=== PATIENT | male | born 1950 | race Caucasian/White ===

== ENCOUNTER 2019-10-23 05:34 | Outpatient (RCR) | payer MEDICARE, OTHER, SELFPAY | END 2019-10-23 23:59 | disposition home or self-care (01) | LOC: ONCRAD 05:34 | PROVIDERS: Family Provider Family Medicine; Referring Provider Internal Medicine Pulmonary Disease; Visit Provider Nurse Practitioner Family | DX: Z51.0 Encounter for antineoplastic radiation therapy (principal); C34.2 Malignant neoplasm of middle lobe, bronchus or lung; C77.8 Secondary and unspecified malignant neoplasm of lymph nodes of multiple regions; C79.31 Secondary malignant neoplasm of brain; C44.41 Basal cell carcinoma of skin of scalp and neck; Z79.82 Long term (current) use of aspirin; Z79.52 Long term (current) use of systemic steroids; Z79.899 Other long term (current) drug therapy | CPT/HCPCS: 77336; 77386 ×5 ==

== ENCOUNTER 2019-10-28 06:11 | Outpatient (RCR) | payer MEDICARE, OTHER, SELFPAY | END 2019-11-17 00:01 | LOC: ONCRAD 06:11 | PROVIDERS: Family Provider Family Medicine; Referring Provider Internal Medicine Pulmonary Disease; Visit Provider Internal Medicine Medical Oncology | DX: C34.2 Malignant neoplasm of middle lobe, bronchus or lung (principal); C79.31 Secondary malignant neoplasm of brain; C77.8 Secondary and unspecified malignant neoplasm of lymph nodes of multiple regions; I10 Essential (primary) hypertension; I25.10 Atherosclerotic heart disease of native coronary artery without angina pectoris; K44.9 Diaphragmatic hernia without obstruction or gangrene; K21.9 Gastro-esophageal reflux disease without esophagitis; N40.0 Benign prostatic hyperplasia without lower urinary tract symptoms; F10.21 Alcohol dependence, in remission; N20.0 Calculus of kidney; E07.89 Other specified disorders of thyroid; Z85.828 Personal history of other malignant neoplasm of skin; Z92.3 Personal history of irradiation; Z87.891 Personal history of nicotine dependence; Z79.899 Other long term (current) drug therapy; Z79.82 Long term (current) use of aspirin; Z79.52 Long term (current) use of systemic steroids | CPT/HCPCS: 99214 ==

== ENCOUNTER 2019-12-07 14:15 | Outpatient (CLI) | payer MEDICARE, OTHER, SELFPAY ==
--- NOTE | 2019-12-07 14:22 | CT_ITS ---
WS: [id number] CT CHEST WITH INTRAVENOUS CONTRAST HISTORY: LUNG CANCER TECHNIQUE: Contiguous 5 mm axial imaging performed on the thorax. Coronal and sagittal reformats are submitted. All CT scans at [facility] use at least one of these dose optimization techniq ues: automated exposure control; mA and/or kV adjustment per patient size (includes targeted exams wh ere dose is matched to clinical indication); or iterative reconstruction. CONTRAST: Omnipaque 300; 95 mL IV. DLP: 618.3 mGy.cm COMPARISON: 01/29/2019 and 12/09/2018, PET/CT 05/16/2019 Lungs and central airway: Mild pulmonary hyperinflation. Residual soft tissue in the RIGHT lower lobe abutting the RIGHT heart and pericardium measures 1.9 x 0.7 cm. There is within an area of the previ ously described soft tissue mass. There is a small amount of adjacent interstitial thickening in the RIGHT lower lobe and also in the azygos esophageal recess. No new mass. Pleura: Normal. No pleural effusion. Heart and pericardium: Normal size heart. No pericardial effusion. Mediastinum and jose juan: Stable RIGHT hilar lymph node measures 9 mm in diameter. No adenopathy or incre ase in size of the lymph nodes. Vessels: Mild atherosclerosis aorta with no aneurysm. Normal pulmonary artery size. Chest wall and lower neck: No soft tissue masses. Upper abdomen: LEFT renal cyst measures 4.8 cm and incompletely visualized. There are a few scattered hypodensities within the liver which are too small to characterize. No adrenal mass. Osseous structures: Increase in thoracic kyphosis. Bones are osteopenic with Schmorl's nodes. Similar findings as compared to prior examinations. CT/CT chest w con* [id number] IMPRESSION: 1. Small residual soft tissue mass in the anterior RIGHT lower lobe from the t reated neoplasm. May be at the residual of posttreated neoplasm. Decrease in si ze since 01/29/2019 and but slightly more prominent as compared to the PET/CT of 05/16/2019. Recommend follow-up chest CT in 3-4 months. 2. No adenopathy. 3. No adrenal mass. 4. Chronic emphysema and mild atherosclerosis aorta.
[2019-12-07 16:35] LABS: Blood Urea Nitrogen 19 mg/dL (8-23)
[2019-12-07] MEDS: iohexol 300 mg/mL 100 mL Btl IV (16:51)
== END 2019-12-07 14:16 | disposition home or self-care (01) ==
LOC: RAD 14:19
PROVIDERS: Family Provider Family Medicine; PCP Family Medicine; Visit Provider Radiology Radiation Oncology
DX: C77.8 Secondary and unspecified malignant neoplasm of lymph nodes of multiple regions (principal); C34.2 Malignant neoplasm of middle lobe, bronchus or lung; J43.9 Emphysema, unspecified; I70.0 Atherosclerosis of aorta; Z92.3 Personal history of irradiation
CPT/HCPCS: 36415; 71260; 82565; 84520

== ENCOUNTER 2019-12-08 04:25 | Emergency (ER) | payer MEDICARE, OTHER, SELFPAY ==
[2019-12-08] VITALS (21 sets, daily range): BP systolic 141–189; BP diastolic 87–104; PULSE 18–93; RESP 10–18; TEMP 36.6; O2SAT 95–100; BMI 26.5
--- NOTE | 2019-12-08 04:32 | ED_ITS ---
Entered by Nakita Victoria, acting as scribe for Laurie Ness Documented by User: Laurie Ness 12/08/19 05:15 HPI - General Adult General: Chief complaint: General Medical Stated complaint: BP OUT OF CONTROL Time Seen by Provider: 12/08/19 04:27 Source: patient Mode of arrival: ambulatory History of Present Illness: HPI narrative: 69 y/o male presents to the ED with complaint of elevated BP. Pt states he has hx of this but it has been more erratic over the past 4 days. Pt states he has had some lightheadedness, which prompted him to check his BP. In the past, it has been related to urinary retention and could be resolved upon emptying his bladder. 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 Onset (ago): day(s) (4) Location: head Severity: mild Pain Consistency: intermittent Relieving factors: none Associated symptoms: Deny chest pain, confusion, diaphoresis, dyspnea, headache(s), malaise, nausea, rash, syncope or vomiting Treatments prior to arrival: other (self cath) Review of Systems Const: Denies: fever, chills, body aches, fatigue, malaise or diaphoresis Eyes: Denies: change in vision or blurry vision ENMT: Denies: throat pain, painful swallowing, hoarseness, ear pain, ear discharge, Change in hearing or nasal discharge Card: Denies: chest pain or syncope Resp: Denies: shortness of breath, productive cough, non-productive cough, wheezing, coughing up blood or chest congestion GI: Denies: abdominal pain, nausea, vomiting, vomiting blood, coffee grounds in vomit, diarrhea, constipation, cramping, blood in stool or black tarry stool Musc: Denies: neck pain, back pain, extremity pain, extremity swelling, joint pain, joint swelling, joint warmth or joint stiffness Skin/Breast: Denies: rash or yellow skin Neuro: Denies: headache, numbness in extremities, weakness in extremities, changes in sensation, lack of coordination, difficulty walking, dizziness, vertigo or confusion Endo: Denies: excessive thirst, tired all the time, cold intolerance, excessive sweating, flushing or hot flashes Az/Lymph: Denies: easy bruising, easy bleeding, petechiae or enlarged lymph nodes All/Imm: Denies: hives, throat swelling, tongue swelling, facial swelling or acute wheezing PFSH ED PFSH: Statuses (acute, chronic, etc) shown below reflect problem list status as previously entered and may not be historically accurate Social History Smoking and tobacco status: former smoker Physical Exam Const: COMMON NORMALS: no apparent distress, oriented x3, no limitations and well nourished EXAM LIMITATIONS: no altered mental status GENERAL APPEARANCE: cooperative, well kempt and well developed ORIENTATION/CON SCIOUSNESS: Yes awake HENMT: COMMON NORMALS: normocephalic, external ears normal, EAC's normal, external nose normal and moist oral mucous membranes HEAD & SCALP: normocephalic FACE & SINUS: normal facial exam and face symmetric NOSE: external nose normal and nares normal EXTERNAL EAR: Yes external ears normal EXTERNAL AUDITORY CANAL: EAC's normal MOUTH: oral and palatal mucosa normal and tongue normal Eye: COMMON NORMALS: PERRL, EOMs intact bilaterally, conjunctivae normal and no scleral icterus GENERAL EYE: normal appearance of both eyes and normal light reflex CONJUNCTIVA: Yes conjunctivae normal SCLERA: sclerae normal CORNEA: Yes corneas normal PUPIL: Yes PERRL DIRECT OPHTHALMOSCOPY: Yes normal light reflex Neck/C-Spine: COMMON NORMALS: full ROM, no lymphadenopathy, supple, no meningeal signs and no JVD GENERAL: Yes normal visual inspection and Yes trachea midline CERVICAL SPINE: Yes cervical ROM normal Chest: COMMONS NORMALS: inspection of chest normal and palpation of chest normal Resp: COMMON NORMALS: normal respiratory effort, no retractions, no use of accessory muscles and clear to auscultation bilaterally EFFORT & INSPECTION: Yes able to speak in complete sentences AUSCULTATION: clear to auscultation bilaterally Cardio: COMMON NORMALS: no JVD GI: COMMON NORMALS: soft to palpation, non-tender, no hepatosplenomegaly and no masses INSPECTION: Yes normal to inspection PALPATION: Yes soft and Yes no hepatosplenomegaly : COMMON NORMALS: Yes no CVA tenderness BLADDER/KIDNEY EXAM: Yes no CVA tenderness Back/Pelvis: COMMON NORMALS: no CVA tenderness, thoracic and lumbar spine normal to inspection, no thoracic nor lumbar tenderness and thoraco-lumbar ROM normal Extremity: COMMON NORMALS: normal to inspection, full ROM, normal capillary refill, no joint enlargement, no clubbing, cyanosis or edema and no calf tenderness Neuro: COMMON NORMALS: oriented x3, CN's II-XII intact bilaterally, moves all extremities, no focal motor deficits and no sensory deficits noted MENINGEAL SIGNS: Yes no meningeal signs Psych: COMMON NORMALS: mental status grossly normal, thought process normal, cooperative, affect normal, speech normal and activity/motor behavior normal APPEARANCE: Yes well kempt SPEECH: Yes normal speech THOUGHT PROCESS: normal thought process Skin: COMMON NORMALS: no rashes or lesions noted, skin turgor normal, no jaundice, no petechiae and no mottling GENERAL SKIN EXAM: no rashes or lesions noted and turgor normal Course Vital Signs: Vital signs: Vital Signs Temperature 97.8 F 12/08/19 04:29 Pulse Rate 80 12/08/19 06:25 Respiratory Rate 14 12/08/19 05:55 Blood Pressure 154/96 12/08/19 06:25 Pulse Oximetry 96 12/08/19 06:25 MDM - General Adult MDM Narrative: Medical decision making narrative: Arrival -patient comes in with concern of his blood pressure being up and down for the past 4 days. Differential for this is long including infection, catecholamine surge, hypertensive emergency/urgency among others. Patient is having no headache, chest pain, shortness of breath but does have lightheadedness. We will check orthostatics and perform a cardiac evaluation. We will monitor the patient to see if his blood pressure improves on its own as it is not in a dangerous range at this time. Lab Data: Labs: Lab Results 12/08/19 12/08/19 12/08/19 Range/Units 04:45 05:10 05:10 WBC 3.5 L (4.0-10.0) 10^3/ uL RBC 4.18 (4.1-5.3) 10^6/u L Hgb 12.4 (11.7-16.6) g/dL Hct 39.5 L (42.0-52.0) % MCV 94.5 H (80-94) fL MCH 29.7 (28.0-34.0) pg MCHC 31.4 (30.0-36.0) g/dL RDW 13.5 (12.1-15.1) % Plt Count 199 (130-400) 10^3/c mm MPV 10.6 H (7.4-10.4) fL Neut % (Auto) 55.0 % Lymph % (Auto) 23.2 % [place] % (Auto) 16.5 % Eos % (Auto) 4.1 % Baso % (Auto) 0.9 % Neut # (Auto) 1.9 (1.8-7.7) 10^3/u L Lymph # (Auto) 0.8 (0.8-4.8) 10^3/u L [place] # (Auto) 0.6 (0.2-0.9) 10^3/u L Eos # (Auto) 0.1 (0.0-0.8) 10^3/u L Baso # (Auto) 0.0 (0.0-0.1) 10^3/u L Nucleated RBC % (a uto) 0 % Nucleated RBCs # 0.0 /100WBC Sodium 140 (136-145) mmol/L Potassium 4.0 (3.5-5.1) mmol/L Chloride 102 (98-107) mmol/L Carbon Dioxide 26 (22-29) mmol/L Anion Gap 16.0 (5-19) BUN 16 (8-23) mg/dL Creatinine 1.0 (0.7-1.2) mg/dL Glucose 105 (74-106) mg/dL Calcium 10.0 (8.8-10.2) mg/Dl Total Bilirubin 0.2 (0.15-1.2) mg/dL AST 16 (0-40) U/L ALT 9 (0-41) U/L Alkaline Phosphata se 87 (40-130) IU/L Troponin T Baselin e 12 (0-15) ng/mL Troponin T 120 Min [place] (0-15) ng/mL Delta Troponin T (0-10) ABS# Total Protein 7.2 (6.6-8.7) g/dL Albumin 4.0 (3.5-5.2) g/dL Globulin 3.2 (1.3-4.6) g/dL 12/08/19 Range/Units 07:27 WBC (4.0-10.0) 10^3/ uL RBC (4.1-5.3) 10^6/u L Hgb (11.7-16.6) g/dL Hct (42.0-52.0) % MCV (80-94) fL MCH (28.0-34.0) pg MCHC (30.0-36.0) g/dL RDW (12.1-15.1) % Plt Count (130-400) 10^3/c mm MPV (7.4-10.4) fL Neut % (Auto) % Lymph % (Auto) % [place] % (Auto) % Eos % (Auto) % Baso % (Auto) % Neut # (Auto) (1.8-7.7) 10^3/u L Lymph # (Auto) (0.8-4.8) 10^3/u L [place] # (Auto) (0.2-0.9) 10^3/u L Eos # (Auto) (0.0-0.8) 10^3/u L Baso # (Auto) (0.0-0.1) 10^3/u L Nucleated RBC % (a uto) % Nucleated RBCs # /100WBC Sodium (136-145) mmol/L Potassium (3.5-5.1) mmol/L Chloride (98-107) mmol/L Carbon Dioxide (22-29) mmol/L Anion Gap (5-19) BUN (8-23) mg/dL Creatinine (0.7-1.2) mg/dL Glucose (74-106) mg/dL Calcium (8.8-10.2) mg/Dl Total Bilirubin (0.15-1.2) mg/dL AST (0-40) U/L ALT (0-41) U/L Alkaline Phosphata se (40-130) IU/L Troponin T Baselin e (0-15) ng/mL Troponin T 120 Min [place] 14.77 (0-15) ng/mL Delta Troponin T 2.77 (0-10) ABS# Total Protein (6.6-8.7) g/dL Albumin (3.5-5.2) g/dL Globulin (1.3-4.6) g/dL EKG Data^: EKG 1: Attestation: I personally reviewed and interpreted this EKG as follows: EKG interpretation date: 12/08/19 EKG interpretation time: 05:10 Prior EKG tracings: not available for review Interpretation: Normal sinus rhythm at 89 beats a minute, normal MD segments, normal QRS duration, normal QTC. Normal axis, no acute ST or T wave changes. 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 Problem Focused Documented by User: Jamie Vail DO 12/08/19 08:30 HPI - General Adult General: Chief complaint: General Medical Stated complaint: BP OUT OF CONTROL Time Seen by Provider: 12/08/19 04:27 PFSH ED PFSH: Statuses (acute, chronic, etc) shown below reflect problem list status as previously entered and may not be historically accurate Social History Smoking and tobacco status: former smoker Course Vital Signs: Vital signs: Vital Signs Temperature 97.8 F 12/08/19 04:29 Pulse Rate 80 12/08/19 06:25 Respiratory Rate 14 12/08/19 05:55 Blood Pressure 154/96 12/08/19 06:25 Pulse Oximetry 96 12/08/19 06:25 MDM - General Adult Lab Data: Labs: Lab Results 12/08/19 12/08/19 12/08/19 Range/Units 04:45 05:10 05:10 WBC 3.5 L (4.0-10.0) 10^3/ uL RBC 4.18 (4.1-5.3) 10^6/u L Hgb 12.4 (11.7-16.6) g/dL Hct 39.5 L (42.0-52.0) % MCV 94.5 H (80-94) fL MCH 29.7 (28.0-34.0) pg MCHC 31.4 (30.0-36.0) g/dL RDW 13.5 (12.1-15.1) % Plt Count 199 (130-400) 10^3/c mm MPV 10.6 H (7.4-10.4) fL Neut % (Auto) 55.0 % Lymph % (Auto) 23.2 % [place] % (Auto) 16.5 % Eos % (Auto) 4.1 % Baso % (Auto) 0.9 % Neut # (Auto) 1.9 (1.8-7.7) 10^3/u L Lymph # (Auto) 0.8 (0.8-4.8) 10^3/u L [place] # (Auto) 0.6 (0.2-0.9) 10^3/u L Eos # (Auto) 0.1 (0.0-0.8) 10^3/u L Baso # (Auto) 0.0 (0.0-0.1) 10^3/u L Nucleated RBC % (a uto) 0 % Nucleated RBCs # 0.0 /100WBC Sodium 140 (136-145) mmol/L Potassium 4.0 (3.5-5.1) mmol/L Chloride 102 (98-107) mmol/L Carbon Dioxide 26 (22-29) mmol/L Anion Gap 16.0 (5-19) BUN 16 (8-23) mg/dL Creatinine 1.0 (0.7-1.2) mg/dL Glucose 105 (74-106) mg/dL Calcium 10.0 (8.8-10.2) mg/Dl Total Bilirubin 0.2 (0.15-1.2) mg/dL AST 16 (0-40) U/L ALT 9 (0-41) U/L Alkaline Phosphata se 87 (40-130) IU/L Troponin T Baselin e 12 (0-15) ng/mL Troponin T 120 Min [place] (0-15) ng/mL Delta Troponin T (0-10) ABS# Total Protein 7.2 (6.6-8.7) g/dL Albumin 4.0 (3.5-5.2) g/dL Globulin 3.2 (1.3-4.6) g/dL 12/08/19 Range/Units 07:27 WBC (4.0-10.0) 10^3/ uL RBC (4.1-5.3) 10^6/u L Hgb (11.7-16.6) g/dL Hct (42.0-52.0) % MCV (80-94) fL MCH (28.0-34.0) pg MCHC (30.0-36.0) g/dL RDW (12.1-15.1) % Plt Count (130-400) 10^3/c mm MPV (7.4-10.4) fL Neut % (Auto) % Lymph % (Auto) % [place] % (Auto) % Eos % (Auto) % Baso % (Auto) % Neut # (Auto) (1.8-7.7) 10^3/u L Lymph # (Auto) (0.8-4.8) 10^3/u L [place] # (Auto) (0.2-0.9) 10^3/u L Eos # (Auto) (0.0-0.8) 10^3/u L Baso # (Auto) (0.0-0.1) 10^3/u L Nucleated RBC % (a uto) % Nucleated RBCs # /100WBC Sodium (136-145) mmol/L Potassium (3.5-5.1) mmol/L Chloride (98-107) mmol/L Carbon Dioxide (22-29) mmol/L Anion Gap (5-19) BUN (8-23) mg/dL Creatinine (0.7-1.2) mg/dL Glucose (74-106) mg/dL Calcium (8.8-10.2) mg/Dl Total Bilirubin (0.15-1.2) mg/dL AST (0-40) U/L ALT (0-41) U/L Alkaline Phosphata se (40-130) IU/L Troponin T Baselin e (0-15) ng/mL Troponin T 120 Min [place] 14.77 (0-15) ng/mL Delta Troponin T 2.77 (0-10) ABS# Total Protein (6.6-8.7) g/dL Albumin (3.5-5.2) g/dL Globulin (1.3-4.6) g/dL 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
--- NOTE | 2019-12-08 04:40 | XR_ITS ---
WS: [id number] PORTABLE CHEST HISTORY: cough COMPARISON: 07/01/2019 Hyperexpanded lungs with emphysema. Linear area of atelectasis or scar in the RIGHT lower lung field. Interstitial thickening in the medial RIGHT lower lung field corresponds to an area of prior radiati on treatment. No pneumonia. No pleural effusion or pneumothorax. Cardiac size: Normal. Mediastinum/Aorta: Mild atherosclerosis aorta. No osseous abnormality seen. XR/XR chest 1V portable [id number] IMPRESSION: 1. Chronic emphysema and subsegmental atelectasis or scar in the RIGHT lower l sari field. 2. Postradiation changes in the medial RIGHT lower lung field. No definite pne umonia.
--- NOTE | 2019-12-08 04:44 | ECG_ITS ---
Measurements Intervals [place] Rate: 66 P: 56 AK: 179 QRS: 61 QRSD: 85 T: 58 QT: 391 QTc: 410 SINUS RHYTHM WITH SINUS ARRHYTHMIA Compared to ECG 07/01/2019 12:16:10 Sinus bradycardia no longer present Electronically Signed On 12-08-2019 22:02:28 IGNITER CAPPER by Jonathan Healy M.D. [email or web address] f
[2019-12-08 04:58] LABS: Basophils % 0.9 %; Eosinophils # 0.1 10^3/uL (0.0-0.8); Eosinophils % 4.1 %; Hematocrit 39.5 % (42.0-52.0); Hemoglobin 12.4 g/dL (11.7-16.6); Lymphocytes # 0.8 10^3/uL (0.8-4.8); Lymphocytes % 23.2 %; Mean Corpuscular HGB Conc 31.4 g/dL (30.0-36.0); Mean Corpuscular Hemoglobin 29.7 pg (28.0-34.0); Mean Corpuscular Volume 94.5 fL (80-94); Mean Platelet Volume 10.6 fL (7.4-10.4); Monocytes # 0.6 10^3/uL (0.2-0.9); Monocytes % 16.5 %; Neutrophils # 1.9 10^3/uL (1.8-7.7); Nucleated Red Blood Cells % 0 %; Platelet Count 199 10^3/cmm (130-400); Red Blood Count 4.18 10^6/uL (4.1-5.3); Red Cell Distribution Width 13.5 % (12.1-15.1); White Blood Count 3.5 10^3/uL (4.0-10.0)
[2019-12-08 05:28] LABS: Troponin(5th) Baseline 12 ng/mL (0-15)
[2019-12-08 05:31] LABS: Alanine Aminotransferase 9 U/L (0-41); Alkaline Phosphatase 87 IU/L (40-130); Aspartate Amino Transferase 16 U/L (0-40); Blood Urea Nitrogen 16 mg/dL (8-23); Carbon Dioxide 26 mmol/L (22-29); Chloride 102 mmol/L (98-107); Globulin 3.2 g/dL (1.3-4.6); Glucose 105 mg/dL (74-106); Sodium 140 mmol/L (136-145); Total Bilirubin 0.2 mg/dL (0.15-1.2); Total Protein 7.2 g/dL (6.6-8.7)
--- NOTE | 2019-12-08 06:44 | ECG_ITS ---
Measurements Intervals [place] Rate: 66 P: 56 NM: 179 QRS: 61 QRSD: 85 T: 58 QT: 391 QTc: 410 SINUS RHYTHM WITH SINUS ARRHYTHMIA Compared to ECG 07/01/2019 12:16:10 Sinus bradycardia no longer present Electronically Signed On 12-08-2019 22:07:37 PROJECT ASSISTANT by Jonathan Healy M.D. [email or web address]
[2019-12-08 07:52] LABS: Troponin 5 2HR 14.77 ng/mL (0-15); Troponin 5 2HR Delta 2.77 ABS# (0-10)
[2019-12-08] MEDS: hyDRALAzine 20 mg/mL INJ 1 mL 5 MG IVP (08:37)
== END 2019-12-08 09:02 | disposition home or self-care (01) ==
PROVIDERS: Emergency Provider Emergency Medicine; Family Provider Family Medicine; PCP Family Medicine
DX: I10 Essential (primary) hypertension (principal); Z87.891 Personal history of nicotine dependence
CPT/HCPCS: 36415; 71045; 80053; 84484; 85025; 93005; 96374; 99283; J0360

== ENCOUNTER 2019-12-09 06:13 | Outpatient (RCR) | payer MEDICARE, OTHER, SELFPAY | END 2019-12-18 23:59 | disposition home or self-care (01) | LOC: ONCMED 06:13 | PROVIDERS: Family Provider Family Medicine; PCP Family Medicine; Visit Provider Radiology Radiation Oncology | DX: C34.2 Malignant neoplasm of middle lobe, bronchus or lung (principal); C77.8 Secondary and unspecified malignant neoplasm of lymph nodes of multiple regions; C79.31 Secondary malignant neoplasm of brain; E03.8 Other specified hypothyroidism; Z79.891 Long term (current) use of opiate analgesic; Z79.52 Long term (current) use of systemic steroids; Z92.3 Personal history of irradiation; Z85.828 Personal history of other malignant neoplasm of skin; Z92.21 Personal history of antineoplastic chemotherapy; Z92.25 Personal history of immunosuppression therapy | CPT/HCPCS: 99213 ==

== ENCOUNTER 2020-01-26 15:22 | Outpatient (CLI) | payer MEDICARE, OTHER, SELFPAY ==
--- NOTE | 2020-01-30 17:30 | ONC FU_ITS ---
Dr. Brower Patient Follow-Up Note Patient: Logan Maynard Unit #: [id number]: 1950 Dicatated By: Gerald Brower M.D.Date of Visit:Jan 26, 2020 Onc Med Follow-up/Prog Note Chief Complaint: Lung cancer/basal cell skin cancer. History of Present Illness: This is a 69 year-old man with stage IV non-small cell lung cancer and a locally advanced basal cell carcinoma involving the right frontal scalp. He had initially presented to Dr. Sanchez in July with an enlarging right frontal scalp skin lesion. He was referred to Dr. Pugh and determined on biopsy to have basal cell carcinoma. His subsequent evaluation included a head CT on 09/24/2018 which showed a lobulated right frontal scalp mass measuring 4.5 x 4.2 x 0.7 cm with invasion of the right frontal bone cortex. There was abnormal attenuation noted in the right frontal lobe measuring 4.0 x 3.2 cm. Metastatic or primary brain tumor was suspected, and MRI was recommended. Further evaluation with PET/CT on 10/04/2018 reportedly showed uptake in a right middle lobe lung mass and in right paratracheal and right hilar lymph nodes. There was also uptake in cervical lymph nodes bilaterally. Neck CT on 10/20/2018 showed multiple enlarged pathologic appearing lower cervical level III and level IV lymph nodes as well as enlarged supraclavicular and anterior mediastinal lymph nodes. These corresponded to FDG avid lymph nodes on the PET/CT. 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 The tumor cells showed strong cytoplasmic staining for CK-HMW, moderately strong cytoplasmic staining for CK-CAM 5.2, and strong nuclear positivity for TTF-1. He was then seen by Dr. Harding in [place] for resection of the basal cell carcinoma and he subsequently had pulmonary consultation there with Dr. Brandon Doyle. Repeat PET/CT on 11/13/2018 showed similar findings with FDG avid right middle lobe lung mass measuring 3.6 x 3 cm and hypermetabolic ruba disease which included bilateral lower cervical chain, supraclavicular, mediastinal, and right hilar lymph nodes. There was a questionable tiny focus of hypermetabolic activity in the liver. The irregular skin lesion on the forehead was hypermetabolic and showed evidence of calvarial invasion. Chest CT on 11/17/2018 showed right middle lobe mass measuring 4.1 cm with enlarged mediastinal, right hilar, and supraclavicular lymph nodes. Bilateral subcentimeter pulmonary nodules were too small to characterize. On 11/28/2018 he underwent bronchoscopy with EBUS/FNA of the right middle lobe mass and station 11 R lymph node. The lymph node biopsy was nondiagnostic. Biopsy from the right middle lobe lung mass was positive for adenocarcinoma. It was noted that a very limited amount of tumor was present. PD-L1 testing was going to be attempted, but there was insufficient material present for additional studies. Following the procedure he developed urinary retention, which ultimately did improve with tamsulosin. However, in the meantime, he also developed hypertension. He was admitted to the hospital on 12/09/2017, and his cardiac evaluation at that time was negative for any acute ischemia. He returned to the emergency room one week later with new onset of dizziness and vomiting. CT abdomen/pelvis showed persistent right middle lobe lung mass, measuring about 3 cm. There was partial atelectasis of the right middle lobe and there was additional bilateral lower lobe subsegmental atelectasis and/or interstitial pneumonia. Head CT showed persistent and increased degree of vasogenic edema of the right frontal lobe suggestive of underlying neoplastic process. Irregular marginated frontal scalp lesion showed increased degree of subtle outer table cortical erosion of the underlying right frontal calvarium. He was admitted to the hospital and placed on IV dexamethasone and empiric IV antibiotic coverage with Levaquin. Further evaluation with brain MRI on 12/18/2018 showed a right frontal lobe enhancing neoplastic lesion measuring 1.5 x 1.2 x 1.4 cm. The appearance was suggestive of a solitary metastatic lesion. There was associated vasogenic white matter edema. His symptoms had improved with steroid therapy, and he was discharged home on dexamethasone 4 mg twice a day. He also continued antibiotic coverage with Levaquin. He was then seen by Dr. Munguia and he began electron-beam radiation to the scalp lesion on 12/22/2018. On 12/25/2018 he underwent SRS to the metastatic lesion in the brain, total dose 2000 cGy. He then continued with electron-beam radiation, and he completed treatment to the skin lesion on 01/16/2019, total dose 5500 cGy. In the meantime, I had requested a next generation sequencing study which showed low PD-L1 expression, reported at 10% to 22C3 by IHC. The ALK and ROS 1 gene rearrangements were not detected, and a BRAF mutation was not detected. 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 His other medical illnesses include hypertension, coronary artery disease, hiatal hernia/GERD, and benign prostatic hypertrophy. He has a history of smoking for 27 years, in the range of 2-3 packs of cigarettes daily. He quit smoking in 1992. He currently does not drink alcohol, though he did have significant alcohol use in the past. INTERIM HISTORY: On 02/16/2019 he began cycle 1 of systemic therapy with carboplatin/pemetrexed chemotherapy in combination with pembrolizumab. He tolerated it without significant toxicity. He continued with cycle 2 on 03/11/2019. His CBC at day 8 showed a decrease in his granulocyte count to 900. It resolved uneventfully with Neupogen. He continued with cycle 3 on 03/31/2019 and with cycle 4 on 04/21/2019, both administered with Neulasta prophylactically. Restaging PET/CT on 05/16/2019 showed resolution of the basal cell carcinoma of the right forehead. There was also resolution of bilateral jugulodigastric and supraclavicular lymph nodes compared to the prior study from September 2018. Superior mediastinal, right paratracheal, right parabronchial, and right hilar territory lymph nodes which previously had been prominent were noted to be subcentimeter in size with FDG uptake similar to mediastinal background. A 1.5 cm right paratracheal index lymph node was no longer identified. The 2.3 x 2.1 cm right lung mass was noted to be FDG negative, consistent with a complete response to therapy. He then continued on to maintenance therapy with pembrolizumab 200 mg by IV infusion every 3 weeks. He completed cycle 1 on 05/27/2019 and cycle 2 on 06/16/2019. Restaging MRI of the head on a 2018 showed marginal decrease in the size of the right posterior frontal metastatic lesion compared to the March 2019 study. There was decreased associated white matter edema. There were no new metastatic lesions identified. However, following his cycle 2 pembrolizumab, he developed significant musculoskeletal pain, particularly in the upper extremities. The pain initially improved on prednisone 10 mg twice a day, but they worsened again when the prednisone dosage was tapered down. He opted not to take any further treatment. However, with PET/CT evidence of complete response to treatment, Dr. Munguia had recommended consolidation radiation to the right lung. He ultimately did agree to the treatment, which he completed on 10/26/2019 to a total dose of 6000 cGy. He was then followed on observation/expectant management. He is seen for a follow-up visit. He has been feeling somewhat better generally. Much of that he attributes to having stopped aspirin back at [facility]. He says that within 2 days his pain improved significantly, to the point that since then he has had just occasional burning in his hands and arms. His energy is variable. He is able to do light work. His ECOG score is 1. He has good appetite. He does not have fever or night sweats. He does have some cough, which he attributes to scratchy throat. He has no shortness of breath or chest pain. He occasionally has nausea and/or gas. Bowel function has been okay. He says his urination is much better now. He reports having some muscle tightening, but overall that is also much better. He does not complain of headache. He occasionally has lightheadedness. He has some residual neuropathy in his hands and occasionally in his toes. Medications: Levothyroxine Sodium 1 Tablet (of 75 mcg) Oral daily Allergies: Sulfonylureas Review of Systems: Constitutional - His energy is variable. He has not been as active. He is still doing some light work. His appetite is good and his weight is up a couple of pounds. He has no fever or night sweats. No fever. ECOG score is 1, ENMT - No sinus congestion/drainage. No mouth sores. No sore throat or difficulty swallowing, Hematologic/Lymphatic - No abnormal bruising or bleeding, Respiratory - No shortness of breath. He has little bit of cough. No pleuritic pain or hemoptysis, Cardiovascular - He had chest pain while on Flomax. No palpitations, Gastrointestinal - He has some nausea and gas. No diarrhea or constipation. No blood in the stool or black stools, Genitourinary (M) - He is voiding much better. No dysuria or hematuria. No urinary frequency. No urgency or incontinence, Musculoskeletal - He still has some joint pain, but it has improved. He has some muscle twitching, Integumentary - No skin complications, Neurologic - No headache. He occasionally has lightheadedness. He has only minimal residual neuropathy, Psychiatric - He has some anxiety and depression. No insomnia. Vital Signs: Performed on Jan 26, 2020 15:33 Height - 70.00 in Weight - 192.8 lbs (HIGH) BSA - 2.06 sq.m BMI - 27.66 Temperature - 98.4 F Pulse - 76 /min Respiration - 18 /min BP - 141/74 mm(hg) (HIGH) O2 Sat - 97 % Pain - 3 Physical Examination: Constitutional - He looks pretty good generally, Eyes - Sclerae nonicteric. Conjunctivae clear, ENMT - No lesions noted in the oral cavity, Hematologic/Lymphatic - No cervical, clavicular, or axillary adenopathy, Respiratory - Lungs are clear with some decrease in air movement bilaterally, Cardiovascular - Heart rhythm is regular. There is no murmur, gallop, or rub noted, Abdomen - Soft. Liver and spleen are not enlarged. There is no abdominal mass or ascites noted and there is no inguinal adenopathy, Extremities - No edema, Integumentary - He has blotchy erythema in the facial area. He still has a small residual open wound in the right frontal scalp area, Neurologic - No focal neurologic deficits noted. Impression: 1. Patient with biopsy-proven non-small cell carcinoma involving the middle lobe of the right lung, stage IV ( T2a, N3, M1b). There was CT evidence of multiple sites of lymph node involvement with biopsy proven involvement in a tracheoesophageal lymph node. There was some discrepancy in the reported histology of the 2 biopsies, but this was likely related to the small sample size of the lung biopsy. 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 The PD-L1 expression was reported low at 10%. 2. There was MRI evidence of solitary brain metastasis involving the right frontal lobe. 3. He also has a locally advanced basal cell skin carcinoma involving the right frontal scalp. His other medical illnesses include: 4. Hypertension. 5. Coronary artery disease with previous myocardial infarction and angioplasty/stent placement. 6. Hiatal hernia/GERD. 7. Benign prostatic hypertrophy with recent urinary retention. His symptoms improved on steroid therapy. He was then seen Dr. Munguia, and he underwent SRS to the brain metastasis, completed on 12/25/2018 3 total dose of 2000 cGy, and he completed electron beam radiation to the basal cell carcinoma, completed on 01/16/2019 to a total dose of 5500 cGy. On 02/16/2019 he began cycle 1 of systemic therapy with carboplatin/pemetrexed chemotherapy in combination with pembrolizumab. He tolerated it very well. He continued with cycle 2 on 03/11/2019. With that cycle he did have more fatigue, and he developed moderately severe neutropenia. He recovered uneventfully with Neupogen. He was given Neulasta prophylactically with cycle 3 on 03/31/2019 and was cycle 4 on 04/22/2019. His blood counts remained adequate, but he did have multiple other side effects, particularly after his 4th cycle. His restaging PET/CT on 05/16/2019 showed a very good clinical response to the treatment. His treatment was then transitioned to maintenance pembrolizumab, cycle 1 on 05/27/2019. He continued with cycle 2 on 06/16/2019. That treatment was complicated by significant musculoskeletal pain, which had initially improved with steroid therapy. During subsequent followup he had recurrence of the joint pain as his prednisone was tapered. His activity tolerance has been variable. Dr. Munguia had recommended consolidation radiation, as the known areas of involvement in the chest/neck were able to be encompassed within a radiation field. Ultimately he did agree to the treatment, which he completed on 10/26/2019 to a total dose of 6000 cGy. During follow-up he has required treatment for nephrolithiasis. He also was found to have hypothyroidism. He reported significant improvement in his musculoskeletal/neuropathy pain after stopping aspirin, and overall he appears to be doing better clinically. As yet he has not had any restaging for the lung cancer. Plan: He remains on observation/expectant management for the lung cancer. He will be scheduled for restaging chest CT and brain MRI. He will have further evaluation as indicated. In the absence of any evidence of disease progression, I will just plan to see him again in 3 months. Signed By: Gerald Brower M.D. <<Signature on File>>
== END 2020-01-26 15:23 | disposition home or self-care (01) ==
LOC: ONCMED 15:22
PROVIDERS: Family Provider Family Medicine; PCP Family Medicine; Visit Provider Internal Medicine Medical Oncology
DX: C34.2 Malignant neoplasm of middle lobe, bronchus or lung (principal); C79.31 Secondary malignant neoplasm of brain; C77.8 Secondary and unspecified malignant neoplasm of lymph nodes of multiple regions; G62.0 Drug-induced polyneuropathy; T45.1X5A Adverse effect of antineoplastic and immunosuppressive drugs, initial encounter; N40.1 Benign prostatic hyperplasia with lower urinary tract symptoms; R33.8 Other retention of urine; Z85.828 Personal history of other malignant neoplasm of skin; E03.9 Hypothyroidism, unspecified; I10 Essential (primary) hypertension; I25.10 Atherosclerotic heart disease of native coronary artery without angina pectoris; K44.9 Diaphragmatic hernia without obstruction or gangrene; K21.9 Gastro-esophageal reflux disease without esophagitis; F10.21 Alcohol dependence, in remission; Z79.899 Other long term (current) drug therapy; Z92.21 Personal history of antineoplastic chemotherapy; Z87.891 Personal history of nicotine dependence; Z92.3 Personal history of irradiation
CPT/HCPCS: 99214

== ENCOUNTER 2020-02-02 14:41 | Outpatient (CLI) | payer MEDICARE, OTHER, SELFPAY ==
--- NOTE | 2020-02-02 14:49 | MR_ITS ---
WS: [id number] MRI of the head and brain with and without IV contrast, 02/02/2020 Clinical Data: LUNG CANCER;BRAIN METS Comparison: MRI of the head and brain, 07/08/2019. Findings: The posterior right frontal metastatic lesion remains essentially unchanged.It measures 0.9 x 1.18 cm . No new lesions are seen. Ventricular system is normal without shift. No recent infarct or hemorrhage is seen. No new abnormal intracerebral mass is present. The cerebellum and brainstem are unremarkable. The carotid arteries show no aneurysms. The regions of nerves VII and VIII and the mastoid air cells are unremarkable. The pituitary and intraorbital contents are normal. There is mucoperiosteal thickening of the right f rontal sinus. There is skin loss over the right frontal bone from basal cell carcinoma resection. MR/MR head wo/w con [id number] Impression: 1. No change in posterior right frontal metastatic lesion. 2. Negative for new metastatic lesions. 3. Skin resection over the right frontal bone from basal cell carcinoma resecti on unchanged.
[2020-02-02 15:09] LABS: Basophils % 0.6 %; Eosinophils # 0.1 10^3/uL (0.0-0.8); Eosinophils % 1.1 %; Hematocrit 39.3 % (42.0-52.0); Hemoglobin 12.4 g/dL (11.7-16.6); Lymphocytes # 0.8 10^3/uL (0.8-4.8); Lymphocytes % 16.9 %; Mean Corpuscular HGB Conc 31.6 g/dL (30.0-36.0); Mean Corpuscular Hemoglobin 29.7 pg (28.0-34.0); Mean Platelet Volume 10.5 fL (7.4-10.4); Monocytes # 0.7 10^3/uL (0.2-0.9); Monocytes % 14.8 %; Neutrophils # 3.1 10^3/uL (1.8-7.7); Neutrophils % 66.4 %; Nucleated Red Blood Cells % 0 %; Platelet Count 224 10^3/cmm (130-400); Red Blood Count 4.18 10^6/uL (4.1-5.3); Red Cell Distribution Width 12.5 % (12.1-15.1); White Blood Count 4.7 10^3/uL (4.0-10.0)
[2020-02-02 15:38] LABS: Alanine Aminotransferase 11 U/L (0-41); Albumin Level 4.2 g/dL (3.5-5.2); Alkaline Phosphatase 84 IU/L (40-130); Anion Gap 14.1 (5-19); Aspartate Amino Transferase 22 U/L (0-40); Blood Urea Nitrogen 18 mg/dL (8-23); Calcium 9.7 mg/dL (8.5-10.5); Carbon Dioxide 28 mmol/L (22-29); Chloride 101 mmol/L (98-107); Free T4 Free Thyroxine 1.04 ng/dL (0.82-1.77); Globulin 3.1 g/dL (1.3-4.6); Glucose 93 mg/dL (65-115); Osmolality Calculated 284 mOsm/kg (285-295); Potassium 4.1 mmol/L (3.5-5.1); Sodium 139 mmol/L (136-145); Thyroid Stimulating Hormone 11.15 uIU/mL (0.27-4.20); Total Bilirubin 0.4 mg/dL (0.15-1.2); Total Protein 7.3 g/dL (6.6-8.7)
== END 2020-02-02 14:42 | disposition home or self-care (01) ==
PROVIDERS: Family Provider Family Medicine; PCP Family Medicine; Visit Provider Internal Medicine Medical Oncology
DX: C34.2 Malignant neoplasm of middle lobe, bronchus or lung (principal); C79.31 Secondary malignant neoplasm of brain; C77.8 Secondary and unspecified malignant neoplasm of lymph nodes of multiple regions; E03.9 Hypothyroidism, unspecified; Q61.02 Congenital multiple renal cysts; N20.0 Calculus of kidney; Z85.828 Personal history of other malignant neoplasm of skin
CPT/HCPCS: 70553; 80053; 84439; 84443; 85025; A9579

== ENCOUNTER 2020-02-04 09:35 | Outpatient (CLI) | payer MEDICARE, OTHER, SELFPAY ==
--- NOTE | 2020-02-04 09:44 | CT_ITS ---
WS: [id number] CT scan of the chest With IV contrast, CT scan of the abdomen and pelvis with IV contrast and oral contrast. Additional two-dimensional coronal and sagittal reconstruction was performed. 02/04/2020 Clinical Data: RESTAGING LUNG CANCER Comparison: CT chest, 12/07/2019, CT abdomen and pelvis, 10/23/2019. DLP: 2460.[address] scans at [facility] use at least one of these dose optimization techniques: automat ed exposure control; mA and/or kV adjustment per patient size (includes targeted exams where dose is matched to clinical indication); or iterative reconstruction. Findings: Chest: There is a mass adjacent to the right border measuring 1.76 cm unchanged. There is scarring in the ri ght hilum and posteriorly and anteriorly from the right hilum probably from radiation therapy the lef t lung shows no abnormalities. No large masses or effusions are seen. The trachea bifurcates normally into the bronchi. The heart size is normal with no pericardial effusion. The pulmonary arterial system and thoracic aorta demonstrate no abnormalities or dilatations. There is no axillary or significant mediastinal adenopathy. The bones of the thorax show no metastati c lesions but there is osteoarthritis of the thoracic vertebral bodies. Abdomen/pelvis: The liver, gallbladder, spleen, adrenal glands and pancreas are normal. The kidneys show equal bilateral contrast excretion with bilateral renal cysts unchanged. The largest cyst in the left kidney is 5.49 cm. There is a large left renal calculus with dimension of 1.97 cm. Left pyelocaliectasis is seen but there are no ureteral calculi. The right kidney shows no definite c alculi.. The abdominal aorta is normal in size. There is distal calcification in the normal aorta with dilatat ion of the right common iliac artery unchanged. No appendicitis or diverticulitis is seen. Oral contr ast is in the stomach and small bowel and there is no bowel dilatation. Abscess, adenopathy, ascites, mass, obstruction or free air is seen. The bladder is unremarkable. Bilateral fat-containing inguinal hernias are noted The bones of the low er thorax, lumbar spine, pelvis, and hips show no metastatic lesions.. CT/CT chest abd pel w con* Impression: 1. Small mass adjacent to the right cardiac border unchanged. 2. Posttreatment changes of fibrosis anterior and posterior to the right hilum unchanged. 3. Multiple bilateral renal cysts with large left intrarenal calculus but no ur eteral calculi.
[2020-02-04] MEDS: iohexol 300 mg/mL 50 mL Btl PO (10:01)
[2020-02-04] MEDS: iohexol 300 mg/mL 100 mL Btl IV (10:59)
== END 2020-02-04 09:36 | disposition home or self-care (01) ==
LOC: ONCMED 09:43
PROVIDERS: Family Provider Family Medicine; PCP Family Medicine; Visit Provider Internal Medicine Medical Oncology
DX: C34.2 Malignant neoplasm of middle lobe, bronchus or lung (principal); C79.31 Secondary malignant neoplasm of brain; Q61.02 Congenital multiple renal cysts; N20.0 Calculus of kidney
CPT/HCPCS: 71260; 74177; Q9967

== ENCOUNTER 2020-03-27 21:27 | Emergency (ER) | payer MEDICARE, OTHER, SELFPAY ==
--- NOTE | 2020-03-27 21:28 | XR_ITS ---
WS: [id number] PORTABLE CHEST HISTORY: Acute onset chest pain. COMPARISON: 12/08/2019 Pulmonary hyperinflation from emphysema. No pneumonia. Normal vasculature. No pleural effusion or pne umothorax. Cardiac size: Normal. Mediastinum/Aorta: Mild atherosclerosis aorta. No osseous abnormality seen. XR/XR chest 1V portable [id number] IMPRESSION: Chronic emphysema and mild atherosclerosis aorta.
[2020-03-27 21:36] VITALS: BP 190/102; PULSE 101; RESP 18; TEMP 36.8; O2SAT 100; BMI 26.5
[2020-03-27 21:54] LABS: Basophils % 0.7 %; Eosinophils # 0.1 10^3/uL (0.0-0.8); Eosinophils % 1.9 %; Hematocrit 41.4 % (42.0-52.0); Hemoglobin 13.2 g/dL (11.7-16.6); Lymphocytes % 23.9 %; Mean Corpuscular HGB Conc 31.9 g/dL (30.0-36.0); Mean Corpuscular Hemoglobin 29.3 pg (28.0-34.0); Mean Corpuscular Volume 91.8 fL (80-94); Mean Platelet Volume 10.5 fL (7.4-10.4); Monocytes # 0.6 10^3/uL (0.2-0.9); Monocytes % 13.9 %; Neutrophils # 2.5 10^3/uL (1.8-7.7); Neutrophils % 59.4 %; Nucleated Red Blood Cells % 0 %; Platelet Count 215 10^3/cmm (130-400); Red Blood Count 4.51 10^6/uL (4.1-5.3); Red Cell Distribution Width 13.4 % (12.1-15.1); White Blood Count 4.2 10^3/uL (4.0-10.0)
[2020-03-27 21:58] VITALS: BP 193/112; PULSE 90; RESP 18; O2SAT 100
--- NOTE | 2020-03-27 22:01 | PC.NURSE ---
MD at bedside for evaluation
[2020-03-27 22:14] LABS: Alanine Aminotransferase 13 U/L (0-41); Albumin Level 4.3 g/dL (3.5-5.2); Alkaline Phosphatase 79 IU/L (40-130); Anion Gap 17.9 (5-19); Aspartate Amino Transferase 21 U/L (0-40); Blood Urea Nitrogen 14 mg/dL (8-23); Calcium 10.1 mg/dL (8.5-10.5); Carbon Dioxide 24 mmol/L (22-29); Chloride 104 mmol/L (98-107); Globulin 3.6 g/dL (1.3-4.6); Glucose 100 mg/dL (65-115); Osmolality Calculated 290 mOsm/kg (285-295); Potassium 3.9 mmol/L (3.5-5.1); Sodium 142 mmol/L (136-145); Total Bilirubin 0.2 mg/dL (0.15-1.2); Total Protein 7.9 g/dL (6.6-8.7)
--- NOTE | 2020-03-27 22:14 | ED_ITS ---
HPI - General Adult General: Chief complaint: General Medical Stated complaint: high bp Time Seen by Provider: 03/27/20 21:54 History of Present Illness: HPI narrative: 69-year-old male with no cardiac history. He presents with high blood pressure. He had some mild chest tightness with it. He says his blood pressures been steadily increasing across the day. No shortness of breath. No headache. No other symptoms. Onset (ago): hour(s) Location: chest Radiation: non-radiation Severity: mild Quality: other (Tightness) Pain Consistency: intermittent Relieving factors: none Exacerbating factors: none Associated symptoms: Reports no associated symptoms and chest pain; Deny confusion, dyspnea, headache(s), nausea, rash, palpitations or vomiting Review of Systems Const: Denies: fever or chills Eyes: Denies: change in vision ENMT: Denies: painful swallowing or facial/sinus pain Card: Reports: chest pain and edema; Denies: palpitations or irregular heart rhythm Resp: Denies: shortness of breath, productive cough, non-productive cough or wheezing GI: Denies: abdominal pain, nausea or vomiting : Denies: difficulty urinating, urinary urgency or blood in urine Musc: Denies: neck pain or back pain Skin/Breast: Denies: rash, itching or redness Neuro: Denies: headache, dizziness, vertigo or confusion Psych: Reports: anxiety PFSH ED PFSH: Social History Smoking and tobacco status: former smoker Physical Exam Const: GENERAL APPEARANCE: well developed ORIENTATION/CONSCIOUSNESS: Yes oriented to person, Yes oriented to place and Yes oriented to time HENMT: COMMON NORMALS: normocephalic HEAD & SCALP: normocephalic FACE & SINUS: normal facial exam NOSE: no nasal discharge MOUTH: tongue normal TEETH & GINGIVA: no abnormal tooth and associated gingiva Eye: COMMON NORMALS: PERRL, EOMs intact bilaterally and conjunctivae normal EYELID: eyelids normal CONJUNCTIVA: Yes conjunctivae normal PUPIL: Yes PERRL Neck/C-Spine: GENERAL: No tracheal deviation Chest: COMMONS NORMALS: inspection of chest normal CHEST: No tenderness Resp: COMMON NORMALS: clear to auscultation bilaterally EFFORT & INSPECTION: No tachypneic, No respiratory distress, No retractions, No uses accessory muscles and No tracheal deviation AUSCULTATION: clear to auscultation bilaterally, no rhonchi, no wheezes and lung sounds not diminished Cardio: COMMON NORMALS: regular rate and regular rhythm RATE: regular rate RHYTHM: regular rhythm HEART SOUNDS: no murmurs PERIPHERAL PULSES: radial pulses present GI: INSPECTION: No abdominal distension AUSCULTATION: No hyperactive bowel sounds and No hypoactive bowel sounds PALPATION: No guarding and No rigid PERCUSSION: no dullness to percussion and no tympanic to percussion Neuro: SENSORIUM/ORIENTATION: Yes oriented to person, Yes oriented to place and Yes oriented to time Psych: COMMON NORMALS: mental status grossly normal Skin: COMMON NORMALS: no rashes or lesions noted GENERAL SKIN EXAM: no rashes or lesions noted Course Vital Signs: Vital signs: Vital Signs Temperature 98.2 F 03/27/20 21:36 Pulse Rate 100 03/28/20 00:53 Respiratory Rate 16 03/28/20 00:53 Blood Pressure 113/72 03/28/20 00:53 Pulse Oximetry 99 03/28/20 00:53 MDM - General Adult MDM Narrative: Medical decision making narrative: Blood pressure of 190/100. EKG did not reveal any ST changes. First troponin was negative. His laboratory is normal. Hydralazine plus amlodipine has lowered his blood pressure to 113/72 currently. His saturations are 99%. His heart rates in the 90s Lab Data: Labs: Lab Results 03/27/20 03/27/20 03/27/20 Range/Units 21:50 21:50 21:50 WBC 4.2 (4.0-10.0) 10^3/ uL RBC 4.51 (4.1-5.3) 10^6/u L Hgb 13.2 (11.7-16.6) g/dL Hct 41.4 L (42.0-52.0) % MCV 91.8 (80-94) fL MCH 29.3 (28.0-34.0) pg MCHC 31.9 (30.0-36.0) g/dL RDW 13.4 (12.1-15.1) % Plt Count 215 (130-400) 10^3/c mm MPV 10.5 H (7.4-10.4) fL Neut % (Auto) 59.4 % Lymph % (Auto) 23.9 % Lander % (Auto) 13.9 % Eos % (Auto) 1.9 % Baso % (Auto) 0.7 % Neut # (Auto) 2.5 (1.8-7.7) 10^3/u L Lymph # (Auto) 1.0 (0.8-4.8) 10^3/u L Lander # (Auto) 0.6 (0.2-0.9) 10^3/u L Eos # (Auto) 0.1 (0.0-0.8) 10^3/u L Baso # (Auto) 0.0 (0.0-0.1) 10^3/u L Nucleated RBC % (a uto) 0 % Nucleated RBCs # 0.0 /100WBC Sodium 142 (136-145) mmol/L Potassium 3.9 (3.5-5.1) mmol/L Chloride 104 (98-107) mmol/L Carbon Dioxide 24 (22-29) mmol/L Anion Gap 17.9 (5-19) BUN 14 (8-23) mg/dL Creatinine 1.0 (0.7-1.2) mg/dL Glucose 100 (65-115) mg/dL Calculated Osmolal ity 290 (285-295) mOsm/k g Calcium 10.1 (8.5-10.5) mg/dL Total Bilirubin 0.2 (0.15-1.2) mg/dL AST 21 (0-40) U/L ALT 13 (0-41) U/L Alkaline Phosphata se 79 (40-130) IU/L Troponin T Baselin e 13 (0-15) ng/mL Total Protein 7.9 (6.6-8.7) g/dL Albumin 4.3 (3.5-5.2) g/dL Globulin 3.6 (1.3-4.6) g/dL Discharge Plan Discharge Patient Disposition: Home, Self-Care Clinical Impression: Hypertension Qualifiers: Hypertension type: essential hypertension Qualified Code(s): I10 - Essential (primary) hypertension Condition: Stable Prescriptions: New amlodipine 10 mg tablet 10 mg PO DAILY Qty: 30 RF: 0 Discharge Orders: Discharge Order (Routine); Ordered 03/28/20 Ordered By: Mathieu Chisholm Referrals: Abdifatah Sanchez MD [Primary Care Provider] - 4-7 days Discharge Diet: Usual diet Discharge Activity: Increase activity as tolerated Patient Instructions: Hypertension (ED) Activity Restrictions/Additional Instructions: Check your blood pressure twice daily for the next several days. Report numbers to your physician. If your blood pressure is staying above 150/90, take the medication you were prescribed. If it is not staying above those numbers, do not take it. Return to the emergency department for chest discomfort, shortness of breath, headache, mental status changes or weakness. Return for other concerning symptoms. 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
[2020-03-27 22:15] LABS: Troponin(5th) Baseline 13 ng/mL (0-15)
[2020-03-27] MEDS: hyDRALAzine 20 mg/mL INJ 1 mL IVP (22:26)
[2020-03-27] MEDS: amlodipine 5 mg Tablet 10 MG PO (22:26)
[2020-03-28 00:53] VITALS: BP 113/72; PULSE 100; RESP 16; O2SAT 99
== END 2020-03-28 00:56 | disposition home or self-care (01) ==
PROVIDERS: Emergency Medicine; Emergency Provider Emergency Medicine; PCP Family Medicine
DX: I10 Essential (primary) hypertension (principal); Z87.891 Personal history of nicotine dependence
CPT/HCPCS: 12345; 71045; 80053; 84484; 85025; 96374; 99281; 99284; J0360

== ENCOUNTER 2020-04-27 15:12 | Outpatient (CLI) | payer MEDICARE, OTHER, SELFPAY ==
--- NOTE | 2020-04-27 15:37 | USCV_ITS ---
Aleyda, Max Age: 69 Gender: M : 1950 Exam Date: 04/27/2020 15:52 Ordering Phys: Abdifatah Sanchez MD Technologist: Macy Nuñez Exam Location: [facility] [place] Indication: Hypertension Risk Factors: None Previous Vascular Surgery: None Right Brachial BP: / Left Brachial BP: / Right Left Velocity (cm/s) Spectral Plaque Velocity (cm/s) Spectral Plaque Syst/Diast Broadening Syst/Diast Broadening 88.20/ 12.10 Prox CCA 84.70 / 13.75 83.80/ 12.10 Mid CCA 80.80 / 15.30 76.00/ 15.40 Distal CCA 68.80 / 16.40 63.30/ 12.10 Prox ICA 49.70 / 12.80 51.70/ 12.20 Mid ICA 47.10 / 15.50 57.70/ 17.30 Distal ICA 70.10 / 22.60 63.70 ECA 69.90 0.76 ICA/CCA 0.87 Antegrade Vertebral Antegrade 36.60/ 5.20 cm/s 41.30/ 9.50 cm/s Bi Subclavian Bi 86.40 89.40 FINDINGS Minimal plaques at the bifurcations bilaterally Intimal thickening and minimal plaques at the common carotid arteries bilaterally Normal Doppler flow velocities. Antegrade flow in the vertebral arteries bilaterally. Normal Doppler flow velocities in the subclavian arteries bilaterally CONCLUSIONS Minimal plaques at the bifurcations bilaterally. No significant stenosis, based on the above findings. Dr Jonathan Healy MD [facility] (Electronically Signed) Final Date: 27 April 2020 19:14 S
--- NOTE | 2020-04-27 15:42 | USCV_ITS ---
Aleyda, Max Age: 69 Gender: M : 1950 Exam Date: 04/27/2020 15:58 Ordering Phys: Abdifatah Sanchez MD Technologist: Exam Location: [facility] – [place]_ Indication: Hypertension Findings Right Brachial 183 Left Brachial 187 Right RA 178 Left RA 210 Right UA 192 Left UA 205 Right WBI 1.03 Left WBI 1.12 Conclusions Normal resting wrist brachial indicis bilaterally, suggesting no significant arterial obstruction in the upper extremities Dr Jonathan Healy MD [facility] (Electronically Signed) Final Date: 27 April 2020 19:10 S
== END 2020-04-27 15:13 | disposition home or self-care (01) ==
LOC: RAD 15:16
PROVIDERS: PCP Family Medicine; Visit Provider Family Medicine
DX: G45.9 Transient cerebral ischemic attack, unspecified (principal); I70.8 Atherosclerosis of other arteries; I10 Essential (primary) hypertension
CPT/HCPCS: 93880; 93922

== ENCOUNTER 2020-11-08 09:46 | Outpatient (CLI) | payer MEDICARE, OTHER, SELFPAY ==
--- NOTE | 2020-11-08 09:53 | MR_ITS ---
WS: [id number] MRI HEAD WITH CONTRAST TECHNIQUE: Sagittal T1, T2 axial, T2 axial FLAIR, axial susceptibility weighted imaging, axial diffus ion weighted images, and coronal T2 images were obtained. Pre and post-T1 axial and post T1 coronal i mages. ADC and FSPGR images. CLINICAL INFORMATION: LUNG CANCER, BRAIN METS COMPARISON: MRI 02/02/2020 and 07/08/2019. FINDINGS: Prior postoperative changes prior right frontal scalp and basal cell carcinoma resection. Stable unde rlying calvarial defect. No evidence of restricted diffusion to suggest acute ischemia. Ventricular s ystem and basal cisterns are patent. Again seen is the peripheral enhancing metastatic lesion in the right posterior frontal lobe not sign ificantly changed since February 02, 2020 today measuring 8 x 8 mm. T2 surrounding signal abnormality gordon s slightly progressed. No significant mass effect. Additional new enhancing metastatic lesion in the right frontoparietal white matter measuring 4 mm with a small amount of surrounding edema. Additional new enhancing leptomeningeal lesion right parietal lobe posteriorly measuring 7 mm. Small amount of edema in this location. Additional new tiny enhancing metastatic lesion along the right mesial tempor al lobe measuring 4 mm. Additional new 4.2 mm peripheral enhancing left cerebellar metastatic lesion. Additional tiny suspected metastatic lesion along the left mid temporal horn. Normal dural venous sinuses. Small amount of hemosiderin associated with the right posterior frontal previously described lesion. Mild small vessel changes. Moderate parenchymal volume loss. Normal vasc ular flow voids at the skull base. No extra-axial fluid collections. Mild mucosal thickening paranasa l sinuses. Mastoid air cells are well aerated. MR/MR head wo/w con [id number] IMPRESSION: 1. Previously described right posterior frontal lesion is not significantly ch anged today measuring 8 x 8 mm with slight increased nonenhancing surrounding T 2 signal abnormality likely due to treatment effect. 2. Multiple new subcentimeter enhancing supratentorial (4) metastatic lesions described above 3. Single enhancing posterior fossa lesion in the left cerebellum new from pre vious also consistent with metastatic disease measuring 4.2 mm. 4. No significant mass effect or midline shift. No hydrocephalus.
== END 2020-11-08 09:47 | disposition home or self-care (01) ==
LOC: RADWPI 09:49
PROVIDERS: PCP Family Medicine; Visit Provider Internal Medicine Medical Oncology
DX: C34.2 Malignant neoplasm of middle lobe, bronchus or lung (principal); C79.31 Secondary malignant neoplasm of brain
CPT/HCPCS: 70553; A9579

== ENCOUNTER 2020-11-15 07:42 | Outpatient (CLI) | payer MEDICARE, OTHER, SELFPAY ==
[2020-11-15 08:19] LABS: Basophils % 0.8 %; Eosinophils # 0.1 10^3/uL (0.0-0.8); Eosinophils % 2.5 %; Hemoglobin 13.5 g/dL (11.7-16.6); Lymphocytes # 0.8 10^3/uL (0.8-4.8); Lymphocytes % 19.8 %; Mean Corpuscular HGB Conc 32.1 g/dL (30.0-36.0); Mean Corpuscular Hemoglobin 29.1 pg (28.0-34.0); Mean Corpuscular Volume 90.5 fL (80-94); Mean Platelet Volume 11.2 fL (7.4-10.4); Monocytes # 0.6 10^3/uL (0.2-0.9); Monocytes % 15.3 %; Neutrophils # 2.41 10^3/uL (1.8-7.7); Neutrophils % 61.3 %; Nucleated Red Blood Cells % 0 %; Platelet Count 203 10^3/cmm (130-400); Red Blood Count 4.64 10^6/uL (4.1-5.3); Red Cell Distribution Width 12.4 % (12.1-15.1); White Blood Count 3.9 10^3/uL (4.0-10.0)
[2020-11-15 08:40] LABS: Alanine Aminotransferase 10 U/L (0-41); Albumin Level 3.9 g/dL (3.5-5.2); Alkaline Phosphatase 85 IU/L (40-130); Anion Gap 13.2 (5-19); Aspartate Amino Transferase 16 U/L (0-40); Blood Urea Nitrogen 17 mg/dL (8-23); Carbon Dioxide 25 mmol/L (22-29); Chloride 105 mmol/L (98-107); Globulin 3.2 g/dL (1.3-4.6); Glucose 97 mg/dL (65-115); Osmolality Calculated 289 mOsm/kg (285-295); Potassium 4.2 mmol/L (3.5-5.1); Sodium 139 mmol/L (136-145); Thyroid Stimulating Hormone 0.07 uIU/mL (0.27-4.20); Total Bilirubin 0.4 mg/dL (0.15-1.2); Total Protein 7.1 g/dL (6.6-8.7)
[2020-11-15 11:35] LABS: Free T4 Free Thyroxine 1.54 ng/dL (0.82-1.77)
== END 2020-11-15 07:43 | disposition home or self-care (01) ==
LOC: LAB 07:46
PROVIDERS: PCP Family Medicine; Visit Provider Internal Medicine Medical Oncology
DX: C34.2 Malignant neoplasm of middle lobe, bronchus or lung (principal)
CPT/HCPCS: 80053; 84439; 84443; 85025

== ENCOUNTER 2020-11-16 05:48 | Outpatient (RCR) | payer MEDICARE, OTHER, SELFPAY ==
--- NOTE | 2020-11-15 08:43 | CT_ITS ---
WS: [id number] Exam: CT chest abd pel w con* Date/Time of Exam: 11/15/2020 8:43 AM Reason For Exam: LUNG CANCER, BRAIN METS, MALIGNANT NEOPLASM LUNG LYMPH NOD DLP: 2397.[address] scans at [facility] use at least one of these dose optimization techniques: automat ed exposure control; mA and/or kV adjustment per patient size (includes targeted exams where dose is matched to clinical indication); or iterative reconstruction. Comparison to previous exam 02/04/2020. CT scan of the chest with contrast. The lungs are fully inflated. Again noted are areas of post treatment fibrosis along the anterior an d posterior aspect of the right pulmonary hilum. Stable appearing small soft tissue density identifie d along the right heart border may also represent scar tissue or atelectatic lung. The left lung is f ully expanded and clear. No pleural effusions. The airway is patent. The thoracic aorta is normal in caliber. No mediastinal or hilar lymphadenopathy. The central pulmonary arteries are clear. Mild mercedes nary artery calcifications. There is a new lytic lesion in the right lateral aspect of the T8 vertebr al body with mild pathologic compression. This is suspicious for bone metastasis. This is a new findi ng since the previous study. No other obvious bone lesions are seen. CT/CT chest abd pel w con* IMPRESSION: 1. Changes of fibrosis noted along the anterior and posterior aspects of the ri ght pulmonary hilum are stable. There is also a small soft tissue mass adjacent to the right heart border which is unchanged in appearance that may represent pulmonary scarring or atelectatic lung. 2. No lymphadenopathy in the chest and no new pulmonary lesions. 3. Lytic bone lesion involving the right lateral aspect of the T8 vertebral bod y with mild pathologic compression. This is suspicious for bone metastasis. Thi s is a new finding. CT scan of the abdomen and pelvis with IV contrast. There are scattered tiny low attenuation densities in the liver most likely rep resenting cysts. These are stable in appearance. Cavernous hemangioma noted in the left lobe of the liver unchanged. Normal-appearing gallbladder. The spleen is unremarkable. Small hiatal hernia. The pancreas appears normal. The abdomina l aorta is normal in caliber. There is a new 2 cm nodule in the right adrenal g land that may represent a metastatic lesion. Normal left adrenal gland. There a re multiple cysts in both kidneys. A prominent nonobstructing calculus is seen in the left kidney. The calculus measures about 2.3 cm at greatest dimension an d causes no obstruction. The portal vein and IVC are patent. No lymphadenopathy or free air. Small bowel loops are not dilated. Normal appendix. No significan t large bowel abnormality seen. Bilateral inguinal hernias are noted which cont ains unobstructed small bowel as well as fat. Stable appearing aneurysmal dilat ation of the right common iliac artery measuring 2.4 cm at greatest diameter. I ntact urinary bladder. No pelvic lymphadenopathy or mass. Bony structures of th e lumbar spine and pelvis appear to be intact. IMPRESSION: 1. New 2 cm right adrenal nodule that may represent a metastatic lesion. 2. No lymphadenopathy identified. 3. Bilateral inguinal hernias containing unobstructed small bowel. 4. Cavernous hemangioma in the left lobe of the liver unchanged. 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 Nonobstructing prominent left renal calculus. Multiple bilateral renal cysts.
[2020-11-15] MEDS: iohexol 300 mg/mL 50 mL Btl PO (09:04)
[2020-11-15] MEDS: iohexol 300 mg/mL 100 mL Btl IV (10:15)
--- NOTE | 2020-11-15 12:30 | N.ONRAD NP_ITS ---
Radiation Oncology Consult Patient: Logan Maynard MR#: [id number] : 1950 Attending Physician: Rafy Ta M.D. Date of Service: 11/15/2020 Logan Maynard was seen in consultation this morning for evaluation regarding cranial radiotherapy for the management of his metastatic lung cancer. Briefly, the patient was initially diagnosed with an adenocarcinoma of the lung following a bronchoscopy performed in November 2018 of a mass in the right middle lobe of the lung. The right middle lobe lung mass was identified from a PET CT ordered in September 2018 during the work-up of a locally advanced basal cell carcinoma of the right frontal scalp. An MRI of the brain obtained in November 2018 revealed a 1.5 cm x 1.2 cm x 1.4 cm right frontal lobe lesion. Stereotactic radiosurgery was delivered to the metastatic deposit in December 2018. The neglected scalp basal cell carcinoma was concomitantly treated pleating in January 2019. He received chemoimmunotherapy (carboplatin and pemetrexed) with a significant response to treatment. Consolidative radiotherapy was delivered completing in October 2019. He has continued routinely scheduled follow-up appointments with Gerald Brower M.D. A recent MR of the brain performed on November 15, 2020 identified multiple new sub-centimeter enhancing supratentorial lesions (4 mm right frontoparietal white matter deposit, 7 mm leptomeningeal lesion in the right parietal lobe, 4 mm right mesial temporal lobe deposit, 4.2 mm left cerebellar lesion, and a small left mid temporal horn metastatic deposit), a single enhancing posterior fossa lesion in the left cerebellum and no significant change in the previously treated right posterior frontal metastatic site. The patient presents for consultation to discuss cranial radiotherapy. she presented on October 25, 2020 to the medical oncology office with worsening scalp nodules and headache. 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 I have been asked to evaluate the patient for cranial radiotherapy. The patient's past medical history is significant for BPH, CAD, GERD, hypertension, lung cancer and non-melanomatous skin to cancer. His past surgical interventions include cardiac surgery (age 2), foot surgery, Port-A-Cath placement, and colectomy. I have reviewed the patient's medication profile which is available in the electronic medical record. He reported a drug allergy to sulfa. The patient was unaccompanied to this consultation. He described a prior tobacco habit and denied drinking alcoholic beverages. On review of systems, he did not report any constitutional complaints including fevers of unknown origin or unintentional weight loss. He did not detail any head neck complaints including diplopia, tinnitus, epistaxis, or dysphagia. He disavowed any enlarged lymph nodes of the neck, armpit, or groin. He did not disclose any cardiopulmonary symptoms such as angina or palpitations. On gastrointestinal review, he reported nausea. There were no genitourinary complaints such as dysuria or hematuria. He did not relate any musculoskeletal complaints including bone pain or muscle weakness nor any skin complaints achy rash. He did not describe headaches, paresthesias or seizures, On physical examination, the patient has an ECOG performance status of 2. His height was 5 ft 10 in tall and he weighed 197 lbs. The temperature was 97.3???F. The blood pressure was 168/88 mmHg. The pulse was 87 bpm and the respiratory rate of was 16. The forehead demonstrated a flap measuring 6 cm in width and 13 cm in length. Ophthalmoscopy identified bilateral red reflexes without papilledema. The oral cavity had moist mucous membranes and no oropharyngeal exudate was present. Dentures were present. There was no cervical adenopathy or thyromegaly. Normal fremitus was noted with resonance to percussion elicited. Bronchial breath sounds were auscultated in the posterior lung garcia. Cardiac sounds were regular in rate and rhythm. No JVD noted. The abdomen had active bowel sounds. No tenderness to palpation. No evidence of organomegaly. No muscle weakness upon testing. No tenderness to deep palpation along the axial skeleton. Cranial nerves II through XII were intact. There were no sensory deficits no sensory deficits. Muscle strength was 5/5. Gait was normal. Reflex testing was unremarkable. In summary, the patient was initially diagnosed with an adenocarcinoma of the lung following a bronchoscopy performed in November 2018 of a mass in the right middle lobe of the lung. The right middle lobe lung mass was identified from a PET CT ordered in September 2018 during the work-up of a locally advanced basal cell carcinoma of the right frontal scalp. An MRI of the brain obtained in November 2018 revealed a 1.5 cm x 1.2 cm x 1.4 cm right frontal lobe lesion. Stereotactic radiosurgery was delivered to the metastatic deposit in December 2018. The neglected scalp basal cell carcinoma was concomitantly treated pleating in January 2019. He received chemoimmunotherapy (carboplatin and pemetrexed) with a significant response to treatment. Consolidative radiotherapy was delivered completing in October 2019. He has continued routinely scheduled follow-up appointments with Gerald Brower M.D. A recent MR of the brain performed on November 15, 2020 identified multiple new sub-centimeter enhancing supratentorial lesions (4 mm right fronto-parietal white matter deposit, 7 mm leptomeningeal lesion in the right parietal lobe, 4 mm right mesial temporal lobe deposit, 4.2 mm left cerebellar lesion, and a small left mid temporal horn metastatic deposit), a single enhancing posterior fossa lesion in the left cerebellum and no significant change in the previously treated right posterior frontal metastatic site. The patient presents for consultation to discuss cranial radiotherapy. I reviewed with the patient the role of radiotherapy in the management of cranial metastases (SRS versus WBRT). I would recommend whole brain radiotherapy to sterilize subclinical metastatic disease and re-evaluate for stereotactic radiosurgery based upon repeat imaging. The potential toxicities of WBRT were reviewed. I anticipate a 2-week course of radiotherapy that will be administered following CT radiotherapy planning. The patient verbalized understanding and would like to proceed with whole brain radiotherapy. Signed by: Dr. Rafy Ta 11/15/2020 12:28:51 PM
--- NOTE | 2020-11-15 15:17 | ONC FU_ITS ---
Dr. Brower Patient Follow-Up Note Patient: Logan Maynard < Unit #: [id number]: 1950 Dicatated By: Gerald Brower M.D.Date of Visit:Nov 15, 2020 Onc Med Follow-up/Prog Note Chief Complaint: Lung cancer/basal cell skin cancer. History of Present Illness: This is a 70 year-old man with stage IV non-small cell lung cancer and a locally advanced basal cell carcinoma involving the right frontal scalp. He had initially presented to Dr. Sanchez in July with an enlarging right frontal scalp skin lesion. He was referred to Dr. Pugh and determined on biopsy to have basal cell carcinoma. His subsequent evaluation included a head CT on 09/24/2018 which showed a lobulated right frontal scalp mass measuring 4.5 x 4.2 x 0.7 cm with invasion of the right frontal bone cortex. There was abnormal attenuation noted in the right frontal lobe measuring 4.0 x 3.2 cm. Metastatic or primary brain tumor was suspected, and MRI was recommended. Further evaluation with PET/CT on 10/04/2018 reportedly showed uptake in a right middle lobe lung mass and in right paratracheal and right hilar lymph nodes. There was also uptake in cervical lymph nodes bilaterally. Neck CT on 10/20/2018 showed multiple enlarged pathologic appearing lower cervical level III and level IV lymph nodes as well as enlarged supraclavicular and anterior mediastinal lymph nodes. These corresponded to FDG avid lymph nodes on the PET/CT. 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 The tumor cells showed strong cytoplasmic staining for CK-HMW, moderately strong cytoplasmic staining for CK-CAM 5.2, and strong nuclear positivity for TTF-1. He was then seen by Dr. Harding in [place] for resection of the basal cell carcinoma and he subsequently had pulmonary consultation there with Dr. Brandon Doyle. Repeat PET/CT on 11/13/2018 showed similar findings with FDG avid right middle lobe lung mass measuring 3.6 x 3 cm and hypermetabolic ruba disease which included bilateral lower cervical chain, supraclavicular, mediastinal, and right hilar lymph nodes. There was a questionable tiny focus of hypermetabolic activity in the liver. The irregular skin lesion on the forehead was hypermetabolic and showed evidence of calvarial invasion. Chest CT on 11/17/2018 showed right middle lobe mass measuring 4.1 cm with enlarged mediastinal, right hilar, and supraclavicular lymph nodes. Bilateral subcentimeter pulmonary nodules were too small to characterize. On 11/28/2018 he underwent bronchoscopy with EBUS/FNA of the right middle lobe mass and station 11 R lymph node. The lymph node biopsy was nondiagnostic. Biopsy from the right middle lobe lung mass was positive for adenocarcinoma. It was noted that a very limited amount of tumor was present. PD-L1 testing was going to be attempted, but there was insufficient material present for additional studies. Following the procedure he developed urinary retention, which ultimately did improve with tamsulosin. However, in the meantime, he also developed hypertension. He was admitted to the hospital on 12/09/2017, and his cardiac evaluation at that time was negative for any acute ischemia. He returned to the emergency room one week later with new onset of dizziness and vomiting. CT abdomen/pelvis showed persistent right middle lobe lung mass, measuring about 3 cm. There was partial atelectasis of the right middle lobe and there was additional bilateral lower lobe subsegmental atelectasis and/or interstitial pneumonia. Head CT showed persistent and increased degree of vasogenic edema of the right frontal lobe suggestive of underlying neoplastic process. Irregular marginated frontal scalp lesion showed increased degree of subtle outer table cortical erosion of the underlying right frontal calvarium. He was admitted to the hospital and placed on IV dexamethasone and empiric IV antibiotic coverage with Levaquin. Further evaluation with brain MRI on 12/18/2018 showed a right frontal lobe enhancing neoplastic lesion measuring 1.5 x 1.2 x 1.4 cm. The appearance was suggestive of a solitary metastatic lesion. There was associated vasogenic white matter edema. His symptoms had improved with steroid therapy, and he was discharged home on dexamethasone 4 mg twice a day. He also continued antibiotic coverage with Levaquin. He was then seen by Dr. Munguia and he began electron-beam radiation to the scalp lesion on 12/22/2018. On 12/25/2018 he underwent SRS to the metastatic lesion in the brain, total dose 2000 cGy. He then continued with electron-beam radiation, and he completed treatment to the skin lesion on 01/16/2019, total dose 5500 cGy. In the meantime, I had requested a next generation sequencing study which showed low PD-L1 expression, reported at 10% to 22C3 by IHC. The ALK and ROS 1 gene rearrangements were not detected, and a BRAF mutation was not detected. 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 His other medical illnesses include hypertension, coronary artery disease, hiatal hernia/GERD, and benign prostatic hypertrophy. He has a history of smoking for 27 years, in the range of 2-3 packs of cigarettes daily. He quit smoking in 1992. He currently does not drink alcohol, though he did have significant alcohol use in the past. INTERIM HISTORY: On 02/16/2019 he began cycle 1 of systemic therapy with carboplatin/pemetrexed chemotherapy in combination with pembrolizumab. He tolerated it without significant toxicity. He continued with cycle 2 on 03/11/2019. His CBC at day 8 showed a decrease in his granulocyte count to 900. It resolved uneventfully with Neupogen. He continued with cycle 3 on 03/31/2019 and with cycle 4 on 04/21/2019, both administered with Neulasta prophylactically. Restaging PET/CT on 05/16/2019 showed resolution of the basal cell carcinoma of the right forehead. There was also resolution of bilateral jugulodigastric and supraclavicular lymph nodes compared to the prior study from September 2018. Superior mediastinal, right paratracheal, right parabronchial, and right hilar territory lymph nodes which previously had been prominent were noted to be subcentimeter in size with FDG uptake similar to mediastinal background. A 1.5 cm right paratracheal index lymph node was no longer identified. The 2.3 x 2.1 cm right lung mass was noted to be FDG negative, consistent with a complete response to therapy. He then continued on to maintenance therapy with pembrolizumab 200 mg by IV infusion every 3 weeks. He completed cycle 1 on 05/27/2019 and cycle 2 on 06/16/2019. Restaging MRI of the head on 2018 showed marginal decrease in the size of the right posterior frontal metastatic lesion compared to the March 2019 study. There was decreased associated white matter edema. There were no new metastatic lesions identified. However, following his cycle 2 pembrolizumab, he developed significant musculoskeletal pain, particularly in the upper extremities. The pain initially improved on prednisone 10 mg twice a day, but they worsened again when the prednisone dosage was tapered down. He opted not to take any further treatment. However, with PET/CT evidence of complete response to treatment, Dr. Munguia had recommended consolidation radiation to the right lung. He ultimately did agree to the treatment, which he completed on 10/26/2019 to a total dose of 6000 cGy. He was then followed on observation/expectant management. As of his follow-up visit in January 2020 he appeared stable clinically but he then failed to return for further follow-up due to the coronavirus pandemic. During that time, he had been seen in [place] for additional surgery, and in May he underwent excision of the remaining lesion in the right frontal calvarium with skin grafting. I did not receive any of those records. He also had seen an concession stand attendant for eye pain. He was found to have cataracts and he apparently also had evidence of macular degeneration. He has now undergone cataract excisions. His restaging brain MRI on 11/08/2020 showed multiple new subcentimeter enhancing supratentorial metastatic lesions, estimated at 4 in number. These ranged in size from 4 to 7 mm. Also noted was a new 4.2 mm peripheral enhancing left cerebellar metastatic lesion and there was additional tiny suspected metastatic lesion along the left mid temporal horn. The previously described right posterior frontal lesion was not significantly changed. Restaging CT scans of the chest, abdomen, and pelvis on 11/15/2020 showed a new 2 cm right adrenal nodule which appeared suspicious for a metastatic lesion. A lytic bone lesion involve the right lateral aspect of T8 vertebral body showed mild pathologic compression and also was suspicious for metastatic disease. Also noted were bilateral inguinal hernias containing unobstructed small bowel. He is seen for a follow-up visit. He has been feeling pretty good generally. He has been doing some walking and he does light work. His ECOG score is 1. Appetite has been okay. His weight is up a few pounds. He does not have fever or night sweats. He does not complain of shortness of breath or cough, and he has not been having chest pain. For the past month he has been having stomach problems, mainly abdominal pain and nausea. He also had been having intestinal gas and diarrhea, but that has improved. Bladder function has been okay. He reports having tightness around the lower abdomen/groin area on both sides and in both legs after activity. He is not having any other joint or bone pain. He is not having headache. He has just a little bit of dizziness. He has no focal neurologic symptoms. He says his neuropathy has improved. Medications: Levothyroxine Sodium 1 Tablet (of 150 mcg) Oral daily Allergies: Sulfonylureas Review of Systems: Constitutional - Has energy has been pretty good. He is doing some walking. His appetite has been okay. His weight is up a few pounds. He has not had fever or night sweats. ECOG score is 1, ENMT - He has a little sinus drainage. His gums have been a little sore. No sore throat or difficulty swallowing, Hematologic/Lymphatic - No abnormal bruising or bleeding, Respiratory - No shortness of breath. No cough. No pleuritic pain or hemoptysis, Cardiovascular - No angina pain. No palpitations, Gastrointestinal - He has had stomach problems, mainly nausea and abdominal pain. He has had a little heartburn. No diarrhea or constipation. He had been having a lot of intestinal gas and diarrhea, but that has improved. No blood in the stool or black stools, Genitourinary (M) - No dysuria or hematuria. No urinary frequency. No urgency or incontinence, Musculoskeletal - He reports having tightness in the lower abdomen/groin area and in both legs after activity. He has no other joint or bone pain, Integumentary - No skin rash, Neurologic - No headache. He has a little bit of dizziness. His neuropathy symptoms have improved, Psychiatric - Recently he has had some anxiety. Lately has had difficulty sleeping, mainly due to blood pressure problems. Vital Signs: Performed on Nov 15, 2020 11:41 Height - 70.00 in Weight - 196.6 lbs Temperature - 97.3 F Pulse - 87 Respiration - 16 BP - 168/88 mm(hg) (HIGH) O2 Sat - 100 % Pain - 0 Performed on Nov 15, 2020 11:41 BMI - 28.209 kg/m2 (HIGH) Performed on Nov 15, 2020 10:58 Height - 70.00 in Weight - 196.6 lbs (HIGH) BSA - 2.07 sq.m BMI - 28.21 Temperature - 97.3 F (LOW) Pulse - 87 /min Respiration - 16 /min BP - 168/88 mm(hg) (HIGH) O2 Sat - 100 % Pain - 0 Physical Examination: Constitutional - He looks pretty good generally. He has a new skin graft over the right scalp area, Eyes - Sclerae nonicteric. Conjunctivae clear, ENMT - No lesions noted in the oral cavity, Hematologic/Lymphatic - No cervical, clavicular, or axillary adenopathy, Respiratory - Lungs are clear with good air movement bilaterally, Cardiovascular - Heart rhythm is regular. There is no murmur, gallop, or rub noted, Abdomen - Soft. Liver and spleen are not enlarged. There is no abdominal mass or ascites noted and there is no inguinal adenopathy, Extremities - No edema, Neurologic - No focal neurologic deficits noted. Lab/Imaging: Test performed on Nov 15, 2020 07:51 TSH 0.07 uU/mL Glucose 97 mg/dL BUN 17 mg/dL Creatinine 1.1 mg/dL Cr Clearance (Est) 76.5700 mL/min Sodium 139 mmol/L Potassium 4.2 mmol/L Chloride 105 mmol/L CO2 25 mmol/L Calcium 9.0 mg/dL Protein, Total 7.1 g/dL Albumin 3.9 g/dL Globulin 3.2 g/dL Bilirubin, Total 0.4 mg/dL Alkaline Phosphatase 85 IU/L AST (SGOT) 16 IU/L ALT (SGPT) 10 IU/L WBC 3.9 10^9/L RBC 4.64 10^12/L HGB 13.5 g/dL HCT 42.0 % MCV 90.5 fl MCH 29.1 pg MCHC 32.1 g/dL RDW 12.4 % Platelet Count 203 10^9/L MPV 11.2 fL Neutrophils (Gran) 2.41 10^9/L Lymphocytes 0.8 10^9/L Monocytes 0.6 10^9/L Eosinophils 0.1 10^9/L Basophils 0.0 10^9/L Manual Lymphocytes 19.8 % Manual Monocytes 15.3 % Manual Eosinophils 2.5 % Manual Basophils 0.8 % Impression: 1. Patient with biopsy-proven non-small cell carcinoma involving the middle lobe of the right lung, stage IV ( T2a, N3, M1b). There was CT evidence of multiple sites of lymph node involvement with biopsy proven involvement in a tracheoesophageal lymph node. There was some discrepancy in the reported histology of the 2 biopsies, but this was likely related to the small sample size of the lung biopsy. 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 The PD-L1 expression was reported low at 10%. 2. There was MRI evidence of solitary brain metastasis involving the right frontal lobe. 3. He also has a locally advanced basal cell skin carcinoma involving the right frontal scalp. His other medical illnesses include: 4. Hypertension. 5. Coronary artery disease with previous myocardial infarction and angioplasty/stent placement. 6. Hiatal hernia/GERD. 7. Benign prostatic hypertrophy with recent urinary retention. His symptoms improved on steroid therapy. He was then seen Dr. Munguia, and he underwent SRS to the brain metastasis, completed on 12/25/2018 3 total dose of 2000 cGy, and he completed electron beam radiation to the basal cell carcinoma, completed on 01/16/2019 to a total dose of 5500 cGy. On 02/16/2019 he began cycle 1 of systemic therapy with carboplatin/pemetrexed chemotherapy in combination with pembrolizumab. He tolerated it very well. He continued with cycle 2 on 03/11/2019. With that cycle he did have more fatigue, and he developed moderately severe neutropenia. He recovered uneventfully with Neupogen. He was given Neulasta prophylactically with cycle 3 on 03/31/2019 and was cycle 4 on 04/22/2019. His blood counts remained adequate, but he did have multiple other side effects, particularly after his 4th cycle. His restaging PET/CT on 05/16/2019 showed a very good clinical response to the treatment. His treatment was then transitioned to maintenance pembrolizumab, cycle 1 on 05/27/2019. He continued with cycle 2 on 06/16/2019. That treatment was complicated by significant musculoskeletal pain, which had initially improved with steroid therapy. During subsequent followup he had recurrence of the joint pain as his prednisone was tapered. His activity tolerance has been variable. Dr. Munguia had recommended consolidation radiation, as the known areas of involvement in the chest/neck were able to be encompassed within a radiation field. Ultimately he did agree to the treatment, which he completed on 10/26/2019 to a total dose of 6000 cGy. During follow-up he required treatment for nephrolithiasis. He also was found to have hypothyroidism, though his TSH level now is low. His restaging head MRI shows multiple new, small metastatic lesions in the brain. His restaging CT scans show suspected new metastatic involvement in the right adrenal gland. Plan: He is seeing Dr. Ta today in regard to the brain metastasis, and anticipate that he will be undergoing palliative whole brain radiation. I will see him again when the radiation is completed to discuss further management of the lung cancer. Signed By: Gerald Brower M.D. <<Signature on File>>
--- NOTE | 2020-11-16 | CT_ITS ---
Radiation Therapy Planning CT images; total exam DLP: 293.55 mGy-cm MTDD
== END 2020-11-17 23:59 | disposition home or self-care (01) ==
LOC: ONCMED 05:48
PROVIDERS: PCP Family Medicine; Visit Provider Internal Medicine Medical Oncology
DX: Z51.0 Encounter for antineoplastic radiation therapy (principal); C34.2 Malignant neoplasm of middle lobe, bronchus or lung; C79.31 Secondary malignant neoplasm of brain; C77.8 Secondary and unspecified malignant neoplasm of lymph nodes of multiple regions; Z85.828 Personal history of other malignant neoplasm of skin; R93.5 Abnormal findings on diagnostic imaging of other abdominal regions, including retroperitoneum; K40.20 Bilateral inguinal hernia, without obstruction or gangrene, not specified as recurrent; E03.9 Hypothyroidism, unspecified; I10 Essential (primary) hypertension; I25.10 Atherosclerotic heart disease of native coronary artery without angina pectoris; K21.9 Gastro-esophageal reflux disease without esophagitis; I25.2 Old myocardial infarction; K44.9 Diaphragmatic hernia without obstruction or gangrene; N40.1 Benign prostatic hyperplasia with lower urinary tract symptoms; R33.8 Other retention of urine; Z92.3 Personal history of irradiation; Z87.442 Personal history of urinary calculi; Z92.21 Personal history of antineoplastic chemotherapy
CPT/HCPCS: 71260; 74177; 77290; 77295; 77300; 77334; 80053; 84439; 84443; 85025; 99214; Q9967

== ENCOUNTER 2020-12-02 05:41 | Outpatient (RCR) | payer MEDICARE, OTHER, SELFPAY ==
--- NOTE | 2020-11-21 11:25 | ONCRAD TMN_ITS ---
Radiation Oncology Treatment Management Note Patient Name: Logan Maynard Date of : 1950 Date of Service: 11/21/2020 Attending Physician: Rafy Ta M.D. Logan Maynard is a 70 year-old white male diagnosed with recurrent brain metastases. The patient has received 3 Gy of a prescribed 30 Cronin with a 3-dimensional conformal radiotherapy plan utilizing a half beam block treatment technique with opposed lateral portal garcia. Upon review of systems, he denied any neurological complaints. On physical examination, the patient weighed 199 lbs. His temperature was 98.9 ???F with a blood pressure of 167/83 mmHg. His pulse was 68 bpm and his respiratory rate was 20. Cranial nerves were intact. There was no thrush in the oropharynx. Continue cranial fossa radiotherapy as prescribed. Signed by: Dr. Rafy Ta 11/21/2020 11:24:01 AM
--- NOTE | 2020-11-28 11:13 | ONCRAD TMN_ITS ---
Radiation Oncology Treatment Management Note Patient Name: Logan Maynard Date of : 1950 Date of Service: 11/28/2020 Attending Physician: Rafy Ta M.D. Logan Maynard is a 70 year-old white male diagnosed with recurrent brain metastases. The patient has received 18 Gy of a prescribed 30 Cronin with a 3-dimensional conformal radiotherapy plan utilizing a half beam block treatment technique with opposed lateral portal garcia. Upon review of systems, he denied any neurological complaints. On physical examination, the patient weighed 196 lbs. His temperature was 99.2 ???F with a blood pressure of 131/80 mmHg. His pulse was 78 bpm and his respiratory rate was 18. Cranial nerves were intact. No muscle weakness present. Continue cranial fossa radiotherapy as planned. Signed by: Dr. Rafy Ta 11/28/2020 11:11:44 AM
== END 2020-12-18 23:59 | disposition home or self-care (01) ==
LOC: ONCMED 05:41
PROVIDERS: PCP Family Medicine; Visit Provider Radiology Radiation Oncology
DX: Z51.0 Encounter for antineoplastic radiation therapy (principal); C34.2 Malignant neoplasm of middle lobe, bronchus or lung; C77.8 Secondary and unspecified malignant neoplasm of lymph nodes of multiple regions; C79.31 Secondary malignant neoplasm of brain
CPT/HCPCS: 77280; 77336; 77412; 77417

== ENCOUNTER 2021-02-09 23:25 | Observation (INO) | payer MEDICARE, OTHER, SELFPAY ==
[2021-02-09 23:30] VITALS: BP 178/112; PULSE 73; RESP 14; TEMP 36.3; O2SAT 97; BMI 25.4
--- NOTE | 2021-02-09 23:40 | CTR_ITS ---
PROCEDURE INFORMATION: Exam: CT Head Without Contrast Exam date and time: 02/09/2021 11:41 PM Age: 70 years old Clinical indication: Injury or trauma; Blunt trauma (contusions or hematomas); Prior surgery; Surgery type: Scalp; Patient HX: Fall. Small hematoma to forehead with lac to right temporal region. History of brain mets. ; Additional info: Fall, known brain mets, dizziness TECHNIQUE: Imaging protocol: Computed tomography of the head without contrast. Radiation optimization: All CT scans at this facility use at least one of these dose optimization techniques: automated exposure control; mA and/or kV adjustment per patient size (includes targeted exams where dose is matched to clinical indication); or iterative reconstruction. COMPARISON: 1. CT head wo con* [id number] 2019-07-01 10:[address] [place] contrast [id number] 2019-05-08 06:53 RADIATION DOSE METRICS: Total DLP (mGy-cm): 887.45 FINDINGS: Brain: Couple vague areas of low attenuation within the brain, question chronic small vessel disease and or known metastases. No midline shift, fluid collection, or evidence of acute hemorrhage. Cerebral ventricles: No ventriculomegaly. Bones/joints: Larger, lytic lesion involving the right of midline frontal bone, evidence of an enlarging osseous metastases, measures 2 cm. Almost extends through and through the right frontal bone. Paranasal sinuses: Mild scattered paranasal sinus mucosal thickening and secretions. Mastoid air cells: Visualized mastoid air cells are well aerated. Soft tissues: Right lateral periorbital contusion and small hematoma. CT/CT head wo con* [id number] IMPRESSION: 1. Right lateral periorbital contusion and small hematoma. 2. Larger, lytic lesion involving the right of midline frontal bone, evidence of an enlarging osseous metastases, measures 2 cm. Almost extends through and through the right frontal bone. 3. Couple vague areas of low attenuation within the brain, question chronic small vessel disease and or known metastases. Radiation Dose CTDIVOL = (mGy): DLP = 887.45 (mGy-cm)
--- NOTE | 2021-02-09 23:55 | ED_ITS ---
HPI - Fall General: Chief Complaint: Fall Stated Complaint: fall head and face lac Time Seen by Provider: 02/09/21 23:26 Source: patient and EMS Mode of arrival: EMS History of Present Illness: HPI Narrative: 70-year-old male patient presents to the emergency room by EMS due to fall he sustained at home. He reports currently in radiation treatment for metastatic brain cancer, has experienced increased dizziness at home x2 weeks. He reports dizziness became worse tonight causing him to fall. He states hit his head on a easel during his fall -he became dizzy and sustained a fall. He reports dizziness has become worse since radiation treatment, spot treatment to the brain x2 to 3 weeks. He denies neck pain, back pain. He reports nausea that has worsened past several weeks. He also complains of right upper quadrant pain that has been chronic for several months. He reports has adrenal tumor, history of lung cancer. He lives alone, EMS reports he had difficulty with ambulation upon their ar rival. EMS reports he is not steady on his feet. MD complaint: fall Onset (ago): minute(s) (30) Fall from: standing Fall witnessed: no Place fall occurred: home Loss of consciousness: Unsure Prolonged down time: no Symptoms prior to fall: dizziness Location of injury: head and face Associated symptoms-after fall: Reports abdominal pain, difficulty walking and other (dizziness); Denies chest pain, headache(s) or neck pain Review of Systems General: Reports: 10 or more systems reviewed and unremarkable except in HPI and below Const: Reports: change in appetite, fatigue and malaise; Denies: fever(s), chills or diaphoresis Eyes: Denies: blurry vision or eye redness ENMT: Reports: disequilibrium; Denies: throat pain, dental pain, nasal discharge or nasal congestion Card: Denies: chest pain, palpitations or irregular heart rhythm Resp: Denies: dyspnea, productive cough, non-productive cough or wheezing GI: Reports: abdominal pain and nausea; Denies: vomiting, diarrhea or constipation : Denies: difficulty urinating, dysuria or urinary urgency Musc: Denies: neck pain, back pain or joint pain Skin/Breast: Denies: rash or pruritus Neuro: Reports: difficulty walking, dizziness and difficulty communicating thoughts (upon exam); Denies: headache(s) Psych: Denies: anxiety, depression or change in appetite Az/Lymph: Denies: easy bruising PFSH ED PFSH: Family History Mother Stroke CAD (coronary artery disease) Father , AT AGE 85 CAD (coronary artery disease) RENAL FAILURE Social History Smoking and tobacco status: former smoker Alcohol intake: never Adopted: No Caregiver/support person: No Marital status: Single Current occupational status: retired Physical Exam Const: COMMON NORMALS: no acute distress, patient oriented x3 and alert GE NERAL APPEARANCE: cooperative, comfortable and well kempt NUTRITIONAL JALYN EARANCE: thin ORIENTATION/CONSCIOUSNESS: Yes awake, Yes oriented to person, Yes oriented to place and Yes oriented to time HENMT: COMMON NORMALS: normocephalic (large scar to the parietal, superior scalp), hearing grossly normal bilaterally, external ears normal, EAC's normal, Normal external nose present, Normal nasal mucous membranes and turbinates present, moist oral mucous membranes and oropharynx normal HEAD & SCALP: contusion right temporal ; no Acrocyanosis present, no palpable skull fracture and no scalp tenderness FACE & SINUS: face symmetric; no erythema, no edema and no Acrocyanosis present FACE & SINUS IMAGES: 1. 2 horizontal superficial abrasions, bleeding, 1 cm parallel to each other NOSE: Normal external nose present, Normal nares present and Normal nasal mucous membranes and turbinates present EXTERNAL EAR: Yes external ears normal EXTERNAL AUDITORY CANAL: EAC's normal MOUTH: moist mucous membranes abnormal Details: cracked THROAT: posterior oropharynx normal, tonsils normal and uvula midline Eye: COMMON NORMALS: Equal, round and reactive pupils present, EOMs intact bilaterally and conjunctivae normal GENERAL EYE: appearance normal, both eyes and all related structures PERIORBITAL: periorbital findings normal EYELID: eyelids normal CONJUNCTIVA: Yes conjunctivae normal PUPIL: Yes Equal, round and reactive pupils present, Yes pupil size - right Right pupil size (mm): 2 and Yes pupil size - left Left pupil size (mm): 2 Neck/C-Spine: COMMON NORMALS: full ROM and no lymphadenopathy GENERAL: Yes normal visual inspection and Yes trachea midline CERVICAL SPINE: Yes cervical ROM normal Lymph: LYMPHATIC: no lymphadenopathy noted Chest: COMMONS NORMALS: normal inspection of the chest and normal palpation of entire chest wall Resp: COMMON NORMALS: normal respiratory effort, No retractions, No use of accessory muscles and clear to auscultation bilaterally EFFORT & INSPECTION: Yes able to speak in complete sentences AUSCULTATION: clear to auscultation bilaterally Cardio: COMMON NORMALS: regular rate, regular rhythm, S1 normal heart sound present, S2 normal heart sound present and Peripheral pulses 2+ throughout RATE: regular rate RHYTHM: regular rhythm HEART SOUNDS: S1 normal heart sound present and S2 normal heart sound present PERIPHERAL PULSES: Peripheral pulses 2+ throughout GI: COMMON NORMALS: Normal to inspection, nondistended, normoactive bowel sounds present and Soft to palpation INSPECTION: Yes normal to inspection, No abdominal wall ecchymosis, No abdominal distension, No central obesity and No visible herniation PALPATION: Yes Soft to palpation and Yes Tenderness to palpation present (GI) Details: RUQ : COMMON NORMALS: Yes no CVA tenderness BLADDER/KIDNEY EXAM: Yes no CVA tenderness Back/Pelvis: COMMON NORMALS: no CVA tenderness and thoracic and lumbar spine normal to inspection Extremity: COMMON NORMALS: normal to inspection, full ROM, capillary refill normal and no pedal edema GENERAL: Yes normal exam except as noted Neuro: TIARRA COMA SCALE: document GCS findings [place] coma scale eye opening: Spontaneous [place] coma scale verbal response: Orientated [place] coma scale motor response: Obey commands [place] coma scale total score: 15 COMMON NORMALS: patient oriented x3 and no focal motor deficits SENSO RIUM/ORIENTATION: Yes alert, Yes oriented to person, Yes oriented to place and Yes oriented to time SPEECH: speech normal MOTOR EXAM: no tremor noted Psych: COMMON NORMALS: mental status grossly normal, Normal thought process present and cooperative APPEARANCE: Yes well kempt ACTIVITY/MOTOR BEHAVIOR: Yes appropriate eye contact THOUGHT PROCESS: Normal thought process present Skin: COMMON NORMALS: no rashes or lesions noted, turgor normal, no petechiae and no mottling GENERAL SKIN EXAM: no rashes or lesions noted and turgor normal TRAUMA: laceration (2 cm) linear (rt cheek) Procedures Laceration Laceration 1: Site: face (rt cheek) Side (If applicable): right Size (cm): 2 Description: linear Depth: simple, single layer Local Anesthetic: lidocaine 1% and with epi Amount of anesthesia used (mL): 4 Pre-repair: wound explored, irrigated extensively, deep structures intact and extensive debridement Skin layer closed with: nylon Size (cm): 5-0 Number of sutures: 3 Technique: simple, interrupted Course ED course: 70-year-old male patient presents to the emergency department with increased dizziness with sustained fall that occurred at home. He sustained laceration to the right upper cheek with abrasions to the anterior nose. He also has a scalp skin tear. Laceration of the right cheek was repaired. He has known metastatic brain disease, [facility] larger lytic lesion involving the right of the midline frontal bone evidence of enlarging osseous metastases, measuring 2 cm, almost extends through and through the right frontal bone. Couple vague areas of low attenuation within the brain, question of note chronic small vessel disease or known metastases -MRI brain completed 11/08/2020 revealed new subcentimeters enhancing some anterior oral metastatic lesions, single enhancing posterior fossa lesion in the left cerebellum, patient has history of lung cancer with chemotherapy treatment. Upon arrival, EMS stated patient did not reveal steady gait and was at risk for falling. Patient reports does not utilize a walker in his home. He lives alone, no family lives near him. His gait here in the ED was unsteady, fall risk high. EKG series without acute findings, 2-hour delta troponin -0.13. Patient did complain of nausea here in the ED with 8 mg of Zofran administered. He did report nausea had improved. Lipase was negative, lactic acid 0.8, CT of the abdomen pelvis with IV contrast revealed larger right adrenal lesion measuring now 2.4 cm. Known right common iliac artery with dilatation as previous described January 2020. Chest x-ray did revealed increased density noted in the right middle lobe/mediastinal, question lesion versus infiltrate/pneumonia. IV Levaquin administered here in the ED. Lactic acid again 0.8. CTA chest abdomen and pelvis completed November 15, 2020 did not reveal adenopathy of the chest. Spoke with the hospitalist with my concern of patient's progressive dizziness and weakness. Do not feel patient is safe in his home without care from other individuals. He has risk for falling. Agrees to see patient in the ED for admission. Patient's blood pressure was also noted to be elevated during his stay. Hydralazine was initiated. Consultations: Consultation #1: Dr Hampton, hospitalist -discussed with Dr. Hampton, patient's weakness and complaints of dizziness along with nausea, he remains unsteady on his feet. History of present illness, CT of head and abdominal/pelvis findings discussed. Will see patient in the ED for admission. Time: 02:45 Vital Signs: Vital signs: Vital Signs Temperature 97.4 F L 02/09/21 23:30 Pulse Rate 78 02/10/21 02:30 Respiratory Rate 16 02/10/21 02:30 Blood Pressure 160/104 02/10/21 02:30 Pulse Oximetry 95 02/10/21 02:30 MDM - Fall Lab Data: Labs: Lab Results 02/10/21 02/10/21 02/10/21 Range/Units 00:39 00:39 00:39 WBC 3.6 L (4.0-10.0) 10^3/ uL RBC 4.48 (4.1-5.3) 10^6/u L Hgb 13.4 (11.7-16.6) g/dL Hct 42.3 (42.0-52.0) % MCV 94.4 H (80-94) fL MCH 29.9 (28.0-34.0) pg MCHC 31.7 (30.0-36.0) g/dL RDW 15.1 (12.1-15.1) % Plt Count 143 (130-400) 10^3/c mm MPV 11.6 H (7.4-10.4) fL Neut % (Auto) 63.6 % Lymph % (Auto) 22.8 % Leake % (Auto) 9.7 % Eos % (Auto) 2.8 % Baso % (Auto) 0.8 % Neut # (Auto) 2.28 (1.8-7.7) 10^3/u L Lymph # (Auto) 0.8 (0.8-4.8) 10^3/u L Leake # (Auto) 0.4 (0.2-0.9) 10^3/u L Eos # (Auto) 0.1 (0.0-0.8) 10^3/u L Baso # (Auto) 0.0 (0.0-0.1) 10^3/u L Nucleated RBC % (a uto) 0 % Nucleated RBCs # 0.0 /100WBC Sodium 138 (136-145) mmol/L Potassium 3.9 (3.5-5.1) mmol/L Chloride 101 (98-107) mmol/L Carbon Dioxide 24 (22-29) mmol/L Anion Gap 16.9 (5-19) BUN 15 (8-23) mg/dL Creatinine 1.3 H (0.7-1.2) mg/dL GFR Calculation Not Reportable Glucose 88 (65-115) mg/dL Calculated Osmolal ity 286 (285-295) mOsm/k g Lactate (0.5-2.2) mmol/L Calcium 8.8 (8.5-10.5) mg/dL Total Bilirubin 0.5 (0.15-1.2) mg/dL AST 33 (0-40) U/L ALT 16 (0-41) U/L Alkaline Phosphata se 66 (40-130) IU/L Troponin T Baselin e 31 H (0-15) ng/L Troponin T 120 Min [place] (0-15) ng/L Delta Troponin T (0-10) ABS# Total Protein 7.4 (6.6-8.7) g/dL Albumin 4.1 (3.5-5.2) g/dL Globulin 3.3 (1.3-4.6) g/dL Lipase 27 (13-60) U/L Urine Color (Yellow) Urine Appearance (CLEAR) Urine pH (5-7) Ur Specific Gravit y (1.005-1.030) Urine Protein (Negative) Urine Glucose (UA) (Normal) Urine Ketones (Negative) Urine Blood (Negative) Urine Nitrate (Negative) Urine Bilirubin (Negative) Urine Urobilinogen (Negative) mg/dL Ur Leukocyte Herlinda ase (Negative) Urine RBC (0-2) /hpf Urine WBC (0-5) /hpf Ur Squamous Epith Cells (0-5) /hpf Amorphous Sediment Urine Bacteria (NONE) /hpf 02/10/21 02/10/21 02/10/21 Range/Units 02:24 02:24 02:47 WBC (4.0-10.0) 10^3/ uL RBC (4.1-5.3) 10^6/u L Hgb (11.7-16.6) g/dL Hct (42.0-52.0) % MCV (80-94) fL MCH (28.0-34.0) pg MCHC (30.0-36.0) g/dL RDW (12.1-15.1) % Plt Count (130-400) 10^3/c mm MPV (7.4-10.4) fL Neut % (Auto) % Lymph % (Auto) % [place]ake % (Auto) % Eos % (Auto) % Baso % (Auto) % Neut # (Auto) (1.8-7.7) 10^3/u L Lymph # (Auto) (0.8-4.8) 10^3/u L Leake # (Auto) (0.2-0.9) 10^3/u L Eos # (Auto) (0.0-0.8) 10^3/u L Baso # (Auto) (0.0-0.1) 10^3/u L Nucleated RBC % (a uto) % Nucleated RBCs # /100WBC Sodium (136-145) mmol/L Potassium (3.5-5.1) mmol/L Chloride (98-107) mmol/L Carbon Dioxide (22-29) mmol/L Anion Gap (5-19) BUN (8-23) mg/dL Creatinine (0.7-1.2) mg/dL GFR Calculation Glucose (65-115) mg/dL Calculated Osmolal ity (285-295) mOsm/k g Lactate 0.8 (0.5-2.2) mmol/L Calcium (8.5-10.5) mg/dL Total Bilirubin (0.15-1.2) mg/dL AST (0-40) U/L ALT (0-41) U/L Alkaline Phosphata se (40-130) IU/L Troponin T Baselin e (0-15) ng/L Troponin T 120 Min [place] 30.87 H (0-15) ng/L Delta Troponin T -0.13 L (0-10) ABS# Total Protein (6.6-8.7) g/dL Albumin (3.5-5.2) g/dL Globulin (1.3-4.6) g/dL Lipase (13-60) U/L Urine Color Yellow (Yellow) Urine Appearance Clear (CLEAR) Urine pH 7 (5-7) Ur Specific Gravit y 1.005 (1.005-1.030) Urine Protein Neg (Negative) Urine Glucose (UA) Norm (Normal) Urine Ketones 1+ H (Negative) Urine Blood 2+ H (Negative) Urine Nitrate Negative (Negative) Urine Bilirubin Neg (Negative) Urine Urobilinogen Norm (Negative) mg/dL Ur Leukocyte Herlinda ase Trace H (Negative) Urine RBC 5-10 H (0-2) /hpf Urine WBC 0-4 H (0-5) /hpf Ur Squamous Epith Cells 0-4 H (0-5) /hpf Amorphous Sediment Not Reportable Urine Bacteria None (NONE) /hpf Imaging Data^: CT Head: Radiologist's impression: [address] [address] [address] Scan Report Signed Patient: Logan Maynard Unit #: [id number] : 1950 Age/Sex: 70 / M ADM Date: 02/09/21 Loc: ER Room/Bed: Attending Dr: Ordering Provider/Ordering MD: Katie Dyer Date of Service: 02/09/21 Procedure(s): CT head wo con* [id number] Accession Number(s): [id number] Report Number: [id number] PROCEDURE INFORMATION: Exam: CT Head Without Contrast Exam date and time: 02/09/2021 11:41 PM Age: 70 years old Clinical indication: Injury or trauma; Blunt trauma (contusions or hematomas); Prior surgery; Surgery type: Scalp; Patient HX: Fall. Small hematoma to forehead with lac to right temporal region. History of brain mets. ; Additional info: Fall, known brain mets, dizziness TECHNIQUE: Imaging protocol: Computed tomography of the head without contrast. Radiation optimization: All CT scans at this facility use at least one of these dose optimization techniques: automated exposure control; mA and/or kV adjustment per patient size (includes targeted exams where dose is matched to clinical indication); or iterative reconstruction. COMPARISON: 1. CT head wo con* [id number] 2019-07-01 10:[address] [place] [id number] 2019-05-08 06:53 RADIATION DOSE METRICS: Total DLP (mGy-cm): 887.45 FINDINGS: Brain: Couple vague areas of low attenuation within the brain, question chronic small vessel disease and or known metastases. No midline shift, fluid collection, or evidence of acute hemorrhage. Cerebral ventricles: No ventriculomegaly. Bones/joints: Larger, lytic lesion involving the right of midline frontal bone, evidence of an enlarging osseous metastases, measures 2 cm. Almost extends through and through the right frontal bone. Paranasal sinuses: Mild scattered paranasal sinus mucosal thickening and secretions. Mastoid air cells: Visualized mastoid air cells are well aerated. Soft tissues: Right lateral periorbital contusion and small hematoma. CT/CT head wo con* [id number] IMPRESSION: 1. Right lateral periorbital contusion and small hematoma. 2. Larger, lytic lesion involving the right of midline frontal bone, evidence of an enlarging osseous metastases, measures 2 cm. Almost extends through and through the right frontal bone. 3. Couple vague areas of low attenuation within the brain, question chronic small vessel disease and or known metastases. Radiation Dose CTDIVOL = (mGy): DLP = 887.45 (mGy-cm) Dictated By: Rafy Poon MD Signed By: Rafy Poon MD Signed Date/Time: 02/10/21 0002 DD/ 0001 Other Xray: Radiologist's impression: Other Imaging: Radiologist's impression: [address] [address] [address] Scan Report Signed Patient: Logan Maynard Unit #: [id number] : [id number] Age/Sex: 70 / M ADM Date: 1 Loc: ER Room/Bed: Attending Dr: Ordering Provider/Ordering MD: Katie Dyer Date of Service: 02/10/21 Procedure(s): CT abdomen pelvis w con* [id number] Accession Number(s): [id number] Report Number: [id number] PROCEDURE INFORMATION: Exam: CT Abdomen And Pelvis With Contrast Exam date and time: 02/10/2021 1:49 AM Age: 70 years old Clinical indication: Abdominal pain; Localized; Right upper quadrant (ruq); Prior surgery; Surgery type: Hernia repair. Cardiac stents; Patient HX: Ruq pain. History of mets. ; Additional info: Abd pain, metastatic disease TECHNIQUE: Imaging protocol: Computed tomography of the abdomen and pelvis with contrast. Radiation optimization: All CT scans at this facility use at least one of these dose optimization techniques: automated exposure control; mA and/or kV adjustment per patient size (includes targeted exams where dose is matched to clinical indication); or iterative reconstruction. Contrast material: VISI 320; Contrast volume: 95 ml; Contrast route: INTRAVENOUS (IV); COMPARISON: 1. CT chest abd pel w con* 2020-11-15 10:[address] chest abd pel w con* 2020-02-04 10:57 RADIATION DOSE METRICS: Total DLP (mGy-cm): 1632.69 FINDINGS: Heart: Small to medium sized pericardial effusion. Mediastinal space: Small gastroesophageal sliding type hiatal hernia. Liver: Unchanged hepatic hemangioma. Small, less than 5 mm, liver hypodensity. Highly likely to be benign and does not require follow-up imaging or biopsy per ACR. Gallbladder and bile ducts: Normal. No calcified stones. No ductal dilation. Pancreas: Normal. No ductal dilation. Spleen: Normal. No splenomegaly. Adrenal glands: Larger right adrenal lesion, now measures 2.4 cm, previously 1.8 cm. Kidneys and ureters: Unchanged renal cystic lesions. Numerous exophytic simple benign renal cysts measuring up to 5.1 cm. Nonobstructing left renal calculi measuring up to 11 mm. Stomach and bowel: Significant excess stool in the transverse colon. Appendix: No evidence of appendicitis. Intraperitoneal space: Unremarkable. No free air. No significant fluid collection. Vasculature: Mild to moderate aortic and iliac artery atherosclerotic calcification. 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 Lymph nodes: Unremarkable. No enlarged lymph nodes. Urinary bladder: Unremarkable as visualized. Reproductive: Mild prostate gland enlargement and calcifications. Bones/joints: There is a bilateral spondylolysis defect of the L5-S1 level, with no evidence of spondylolisthesis. Impression. Soft tissues: Nonobstructed fat protruding and small bowel containing bilateral inguinal hernias, left greater than right. Impression. CT/CT abdomen pelvis w con* [id number] IMPRESSION: 1. Larger right adrenal lesion, now measures 2.4 cm, previously 1.8 cm. 2. 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 COMMENTS: Consistent with the [employer]'s Incidental Findings Committee white paper (J Am Cat Radiol 2018): Any incidental renal lesion less than 1 cm or classified as too small to characterize, or any incidental cystic renal lesion characterized as simple-appearing, is likely benign. No follow-up imaging is recommended for these lesions per consensus recommendations based on imaging criteria. Radiation Dose CTDIVOL = (mGy): DLP = 1632.69 (mGy-cm) Dictated By: Rafy Poon MD Signed By: Rafy Poon MD Signed Date/Time: 02/10/21230 DD/ 9 Discharge Plan Discharge Patient Disposition: Admitted As Inpatient Clinical Impression: Dizziness, Weakness Pneumonia Qualifiers: Pneumonia type: due to unspecified organism Laterality: right Lung location: middle lobe of lung Qualified Code(s): J18.9 - Pneumonia, unspecified organism Condition: Stable Coding Level of Care Code ED Mattress [place] for Chg Fwd Exam Comprehensive
[2021-02-10] VITALS (9 sets, daily range): BP systolic 130–166; BP diastolic 82–111; PULSE 71–96; RESP 16–20; TEMP 36.3–36.8; O2SAT 94–99
[2021-02-10 00:44] LABS: Basophils % 0.8 %; Eosinophils # 0.1 10^3/uL (0.0-0.8); Eosinophils % 2.8 %; Hematocrit 42.3 % (42.0-52.0); Hemoglobin 13.4 g/dL (11.7-16.6); Lymphocytes # 0.8 10^3/uL (0.8-4.8); Lymphocytes % 22.8 %; Mean Corpuscular HGB Conc 31.7 g/dL (30.0-36.0); Mean Corpuscular Hemoglobin 29.9 pg (28.0-34.0); Mean Corpuscular Volume 94.4 fL (80-94); Mean Platelet Volume 11.6 fL (7.4-10.4); Monocytes # 0.4 10^3/uL (0.2-0.9); Monocytes % 9.7 %; Neutrophils # 2.28 10^3/uL (1.8-7.7); Neutrophils % 63.6 %; Nucleated Red Blood Cells % 0 %; Platelet Count 143 10^3/cmm (130-400); Red Blood Count 4.48 10^6/uL (4.1-5.3); Red Cell Distribution Width 15.1 % (12.1-15.1); White Blood Count 3.6 10^3/uL (4.0-10.0)
[2021-02-10 00:59] LABS: Troponin(5th) Baseline 31 ng/L (0-15)
[2021-02-10] MEDS: ondansetron 4 MG Tablet PO (01:13)
[2021-02-10] MEDS: sodium chloride 0.9% 500 ML 999 ML IV (01:14)
[2021-02-10 01:20] LABS: Alanine Aminotransferase 16 U/L (0-41); Albumin Level 4.1 g/dL (3.5-5.2); Alkaline Phosphatase 66 IU/L (40-130); Anion Gap 16.9 (5-19); Aspartate Amino Transferase 33 U/L (0-40); Blood Urea Nitrogen 15 mg/dL (8-23); Calcium 8.8 mg/dL (8.5-10.5); Carbon Dioxide 24 mmol/L (22-29); Chloride 101 mmol/L (98-107); Globulin 3.3 g/dL (1.3-4.6); Glucose 88 mg/dL (65-115); Lipase 27 U/L (13-60); Osmolality Calculated 286 mOsm/kg (285-295); Potassium 3.9 mmol/L (3.5-5.1); Sodium 138 mmol/L (136-145); Total Bilirubin 0.5 mg/dL (0.15-1.2); Total Protein 7.4 g/dL (6.6-8.7)
--- NOTE | 2021-02-10 01:27 | CTR_ITS ---
PROCEDURE INFORMATION: Exam: CT Abdomen And Pelvis With Contrast Exam date and time: 02/10/2021 1:49 AM Age: 70 years old Clinical indication: Abdominal pain; Localized; Right upper quadrant (ruq); Prior surgery; Surgery type: Hernia repair. Cardiac stents; Patient HX: Ruq pain. History of mets. ; Additional info: Abd pain, metastatic disease TECHNIQUE: Imaging protocol: Computed tomography of the abdomen and pelvis with contrast. Radiation optimization: All CT scans at this facility use at least one of these dose optimization techniques: automated exposure control; mA and/or kV adjustment per patient size (includes targeted exams where dose is matched to clinical indication); or iterative reconstruction. Contrast material: VISI 320; Contrast volume: 95 ml; Contrast route: INTRAVENOUS (IV); COMPARISON: 1. CT chest abd pel w con* 2020-11-15 10:[address] chest abd pel w con* 2020-02-04 10:57 RADIATION DOSE METRICS: Total DLP (mGy-cm): 1632.69 FINDINGS: Heart: Small to medium sized pericardial effusion. Mediastinal space: Small gastroesophageal sliding type hiatal hernia. Liver: Unchanged hepatic hemangioma. Small, less than 5 mm, liver hypodensity. Highly likely to be benign and does not require follow-up imaging or biopsy per ACR. Gallbladder and bile ducts: Normal. No calcified stones. No ductal dilation. Pancreas: Normal. No ductal dilation. Spleen: Normal. No splenomegaly. Adrenal glands: Larger right adrenal lesion, now measures 2.4 cm, previously 1.8 cm. Kidneys and ureters: Unchanged renal cystic lesions. Numerous exophytic simple benign renal cysts measuring up to 5.1 cm. Nonobstructing left renal calculi measuring up to 11 mm. Stomach and bowel: Significant excess stool in the transverse colon. Appendix: No evidence of appendicitis. Intraperitoneal space: Unremarkable. No free air. No significant fluid collection. Vasculature: Mild to moderate aortic and iliac artery atherosclerotic calcification. 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 Lymph nodes: Unremarkable. No enlarged lymph nodes. Urinary bladder: Unremarkable as visualized. Reproductive: Mild prostate gland enlargement and calcifications. Bones/joints: There is a bilateral spondylolysis defect of the L5-S1 level, with no evidence of spondylolisthesis. Impression. Soft tissues: Nonobstructed fat protruding and small bowel containing bilateral inguinal hernias, left greater than right. Impression. CT/CT abdomen pelvis w con* [id number] IMPRESSION: 1. Larger right adrenal lesion, now measures 2.4 cm, previously 1.8 cm. 2. 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 COMMENTS: Consistent with the [employer]'s Incidental Findings Committee white paper (J Am Cat Radiol 2018): Any incidental renal lesion less than 1 cm or classified as too small to characterize, or any incidental cystic renal lesion characterized as simple-appearing, is likely benign. No follow-up imaging is recommended for these lesions per consensus recommendations based on imaging criteria. Radiation Dose CTDIVOL = (mGy): DLP = 1632.69 (mGy-cm)
[2021-02-10] MEDS: iodixanol 320 mg/mL 100mL Btl IV (02:06)
--- NOTE | 2021-02-10 02:49 | XR_ITS ---
WS: [id number] Exam: XR chest 1V portable [id number] Date/Time of Exam: 02/10/2021 3:02 AM Reason For Exam: dizziness Comparison 03/27/2020. Findings: The lungs are clear and fully expanded. Costophrenic angles are sharp. No infiltrates. Bronchovascula r relief appears normal. Cardiac silhouette is unremarkable. Bony elements are intact. XR/XR chest 1V portable [id number] IMPRESSION: Unremarkable chest radiograph.
[2021-02-10 02:50] LABS: Lactate (Lactic Acid level) 0.8 mmol/L (0.5-2.2)
[2021-02-10 02:51] LABS: Troponin 5 2HR 30.87 ng/L (0-15)
[2021-02-10 02:59] LABS: Troponin 5 2HR Delta -0.13 ABS# (0-10)
[2021-02-10 03:04] LABS: Urine Appearance Clear (CLEAR); Urine Color Yellow (Yellow); pH Urine 7 (5-7)
[2021-02-10 03:05] LABS: Add Urine Microscopic? YES; Bilirubin Urine Neg (Negative); Blood Urine 2+ (Negative); Glucose Urine UA Norm (Normal); Ketones Urine 1+ (Negative); Leukocyte Esterase Urine Trace (Negative); Nitrate Urine Negative (Negative); Protein Urine Neg (Negative); Specific Gravity, Urine 1.005 (1.005-1.030); Squamous Epithelial Cell Urine 0-4 /hpf (0-5); Urobilinogen Urine Norm (Negative); WBC Urine 0-4 /hpf (0-5)
[2021-02-10 03:06] LABS: Add Urine Culture? No
--- NOTE | 2021-02-10 03:12 | ECG_ITS ---
[facility] Test Date: 2021-02-10 Pat Name: Logan Maynard Department: Room: Gender: Male Temp Recruiter: : [id number] Requested By: Katie Medina Order Number: [id number] Jerry MD: Ana Nichole M.D. Measurements Intervals [place] Rate: 72 P: 68 MN: 183 QRS: 57 QRSD: 94 T: 29 QT: 390 QTc: 427 Interpretive Statements SINUS RHYTHM INTERPRETATION BASED ON A DEFAULT AGE OF 40 YEARS Compared to ECG 12/08/2019 06:45:57 Sinus arrhythmia no longer present Electronically Signed On 02-10-2021 18:21:09 CDT by Ana Nichole M.D. [id number]
[2021-02-10] MEDS: levofloxacin-dextrose 5 % 750 MG/150 ML PREMIX 100 MG IV (03:43)
[2021-02-10] MEDS: ondansetron 2 mg/ML SDV 2 mL 4 MG IVP ×2 (03:43→05:28)
[2021-02-10] MEDS: hyDRALAzine 10 mg Tablet PO (03:43)
[2021-02-10 07:33] LABS: Troponin 5 6HR 29.62 ng/L (0-15)
[2021-02-10 07:39] LABS: Troponin 5 6HR Delta -1.38 ng/L (0-12)
--- NOTE | 2021-02-10 08:00 | PM.HP ---
Providers/Chief Complaint Admitting Physician: Sotero Hampton Primary Care Provider: Abdifatah Sanchez MD Chief Complaint: fall head and face lac History of Present Illness Logan Maynard is a 70 year old male who presented to the emergency department via ambulance services from a fall at home. He reported he tripped and fell. He states he has intermittent episodes of dizziness as well as nausea. Sometimes he feels short of breath when he is nauseous. He did not throw up this time. He denies any loss of consciousness. He did sustain laceration to his head. He thinks his dizziness has been worse in the last several months after he received radiation treatment for metastatic lesions in his brain. At this point from his oncology notes it appears he is receiving palliative radiation. He denies any repetitive history of falls. At his previous MRI he was noted to have a cerebellar lesion as well. No fever, no cough, no history of Covid or exposure to it. 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 as well as locally invasive basal cell carcinoma from his right frontal scalp Review of Systems General: Reports: 10 or more systems reviewed and unremarkable except in HPI and below Const: Denies: fever(s) Eyes: Denies: change in vision ENMT: Denies: throat pain Card: Denies: chest pain Resp: Reports: dyspnea; Denies: productive cough or non-productive cough GI: Reports: nausea; Denies: abdominal pain or vomiting : Denies: flank pain Musc: Denies: neck pain Skin/Breast: Denies: rash Neuro: Denies: headache(s) Psych: Denies: anxiety Endo: Denies: polyuria Az/Lymph: Denies: easy bruising All/Imm: Denies: urticaria Medications/Allergies Home Medications Medication Instructions Recorded Confirmed Last Taken Type ibuprofen 200 mg PO Q8H PRN 02/10/21 02/10/21 Unknown History lactobacillus combination no.4 3,000 mmu cells PO DAILY 02/10/21 02/10/21 Unknown History [Probiotic] levothyroxine 150 mcg PO DAILY 02/10/21 02/10/21 Unknown History lorazepam 0.5 - 1 mg PO TID PRN 02/10/21 02/10/21 Unknown History multivitamin 1 tab PO DAILY 02/10/21 02/10/21 Unknown History Allergies Allergy/AdvReac Type Severity Reaction Status Date / Time tamsulosin [From Flomax] Allergy Unknown Unknown Verified 02/10/21 09:08 aspirin Allergy ADR-Muscle Verified 02/10/21 09:08 Pain Sulfa (Sulfonamide Allergy ALGY-Hives Verified 02/10/21 09:08 Antibiotics) PFSH Acute PFSH: Medical History (Updated 02/10/21 @ 09:08 by Sukhdev Stoddard MD) Basal cell carcinoma of skin of scalp and neck BPH (benign prostatic hyperplasia) CAD (coronary artery disease) GERD (gastroesophageal reflux disease) HTN (hypertension) Left ureteral stone HX OF URETEROSCOPY WITH STONE MANIPULATION Malignant neoplasm of middle lobe bronchus Surgical History (Updated 02/10/21 @ 09:01 by Sukhdev Stoddard MD) Hx of heart artery stent Hx of left inguinal hernia repair Family History Mother Stroke CAD (coronary artery disease) Father , AT AGE 85 CAD (coronary artery disease) RENAL FAILURE Social History (Updated 02/10/21 @ 09:02 by Sukhdev Stoddard MD) Smoking and tobacco status: former smoker Alcohol intake: current Alcohol intake frequency: 0-2 Drinks per Day Adopted: No Caregiver/support person: No Marital status: Single Current occupational status: retired Vitals/I&O/Wt Last Vital Signs Temp 97.8 F 02/10/21 05:54 Pulse 85 02/10/21 06:03 Resp 16 02/10/21 06:03 BP 158/94 02/10/21 06:03 Pulse Ox 94 02/10/21 06:03 02/09/21 02/10/21 02/10/21 22:59 06:59 14:59 Intake Total 650 / 650 Balance 650 / 650 Weight last 48 hrs Weight 81.647 kg Physical Exam Narrative: EXAM NARRATIVE: General exam is a white male, no distress HEENT: Pupils equally round. Oropharynx clear. Abrasion noted right forehead Neck is supple no lymphadenopathy or thyromegaly Cardiovascular regular rate and rhythm without murmur, no S3 or S4 Lungs clear no wheezing or crackles Abdomen is soft with positive bowel sounds. No obvious organomegaly was deferred Extremities no cyanosis clubbing or edema, cap refill brisk Neuro no obvious focal deficits. Data : 02/10/21 00:39 02/10/21 00:39 Other data: Troponin 31 with repeat 30 LFTs are normal Magnesium level normal Urinalysis 5-10 reds 0-4 whites Chest x-ray no infiltrate Abdominal pelvis CT demonstrates right adrenal lesion, focal dilation right common iliac artery CT head demonstrates periorbital contusion and small hematoma right side, lytic lesion right frontal bone, vague areas in the brain chronic vessel disease versus known metastasis EKG demonstrates normal sinus rhythm, normal axis, no acute changes A&P Assessment and plan (1) Fall: Mechanical fall. Patient relates he tripped. No history to suggest arrhythmia. EKG normal. Status: Acute (2) Closed head injury: Abrasion/laceration noted. No intracranial hemorrhage. Status: Acute (3) Dizziness: Longstanding, and occasionally associated with nausea. Still present. Known history of metastatic brain disease including cerebellum. MRI of the brain to exclude any edema associated with his metastatic disease. If there is he may need dexamethasone. Physical therapy consultation in regards to dizziness and fall to see if he is safe to go home Thyroid abnormality was not taking his thyroid hormone may contribute Check orthostatic blood pressures Magnesium level checked and normal Status: Acute Additional A&P Information History of abnormal thyroid hormone. Check TSH. He was previously on 150 mcg of thyroid hormone but stopped 2 months ago. Metastatic non-small cell lung cancer, with history of cerebellar lesion in the past. November 28 was his most recent palliative radiation therapy to his brain. Locally invasive basal cell cancer Past history of coronary disease Hypertension Multiple other medical problems as listed in his past medical history Full code. Discussed in detail with the patient. If in the event he may be significantly impaired he would want to change this Lovenox for DVT prophylaxis Observation patient He has no clinical symptoms of pneumonia, nor objective evidence. Attestations Medical Necessity Statement*: Will need less than 2 midnight stay for evaluation of fall: Associated with dizziness. 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
[2021-02-10 08:35] LABS: Magnesium 2.1 mg/dL (1.7-2.3); Thyroid Stimulating Hormone 84.23 uIU/mL (0.27-4.20)
[2021-02-10] MEDS: acetaminophen 325 mg Tablet 650 MG PO (08:53)
[2021-02-10] MEDS: amlodipine 10 mg Tablet PO (08:53)
[2021-02-10] MEDS: enoxaparin 40 mg/0.4 mL Syringe SUBCUT (08:54)
[2021-02-10] MEDS: sodium chloride 0.9% 1,000 ML 75 ML IV (08:54)
[2021-02-10] MEDS: levothyroxine 50 mcg Tablet PO (09:26)
[2021-02-10 10:05] LABS: Free T4 Free Thyroxine < 0.10 ng/dL (0.82-1.77); T3 Free < 0.4 PG/ML (2.0-4.4)
--- NOTE | 2021-02-10 12:30 | MR_ITS ---
WS: [id number] MRI BRAIN WITH AND WITHOUT CONTRAST HISTORY: dizziness, history of metastatic brain lesions COMPARISON: 11/08/2020 TECHNIQUE: Multiplanar imaging performed through the brain with MultiHance 17 ml's IV. Patient has known metastatic disease to the brain. The largest peripherally enhancing lesion in the p osterior RIGHT frontal lobe measures 10 mm. Central necrosis with peripheral enhancement. Stable amou nt of surrounding edema. Very minimal increase in size if any. LEFT cerebellar lesion measures 5.5 mm with minimal increase in size. Previously described RIGHT frontoparietal lesion appears slightly sma ller measuring about 2 mm. Posterior RIGHT parietal lobe cortical lesion measures 7 mm on unchanged. Again noted is the RIGHT medial temporal lobe lesion measuring 4 mm. Possible 2 mm lesion along the m edial LEFT temporal horn. Stable 2 mm occipital lobe enhancing lesion. There is no significant mass effect or significant progression of edema surrounding the metastatic le sions. Mild atrophy and chronic ischemic disease. Paranasal sinuses: Well aerated with no significant disease. Mastoid air cells: Normal. Calvarium and scalp: Stable postoperative changes in the RIGHT frontal scalp and cranium. By history prior basal cell carcinoma resection. MR/MR head wo/w con [id number] IMPRESSION: 1. Patient has multiple stable metastatic lesions within the brain as describe d above. There is no significant progression since 11/08/2020. No new lesions i dentified. Largest lesion measures 10 mm in the posterior RIGHT frontal lobe. 2. No hemorrhage or midline shift. No hydrocephalus. 3.
--- NOTE | 2021-02-10 12:32 | PC.CHAP ---
Pastoral Care Encounter/Spiritual Assessment Type of Contact [] Declined department secretary visit [] Patient/Family/Request visit [] Outpatient visit [] Follow-up visit [] Physician referral [] Code/Alert [xx] Routine visit [] Staff referral [] Actively dying [] Patient sleeping [] Family support [] [] Out of room [] Palliative care [] [] Receiving care in room [] Pre-surgical visit [] Trauma [] Long length of stay [] ICU visit [] Other: Relational/Emotional Strength [xx] Patient feels connected with others/family/visitors/staff [] Distress [] Loneliness/isolation [] Abandonment Spirituality of Patient [xx] Person of [place] [xx] Attends Buddhism of their [place] [xx] Believes in Prayer [xx] Reads Bible or Islam materials [] There are Spiritual issues to be addressed Clinical Team Lead Interventions [xx] Prayer [xx] Active listening [xx] Non-anxious presence [] Spiritual/emotional support [] Crisis/trauma care [] Spiritual counseling [] Bereavement support [] Provided bereavement packet [xx] Provided Bible/devotional materials [] Provided toy/stuffed animal, coloring book to patient or family member [] Provided Communion [] Anointing/[place] [] Salvation [xx] Completed spiritual assessment [] Other: Impact on Illness or Injury [] Angry [] Fearful [] Anxious [] Often cries [] Exhaustion [] Unable to work [] Unable to attend jew [] Unable to walk/stand [] Unable to read [] Unable to drive [] Unable to eat/drink [] Unable to sleep [] Unable to be with family [] Patient intubated [] Other: Summary Patient stated he is feeling better. He is excpecting granddaughter from [place] to come and take him home. She will stay over weekend to visit and care for him. Time spent with patient 17 minutes
--- NOTE | 2021-02-10 14:01 | P.DS_ITS ---
Discharge Providers Date of Admission: 02/10/21 03:39 Date of Discharge: February 10, 2021 Attending Provider at Admission: Sotero Hampton Attending Provider at Discharge: Sukhdev Stoddard MD Primary Care Provider: Abdifatah Sanchez MD Diagnoses at Discharge Discharge Diagnosis (1) Fall: Status: Acute (2) Closed head injury: Status: Acute (3) Dizziness: Status: Acute Reason for Visit Reason for Visit: fall head and face lac Hospital Course Hospital Course Logan is a 70-year-old white male who presented to the hospital after a fall. He reported he had chronic dizziness, and some nausea on occasion. He has a history of metastatic non-small cell cancer to the brain. He was placed in observation. Physical therapy worked with him and believed he was safe to go home. MRI was performed of his brain which demonstrated no significant edema or change in his metastatic lesions. Therefore it was thought he could be discharged home. Likely he had a mechanical fall, and his chronic imbalance contributed to this. Of note, his thyroid hormone was stopped around 8 weeks ago. Patient believes he was told to do this. His TSH is markedly elevated. I initiated levothyroxine at 50 mcg a day and consideration to increase this further to 100 and about a week and a repeat TSH in 4 to 6 weeks. Note that he was previously on around 125 mcg before abruptly stopping the medication. He denies any chest discomfort, history of palpitations. Physical Exam Narrative: EXAM NARRATIVE: See exam done earlier today Discharge Data Data Completed and Pending: Completed Studies During Hospitalization Category Date Time Status CT abdomen pelvis w con* [id number] Urge nt Cat Scan 02/10/21 01:[address] head wo con* [id number] Stat Cat Scan 02/09/21 23:40 Completed XR chest 1V brad ble [id number] Urgent Exams 02/10/21 02:49 Completed MR head wo/w con [id number] Routine MRI 02/10/21 12:30 Completed Pending at discharge Category Date Time Status Complete Blood Co unt w/Auto AM LABS Lab 02/11/21 04:00 Ordered Comprehensive Met abolic Panel AM LA BS Lab 02/11/21 04:00 Ordered Magnesium AM LABS Lab 02/11/21 04:00 Ordered Labs from last 24 hours 02/10/21 02/10/21 02/10/21 06:55 06:53 06:53 WBC RBC Hgb Hct MCV MCH MCHC RDW Plt Count MPV Neut % (Auto) Lymph % (Auto) Ferry % (Auto) Eos % (Auto) Baso % (Auto) Neut # (Auto) Lymph # (Auto) [place] # (Auto) Eos # (Auto) Baso # (Auto) Nucleated RBC % (a uto) Nucleated RBCs # Sodium Potassium Chloride Carbon Dioxide Anion Gap BUN Creatinine GFR Calculation Glucose Calculated Osmolal ity Lactate Calcium Magnesium 2.1 Total Bilirubin AST ALT Alkaline Phosphata se Troponin T Baselin e Troponin T 120 Min [place] Delta Troponin T Troponin T Hi Sens 6Hr 29.62 H Troponin T Hi Sens 6Hr Delta -1.38 L Total Protein Albumin Globulin Lipase TSH 84.23 H Free T4 < 0.10 L Free T3 < 0.4 L Urine Color Urine Appearance Urine pH Ur Specific Gravit y Urine Protein Urine Glucose (UA) Urine Ketones Urine Blood Urine Nitrate Urine Bilirubin Urine Urobilinogen Ur Leukocyte Herlinda ase Urine RBC Urine WBC Ur Squamous Epith Cells Amorphous Sediment Urine Bacteria 02/10/21 02/10/21 02/10/21 02:47 02:24 02:24 WBC RBC Hgb Hct MCV MCH MCHC RDW Plt Count MPV Neut % (Auto) Lymph % (Auto) Ferry % (Auto) Eos % (Auto) Baso % (Auto) Neut # (Auto) Lymph # (Auto) [place] # (Auto) Eos # (Auto) Baso # (Auto) Nucleated RBC % (a uto) Nucleated RBCs # Sodium Potassium Chloride Carbon Dioxide Anion Gap BUN Creatinine GFR Calculation Glucose Calculated Osmolal ity Lactate 0.8 Calcium Magnesium Total Bilirubin AST ALT Alkaline Phosphata se Troponin T Baselin e Troponin T 120 Min [place] 30.87 H Delta Troponin T -0.13 L Troponin T Hi Sens 6Hr Troponin T Hi Sens 6Hr Delta Total Protein Albumin Globulin Lipase TSH Free T4 Free T3 Urine Color Yellow Urine Appearance Clear Urine pH 7 Ur Specific Gravit y 1.005 Urine Protein Neg Urine Glucose (UA) Norm Urine Ketones 1+ H Urine Blood 2+ H Urine Nitrate Negative Urine Bilirubin Neg Urine Urobilinogen Norm Ur Leukocyte Herlinda ase Trace H Urine RBC 5-10 H Urine WBC 0-4 H Ur Squamous Epith Cells 0-4 H Amorphous Sediment Not Reportable Urine Bacteria None 02/10/21 02/10/21 02/10/21 00:39 00:39 00:39 WBC 3.6 L RBC 4.48 Hgb 13.4 Hct 42.3 MCV 94.4 H MCH 29.9 MCHC 31.7 RDW 15.1 Plt Count 143 MPV 11.6 H Neut % (Auto) 63.6 Lymph % (Auto) 22.8 Ferry % (Auto) 9.7 Eos % (Auto) 2.8 Baso % (Auto) 0.8 Neut # (Auto) 2.28 Lymph # (Auto) 0.8 Ferry # (Auto) 0.4 Eos # (Auto) 0.1 Baso # (Auto) 0.0 Nucleated RBC % (a uto) 0 Nucleated RBCs # 0.0 Sodium 138 Potassium 3.9 Chloride 101 Carbon Dioxide 24 Anion Gap 16.9 BUN 15 Creatinine 1.3 H GFR Calculation Not Reportable Glucose 88 Calculated Osmolal ity 286 Lactate Calcium 8.8 Magnesium Total Bilirubin 0.5 AST 33 ALT 16 Alkaline Phosphata se 66 Troponin T Baselin e 31 H Troponin T 120 Min [place] Troponin T Troponin T Hi Sens 6Hr Troponin T Hi Sens 6Hr Delta Total Protein 7.4 Albumin 4.1 Globulin 3.3 Lipase 27 TSH Free T4 Free T3 Urine Color Urine Appearance Urine pH Ur Specific Gravit y Urine Protein Urine Glucose (UA) Urine Ketones Urine Blood Urine Nitrate Urine Bilirubin Urine Urobilinogen Ur Leukocyte Herlinda ase Urine RBC Urine WBC Ur Squamous Epith Cells Amorphous Sediment Urine Bacteria Vitals: Last Vital Signs Temp 98.2 F 02/10/21 10:59 Pulse 71 02/10/21 10:59 Resp 18 02/10/21 10:59 BP 142/90 02/10/21 10:59 Pulse Ox 99 02/10/21 10:59 Discharge Plan Discharge Patient Disposition: Home Condition: Stable Prescriptions: New levothyroxine 50 mcg Tablet 50 mcg PO QAM Qty: 30 RF: 0 Continued multivitamin Tablet 1 tab PO DAILY RF: 0 levothyroxine 150 mcg Tablet 150 mcg PO DAILY RF: 0 lorazepam 1 mg Tablet 0.5 - 1 mg PO TID PRN (Reason: Nausea) RF: 0 Probiotic 3 billion cell Capsule 3,000 mmu cells PO DAILY RF: 0 Discontinued ibuprofen 200 mg Tablet 200 mg PO Q8H PRN (Reason: Pain) RF: 0 Discharge Orders: Discharge Order (Routine); Ordered 02/10/21 Ordered By: Sukhdev Stoddard Other Ambulatory Orders: Physical Therapy Eval and Treat Outpatient (Order) Timeframe: 1 Week Facility: [facility] - Location: Physical Therapy Ordered By: Sukhdev Stoddard Referrals: Abdifatah Sanchez MD [Primary Care Provider] - 02/17/21 3:00 pm (Consider increasing thyroid hormone at that time and repeating TSH 4 to 6 weeks. ) Discharge Diet: Regular Discharge Activity: Increase activity as tolerated Patient Instructions: Opioid Safety Activity Restrictions/Additional Instructions: Outpatient physical therapy evaluation Keep appointment with oncology There is no need for you to repeat your MRI Talk with Dr. Sanchez regarding increasing your thyroid hormone at follow-up, and repeating a TSH in approximately 4 to 6 weeks. Discharge Attestations Time Spent in Discharge Care*: greater than 30 min Quality Metrics Clinical Quality Measures During this hospital stay, did patient experience: None Coding Level of Care Code Acute g FW PA note Diagnoses Fall W19.XXXA Closed head injury S09.90XA Dizziness R42
--- NOTE | 2021-02-10 15:06 | PC.NURSE ---
discharge instructions reviewed with patient and family member, verbalized understanding, and denies further questions or concerns.
--- NOTE | 2021-02-10 15:31 | PC.NURSE ---
patient requested prescription to be filled at [facility] of [facility], rx called to [facility].
== END 2021-02-10 15:33 | disposition home or self-care (01) ==
LOC: ER 02-10 03:32 → MEDSURG 02-10 07:02
PROVIDERS: Admitting Provider Hospitalist; Emergency Provider Nurse Practitioner Family; PCP Family Medicine; Visit Provider Internal Medicine
DX: S09.90XA Unspecified injury of head, initial encounter (principal); W01.0XXA Fall on same level from slipping, tripping and stumbling without subsequent striking against object, initial encounter; Y92.009 Unspecified place in unspecified non-institutional (private) residence as the place of occurrence of the external cause; R42 Dizziness and giddiness; Z85.89 Personal history of malignant neoplasm of other organs and systems; N40.0 Benign prostatic hyperplasia without lower urinary tract symptoms; I25.10 Atherosclerotic heart disease of native coronary artery without angina pectoris; K21.9 Gastro-esophageal reflux disease without esophagitis; I10 Essential (primary) hypertension; Z95.5 Presence of coronary angioplasty implant and graft; Z82.49 Family history of ischemic heart disease and other diseases of the circulatory system; Z82.3 Family history of stroke; Z87.891 Personal history of nicotine dependence
CPT/HCPCS: 12011; 36415; 70450; 70553; 71045; 74177; 80053; 81001; 83605; 83690; 83735; 84439; 84443; 84481; 84484; 85025; 93005; 96365; 96367; 96372; 96375; 96376; 97161; 97530; 99285; A9577; G0378; J1650; J1956; J2405; J7030; J7040; Q0162; Q9967

== ENCOUNTER 2021-02-21 12:57 | Outpatient (RCR) | payer MEDICARE, OTHER, SELFPAY | END 2021-02-21 23:00 | disposition home or self-care (01) | LOC: SPT 12:57 | PROVIDERS: PCP Family Medicine; Referring Provider Internal Medicine; Visit Provider Internal Medicine | DX: R53.1 Weakness (principal); R26.89 Other abnormalities of gait and mobility | CPT/HCPCS: 97162 ==

== ENCOUNTER 2021-02-23 19:50 | Emergency (ER) | payer MEDICARE, OTHER, SELFPAY ==
[2021-02-23] VITALS (9 sets, daily range): BP systolic 78–192; BP diastolic 51–113; PULSE 65–97; RESP 12–23; TEMP 36.6; O2SAT 94–100; BMI 26.4
--- NOTE | 2021-02-23 20:53 | XRR_ITS ---
PROCEDURE INFORMATION: Exam: XR Chest Exam date and time: 02/23/2021 8:55 PM Age: 70 years old Clinical indication: Other: Low BP; Prior surgery; Surgery type: Cardiac stents; Additional info: Reduced breath sounds TECHNIQUE: Imaging protocol: XR of the chest. Views: 1 view. COMPARISON: CR XR chest 1V portable [id number] 02/10/2021 3:05 AM FINDINGS: Lungs: The lungs are mildly hyperinflated. Trace scarring in the medial right lung. Pleural spaces: Unremarkable. No pleural effusion. No pneumothorax. Heart/Mediastinum: The cardiac shadow is normal in size. Bones/joints: No acute abnormality. XR/XR chest 1V portable [id number] IMPRESSION: No acute findings.
[2021-02-23 21:00] LABS: Basophils % 1.1 %; Eosinophils # 0.1 10^3/uL (0.0-0.8); Eosinophils % 3.4 %; Hematocrit 42.6 % (42.0-52.0); Hemoglobin 13.7 g/dL (11.7-16.6); Lymphocytes # 0.8 10^3/uL (0.8-4.8); Lymphocytes % 19.8 %; Mean Corpuscular HGB Conc 32.2 g/dL (30.0-36.0); Mean Corpuscular Hemoglobin 29.9 pg (28.0-34.0); Monocytes # 0.4 10^3/uL (0.2-0.9); Monocytes % 9.5 %; Neutrophils % 65.9 %; Nucleated Red Blood Cells % 0 %; Platelet Count 193 10^3/cmm (130-400); Red Blood Count 4.58 10^6/uL (4.1-5.3); Red Cell Distribution Width 15.5 % (12.1-15.1); White Blood Count 3.8 10^3/uL (4.0-10.0)
--- NOTE | 2021-02-23 21:03 | PC.PHAR ---
PT STATES HE TAKES CARE OF HIS OWN MEDICATIONS-PT STATES THE DR TOLD HIM TO TAKE 50MCG DAILY OF LEVOTHYROXINE FOR 2 WEEKS AND THEN TO START THE 100MCG-PT STATES HE IS UNSURE WHEN HE IS SUPPOSE TO START THE 100MCG DOSE-PT STATES HE TAKES [place] PRN-PTS MEDICATION BOTTLE HE BROUGHT IN WAS DATED 12/08/19-
[2021-02-23 21:10] LABS: Lactate (Lactic Acid level) 1.1 mmol/L (0.5-2.2)
[2021-02-23] MEDS: cloNIDine 0.1 mg Tablet 0.2 MG PO (21:15)
[2021-02-23 21:21] LABS: Alanine Aminotransferase 19 U/L (0-41); Albumin Level 4.6 g/dL (3.5-5.2); Alkaline Phosphatase 78 IU/L (40-130); Aspartate Amino Transferase 42 U/L (0-40); Blood Urea Nitrogen 12 mg/dL (8-23); Calcium 9.7 mg/dL (8.5-10.5); Carbon Dioxide 25 mmol/L (22-29); Chloride 102 mmol/L (98-107); Globulin 3.5 g/dL (1.3-4.6); Glucose 91 mg/dL (65-115); Osmolality Calculated 285 mOsm/kg (285-295); Sodium 138 mmol/L (136-145); Thyroid Stimulating Hormone 74.49 uIU/mL (0.27-4.20); Total Bilirubin 0.7 mg/dL (0.15-1.2); Total Protein 8.1 g/dL (6.6-8.7)
[2021-02-23 21:35] LABS: Bilirubin Urine Neg (Negative); Blood Urine 2+ (Negative); Glucose Urine UA Norm (Normal); Ketones Urine Negative (Negative); Leukocyte Esterase Urine 2+ (Negative); Nitrate Urine Negative (Negative); Protein Urine Neg (Negative); Specific Gravity, Urine 1.005 (1.005-1.030); Urine Color Yellow (Yellow); Urobilinogen Urine Norm (Negative); pH Urine 7 (5-7)
[2021-02-23 21:36] LABS: Add Urine Microscopic? YES; Squamous Epithelial Cell Urine 0-4 /hpf (0-5); WBC Urine 40-55 /hpf (0-5)
[2021-02-23 21:37] LABS: Add Urine Culture? Yes; Bacteria Urine 1+ /hpf
[2021-02-23] MEDS: ondansetron 2 mg/ML SDV 2 mL 4 MG IVP (21:50)
[2021-02-23] MEDS: cyclobenzaprine 10 mg Tablet 5 MG PO (21:51)
[2021-02-23] MEDS: cefTRIAXone 1,000 MG in sodium chloride 0.9% (plus) 50 ML 100 MG IV (22:22)
--- NOTE | 2021-02-23 22:46 | CTR_ITS ---
PROCEDURE INFORMATION: Exam: CT Abdomen And Pelvis Without Contrast Exam date and time: 02/23/2021 10:51 PM Age: 70 years old Clinical indication: Abdominal pain; Prior surgery; Surgery type: Stents, hernia, cardiac; Additional info: Abdominal pain, UTI TECHNIQUE: Imaging protocol: Computed tomography of the abdomen and pelvis without contrast. Radiation optimization: All CT scans at this facility use at least one of these dose optimization techniques: automated exposure control; mA and/or kV adjustment per patient size (includes targeted exams where dose is matched to clinical indication); or iterative reconstruction. COMPARISON: CT abdomen pelvis w con* [id number] 02/10/2021 2:19 AM RADIATION DOSE METRICS: Total DLP (mGy-cm): 1253.84 FINDINGS: Lungs: Trace scarring in the right lung. Liver: Normal size and density. No focal mass. Gallbladder and bile ducts: No intrahepatic or extrahepatic biliary dilitation. No calcified stones. Pancreas: No evidence of mass. No ductal dilation. Spleen: No splenomegaly or mass. Adrenal glands: An approximately 2.1 cm right adrenal nodule is indeterminate at approximately 21 Hounsfield units in density. Kidneys and ureters: Several bilateral renal cysts which are simple as seen on the prior contrast enhanced exam. Adjacent 8 mm stones in the inferior left kidney. Stomach and bowel: A large amount of formed stool throughout the colon. No signs of obstruction. No significant diverticula. Appendix: No evidence of appendicitis. Intraperitoneal space: No free air. No free fluid or evidence of abscess. Vasculature: Extensive vascular calcification. Calcifications within the lumen of the right common iliac artery and mild dilatation, similar to the prior exam. Lymph nodes: No lymphadenopathy. Urinary bladder: Normal CT appearance. Reproductive: Nonspecific prostate calcifications. Bones/joints: Degenerative changes of the hips and spine. The bones appear demineralized. Soft tissues: Bilateral inguinal hernias contain short sections of bowel. CT/CT abdomen pelvis wo con [id number] IMPRESSION: 1. Large amount of formed stool throughout the colon. 2. Nonobstructing 8 mm left renal stones. 3. Bilateral inguinal hernias contain short sections of bowel. No signs of strangulation. COMMENTS: 1. Consistent with the [employer]'s Incidental Findings Committee white paper (J Am Cat Radiol 2017): For any incidental adrenal lesion greater than 1 cm but less than 4 cm classified in this report as benign, likely benign, or containing fat (including classification as an adenoma or myelolipoma), no follow-up imaging is recommended per consensus recommendations based on imaging criteria. Further lab evaluation could be pursued if warranted based on clinical findings. 2. Consistent with the [employer]'s Incidental Findings Committee white paper (J Am Cat Radiol 2018): Any incidental renal lesion less than 1 cm or classified as too small to characterize, or any incidental cystic renal lesion characterized as simple-appearing, is likely benign. No follow-up imaging is recommended for these lesions per consensus recommendations based on imaging criteria. Radiation Dose CTDIVOL = (mGy): DLP = 1253.84 (mGy-cm)
[2021-02-23] MEDS: sodium chloride 0.9% 1,000 ML 999 ML IV (22:56)
[2021-02-24] VITALS: BP 87/63; PULSE 79; RESP 12; O2SAT 92
[2021-02-24 00:20] VITALS: BP 110/75; PULSE 61; RESP 12; O2SAT 92
--- NOTE | 2021-02-24 00:31 | ED_ITS ---
HPI - General Adult General: Chief complaint: General Medical Stated complaint: HTN Time Seen by Provider: 02/23/21 20:18 History of Present Illness: HPI narrative: The patient is a 70-year-old male with metastatic cancer who comes to the ER complaining of elevated blood pressure, chills, difficulty urinating. He says he sometimes has to self catheterize at home related to his chronic medical condition but has not had to do it in some time. He also complains of chronic upper back pain which has hurt him for 40 years. He was recently admitted related to unsteadiness on his feet and a fall however this is not a problem for him today. Denies chest pain, shortness of breath, headache, abdominal pain. Severity: moderate Associated symptoms: Reports nausea; Deny chest pain, confusion, dyspnea, headache(s), rash, palpitations or vomiting Review of Systems General: Reports: 10 or more systems reviewed and unremarkable except in HPI and below Const: Denies: fatigue Eyes: Denies: change in vision, blurry vision or eye redness ENMT: Denies: throat pain, swelling of lips/tongue, ear or mastoid pain or nasal congestion Card: Denies: chest pain, palpitations, irregular heart rhythm, edema, dyspnea on exertion or orthopnea Resp: Denies: dyspnea, productive cough or non-productive cough GI: Reports: nausea; Denies: abdominal pain, vomiting, diarrhea or GI cramping : Reports: urinary hesitancy; Denies: flank pain, urinary frequency or urinary urgency Musc: Reports: back pain; Denies: neck pain, extremity pain, joint pain, joint redness, limited range of motion or muscle weakness Skin/Breast: Denies: rash, pruritus, erythema, skin pain or skin tenderness Neuro: Denies: headache(s), numbness in extremities, weakness in extremities, sensory changes, difficulty walking, dizziness, confusion or Slurred speech p resent Psych: Denies: anxiety or depression Endo: Denies: polyuria All/Imm: Denies: urticaria, throat swelling or tongue swelling PFSH ED PFSH: Medical History (Updated 02/24/21 @ 00:27 by Clemente Mulligan MD) Basal cell carcinoma of skin of scalp and neck BPH (benign prostatic hyperplasia) CAD (coronary artery disease) GERD (gastroesophageal reflux disease) HTN (hypertension) Left ureteral stone HX OF URETEROSCOPY WITH STONE MANIPULATION Malignant neoplasm of middle lobe bronchus Surgical History (Updated 02/10/21 @ 09:01 by Sukhdev Stoddard MD) Hx of heart artery stent Hx of left inguinal hernia repair Family History Mother Stroke CAD (coronary artery disease) Father , AT AGE 85 CAD (coronary artery disease) RENAL FAILURE Social History (Updated 02/10/21 @ 09:02 by Sukhdev Stoddard MD) Smoking and tobacco status: former smoker Alcohol intake: current Alcohol intake frequency: 0-2 Drinks per Day Adopted: No Caregiver/support person: No Marital status: Single Current occupational status: retired Physical Exam Const: COMMON NORMALS: no acute distress, average body habitus, patient oriented x3, no limitations, healthy appearing, alert and well nourished GENERAL APPEARANCE: cooperative, comfortable, well kempt and well developed ORIENTATION/CONSCIOUSNESS: Yes awake, Yes oriented to person, Yes oriented to place and Yes oriented to time HENMT: COMMON NORMALS: normocephalic, external ears normal and Normal external nose present HEAD & SCALP: normal to inspection and normocephalic NOSE: Normal external nose present EXTERNAL EAR: Yes external ears normal MOUTH: Normal oral and palatal mucosa present THROAT: posterior oropharynx normal Eye: COMMON NORMALS: Equal, round and reactive pupils present and EOMs intact bilaterally GENERAL EYE: appearance normal, both eyes and all related structures PUPIL: Yes Equal, round and reactive pupils present Neck/C-Spine: COMMON NORMALS: full ROM, no lymphadenopathy, no meningeal signs and no JVD GENERAL: Yes normal visual inspection Lymph: LYMPHATIC: no lymphadenopathy noted Chest: COMMONS NORMALS: normal inspection of the chest and normal palpation of entire chest wall Resp: COMMON NORMALS: normal respiratory effort, No retractions, No use of accessory muscles, clear to auscultation bilaterally and percussion normal EFFORT & INSPECTION: Yes able to speak in complete sentences AUSCULTATION: clear to auscultation bilaterally PERCUSSION: percussion normal Cardio: COMMON NORMALS: no JVD, regular rate, regular rhythm, S1 normal heart sound present, S2 normal heart sound present and Peripheral pulses 2+ throughout RATE: regular rate RHYTHM: regular rhythm HEART SOUNDS: S1 normal heart sound present and S2 normal heart sound present PERIPHERAL PULSES: Peripheral pulses 2+ throughout GI: COMMON NORMALS: Normal to inspection, nondistended, normoactive bowel sounds present, Soft to palpation, non-tender and no masses INSPECTION: Yes normal to inspection PALPATION: Yes Soft to palpation : COMMON NORMALS: Yes no CVA tenderness BLADDER/KIDNEY EXAM: Yes no CVA tenderness Back/Pelvis: COMMON NORMALS: no CVA tenderness, thoracic and lumbar spine normal to inspection, no thoracic nor lumbar tenderness and thoraco-lumbar ROM normal Extremity: COMMON NORMALS: normal to inspection, full ROM, capillary refill normal, no joint enlargement and no pedal edema GENERAL: Yes normal exam except as noted Neuro: COMMON NORMALS: patient oriented x3, CN's II-XII intact bilaterally, moves all extremities, no focal motor deficits, no sensory deficits noted and gait normal SENSORIUM/ORIENTATION: Yes alert, Yes oriented to person, Yes oriented to place and Yes oriented to time MENINGEAL SIGNS: Yes no meningeal signs Psych: COMMON NORMALS: mental status grossly normal, Normal thought process present, cooperative, normal affect and speech normal APPEARANCE: Yes well kempt ATTITUDE: Yes calm SPEECH: Yes normal speech THOUGHT PROCESS: Normal thought process present Skin: COMMON NORMALS: no rashes or lesions noted GENERAL SKIN EXAM: no rashes or lesions noted Course Vital Signs: Vital signs: Vital Signs Temperature 97.9 F 02/23/21 19:54 Pulse Rate 86 02/23/21 21:56 Respiratory Rate 21 H 02/23/21 21:56 Blood Pressure 140/93 02/23/21 21:56 Pulse Oximetry 96 02/23/21 21:56 MDM - General Adult MDM Narrative: Medical decision making narrative: This patient came in with multiple vague complaints. They were initially difficult to understand however his lab work did show a UTI which brings it altogether. He was complaining of chills and having urinary symptoms. He was given 1 g of IV ceftriaxone, IV fluids and he will be discharged with Keflex. He also chronically has a history of metastatic cancer and I recommended he follow-up with his primary care physician in few days to monitor improvement of his symptoms and continue to care for that chronically. Return to the ER with worsening symptoms. He also has chronic hypertension. I recommended he check his blood pressure multiple times a day and write them down in a diary and bring it to his primary care physician at the follow-up in a few days. He is asymptomatic of this elevated blood pressure Lab Data: Labs: Lab Results 02/23/21 02/23/21 02/23/21 Range/Units 20:06 20:06 20:06 WBC 3.8 L (4.0-10.0) 10^3/ uL RBC 4.58 (4.1-5.3) 10^6/u L Hgb 13.7 (11.7-16.6) g/dL Hct 42.6 (42.0-52.0) % MCV 93.0 (80-94) fL MCH 29.9 (28.0-34.0) pg MCHC 32.2 (30.0-36.0) g/dL RDW 15.5 H (12.1-15.1) % Plt Count 193 (130-400) 10^3/c mm MPV 12.0 H (7.4-10.4) fL Neut % (Auto) 65.9 % Lymph % (Auto) 19.8 % [place] % (Auto) 9.5 % Eos % (Auto) 3.4 % Baso % (Auto) 1.1 % Neut # (Auto) 2.50 (1.8-7.7) 10^3/u L Lymph # (Auto) 0.8 (0.8-4.8) 10^3/u L [place] # (Auto) 0.4 (0.2-0.9) 10^3/u L Eos # (Auto) 0.1 (0.0-0.8) 10^3/u L Baso # (Auto) 0.0 (0.0-0.1) 10^3/u L Nucleated RBC % (a uto) 0 % Nucleated RBCs # 0.0 /100WBC Sodium 138 (136-145) mmol/L Potassium 4.0 (3.5-5.1) mmol/L Chloride 102 (98-107) mmol/L Carbon Dioxide 25 (22-29) mmol/L Anion Gap 15.0 (5-19) BUN 12 (8-23) mg/dL Creatinine 1.2 (0.7-1.2) mg/dL GFR Calculation Not Reportable Glucose 91 (65-115) mg/dL Calculated Osmolal ity 285 (285-295) mOsm/k g Lactate 1.1 (0.5-2.2) mmol/L Calcium 9.7 (8.5-10.5) mg/dL Total Bilirubin 0.7 (0.15-1.2) mg/dL AST 42 H (0-40) U/L ALT 19 (0-41) U/L Alkaline Phosphata se 78 (40-130) IU/L Total Protein 8.1 (6.6-8.7) g/dL Albumin 4.6 (3.5-5.2) g/dL Globulin 3.5 (1.3-4.6) g/dL TSH 74.49 H (0.27-4.20) uIU/ mL Urine Color (Yellow) Urine Appearance (CLEAR) Urine pH (5-7) Ur Specific Gravit y (1.005-1.030) Urine Protein (Negative) Urine Glucose (UA) (Normal) Urine Ketones (Negative) Urine Blood (Negative) Urine Nitrate (Negative) Urine Bilirubin (Negative) Urine Urobilinogen (Negative) mg/dL Ur Leukocyte Herlinda ase (Negative) Urine RBC (0-2) /hpf Urine WBC (0-5) /hpf Ur Squamous Epith Cells (0-5) /hpf Amorphous Sediment Urine Bacteria (NONE) /hpf 02/23/21 Range/Units 21:20 WBC (4.0-10.0) 10^3/ uL RBC (4.1-5.3) 10^6/u L Hgb (11.7-16.6) g/dL Hct (42.0-52.0) % MCV (80-94) fL MCH (28.0-34.0) pg MCHC (30.0-36.0) g/dL RDW (12.1-15.1) % Plt Count (130-400) 10^3/c mm MPV (7.4-10.4) fL Neut % (Auto) % Lymph % (Auto) % [place] % (Auto) % Eos % (Auto) % Baso % (Auto) % Neut # (Auto) (1.8-7.7) 10^3/u L Lymph # (Auto) (0.8-4.8) 10^3/u L [place] # (Auto) (0.2-0.9) 10^3/u L Eos # (Auto) (0.0-0.8) 10^3/u L Baso # (Auto) (0.0-0.1) 10^3/u L Nucleated RBC % (a uto) % Nucleated RBCs # /100WBC Sodium (136-145) mmol/L Potassium (3.5-5.1) mmol/L Chloride (98-107) mmol/L Carbon Dioxide (22-29) mmol/L Anion Gap (5-19) BUN (8-23) mg/dL Creatinine (0.7-1.2) mg/dL GFR Calculation Glucose (65-115) mg/dL Calculated Osmolal ity (285-295) mOsm/k g Lactate (0.5-2.2) mmol/L Calcium (8.5-10.5) mg/dL Total Bilirubin (0.15-1.2) mg/dL AST (0-40) U/L ALT (0-41) U/L Alkaline Phosphata se (40-130) IU/L Total Protein (6.6-8.7) g/dL Albumin (3.5-5.2) g/dL Globulin (1.3-4.6) g/dL TSH (0.27-4.20) uIU/ mL Urine Color Yellow (Yellow) Urine Appearance Sl cloudy A (CLEAR) Urine pH 7 (5-7) Ur Specific Gravit y 1.005 (1.005-1.030) Urine Protein Neg (Negative) Urine Glucose (UA) Norm (Normal) Urine Ketones Negative (Negative) Urine Blood 2+ H (Negative) Urine Nitrate Negative (Negative) Urine Bilirubin Neg (Negative) Urine Urobilinogen Norm (Negative) mg/dL Ur Leukocyte Herlinda ase 2+ H (Negative) Urine RBC 5-10 H (0-2) /hpf Urine WBC 40-55 H (0-5) /hpf Ur Squamous Epith Cells 0-4 H (0-5) /hpf Amorphous Sediment Not Reportable Urine Bacteria 1+ H (NONE) /hpf Discharge Plan Discharge Patient Disposition: Home Clinical Impression: Acute UTI, Hypertension Condition: Stable Prescriptions: New cephalexin 500 mg capsule 500 mg PO BID 10 Days Qty: 20 RF: 0 No Action multivitamin Tablet 1 tab PO DAILY RF: 0 lorazepam 1 mg Tablet 0.5 - 1 mg PO TID PRN (Reason: Nausea) RF: 0 levothyroxine 50 mcg Tablet 50 mcg PO QAM Qty: 30 RF: 0 losartan 50 mg Tablet 50 mg PO PRN RF: 0 Tylenol Extra Strength 500 mg Tablet 500 mg PO PRN RF: 0 levothyroxine 100 mcg tablet 100 mcg PO DAILY RF: 0 ibuprofen 200 mg Tablet 200 mg PO PRN RF: 0 Probiotic 1 cap PO DAILY RF: 0 Discharge Orders: Discharge ED (Routine); Ordered 02/24/21 Ordered By: Clemente Mulligan Referrals: Abdifatah Sanchez MD [Primary Care Provider] - Discharge Diet: Advance as tolerated Discharge Activity: Resume usual activity Patient Instructions: Opioid Safety, Urinary Tract Infection - Men Activity Restrictions/Additional Instructions: The likely cause of your chills and weakness is from a urinary tract infection. We have given you an antibiotic in the emergency room and I am sending you home with 10 days of pills. Please take them as directed. Follow-up with your primary care physician in a couple days to monitor improvement of your symptoms and return to the ER with worsening symptoms. Also keep track of your blood pressure and take your blood pressure and write them down in a diary and bring that to your primary care physician Saturday as your blood pressure has been elevated here. Coding Level of Care Code ED Lubrication Worker for Sena Borden
[2021-02-24 01:15] VITALS: BP 114/72; PULSE 63; RESP 14; O2SAT 97
== END 2021-02-24 01:37 | disposition home or self-care (01) ==
PROVIDERS: Emergency Provider Family Medicine; PCP Family Medicine
DX: N39.0 Urinary tract infection, site not specified (principal); I10 Essential (primary) hypertension; Z79.1 Long term (current) use of non-steroidal anti-inflammatories (NSAID); Z85.118 Personal history of other malignant neoplasm of bronchus and lung; Z85.828 Personal history of other malignant neoplasm of skin; N40.0 Benign prostatic hyperplasia without lower urinary tract symptoms; Z87.891 Personal history of nicotine dependence; I25.10 Atherosclerotic heart disease of native coronary artery without angina pectoris; K21.9 Gastro-esophageal reflux disease without esophagitis
CPT/HCPCS: 71045; 74176; 80053; 81001; 83605; 84443; 85025; 87086; 96365; 96375; 99284; J0696; J2405; J7030

== ENCOUNTER 2021-02-26 04:34 | Emergency (ER) | payer MEDICARE, OTHER, SELFPAY ==
[2021-02-26 04:43] VITALS: BP 150/83; PULSE 81; RESP 15; TEMP 36.4; O2SAT 100; BMI 26.5
[2021-02-26 05:15] VITALS: BP 148/80; PULSE 74; RESP 18; O2SAT 98
[2021-02-26 05:32] VITALS: RESP 20
[2021-02-26] MEDS: morphine 4 mg/mL SDV 1 mL IVP (05:32)
[2021-02-26] MEDS: ondansetron 2 mg/ML SDV 2 mL 4 MG IVP (05:32)
[2021-02-26 05:35] LABS: Eosinophils # 0.1 10^3/uL (0.0-0.8); Eosinophils % 3.4 %; Hematocrit 38.6 % (42.0-52.0); Hemoglobin 12.5 g/dL (11.7-16.6); Lymphocytes # 0.9 10^3/uL (0.8-4.8); Lymphocytes % 24.3 %; Mean Corpuscular HGB Conc 32.4 g/dL (30.0-36.0); Mean Corpuscular Volume 92.6 fL (80-94); Mean Platelet Volume 11.5 fL (7.4-10.4); Monocytes # 0.5 10^3/uL (0.2-0.9); Monocytes % 12.3 %; Neutrophils # 2.24 10^3/uL (1.8-7.7); Neutrophils % 58.7 %; Nucleated Red Blood Cells % 0 %; Platelet Count 180 10^3/cmm (130-400); Red Blood Count 4.17 10^6/uL (4.1-5.3); Red Cell Distribution Width 15.5 % (12.1-15.1); White Blood Count 3.8 10^3/uL (4.0-10.0)
--- NOTE | 2021-02-26 05:36 | ED_ITS ---
Documented by User: Mathieu Chisholm DO 02/26/21 18:46 HPI - Male Genitourinary General: Chief complaint: Urogenital-Male Stated complaint: kidney pain Time Seen by Provider: 02/26/21 04:57 History of Present Illness: HPI Narrative: 70-year-old gentleman who is here on 02/24. He had had a head injury at that point was dizzy and falling. He complains this morning of right-sided flank pain that is difficult to reproduce. He notes with lying in a certain position it is quite painful. The pain radiates forward a bit, but not into his pelvis or inguinal region. He denies fever. He states he was told he may have a urinary tract infection when he was here prior. Mild nausea. No vomiting. MD Complaint: other Onset (ago): hour(s) Duration: intermittent Location: right flank Severity: moderate Quality: stabbing Relieving factors: none Exacerbating factors: movement Associated symptoms: Deny discharge, dysuria, fevers/chills, hematuria, nausea o r vomiting Review of Systems Const: Reports: chills; Denies: fever(s) Eyes: Denies: change in vision ENMT: Reports: other ( ); Denies: throat pain, uvular edema or swelling of lips/tongue Card: Denies: chest pain, palpitations or edema Resp: Denies: dyspnea, productive cough or non-productive cough GI: Denies: nausea or vomiting : Denies: dysuria or hematuria Musc: Denies: neck pain or back pain Neuro: Reports: dizziness; Denies: headache(s) Psych: Denies: anxiety PFSH ED PFSH: Medical History (Updated 02/26/21 @ 07:06 by Andrew Owens DO) Basal cell carcinoma of skin of scalp and neck BPH (benign prostatic hyperplasia) CAD (coronary artery disease) GERD (gastroesophageal reflux disease) HTN (hypertension) Left ureteral stone HX OF URETEROSCOPY WITH STONE MANIPULATION Malignant neoplasm of middle lobe bronchus Surgical History (Updated 02/10/21 @ 09:01 by Sukhdev Stoddard MD) Hx of heart artery stent Hx of left inguinal hernia repair Family History Mother Stroke CAD (coronary artery disease) Father , AT AGE 85 CAD (coronary artery disease) RENAL FAILURE Social History (Updated 02/10/21 @ 09:02 by Sukhdev Stoddard MD) Smoking and tobacco status: former smoker Alcohol intake: current Alcohol intake frequency: 0-2 Drinks per Day Adopted: No Caregiver/support person: No Marital status: Single Current occupational status: retired Physical Exam Const: COMMON NORMALS: no acute distress and alert GENERAL APPEARANCE: cooperative HENMT: THROAT: no uvular edema OTHER: Sutures present in the lateral right periorbital region. No cellulitis. No drainage. Eye: COMMON NORMALS: Equal, round and reactive pupils present and EOMs intact bilaterally PUPIL: Yes Equal, round and reactive pupils present Chest: CHEST: Yes abnormal inspection of the chest GI: COMMON NORMALS: Normal to inspection, nondistended, normoactive bowel sounds present, Soft to palpation and no masses PALPATION: Yes Soft to palpation : COMMON NORMALS: Yes no CVA tenderness (Pain not reproducible) BLADDER/KIDNEY EXAM: Yes no CVA tenderness (Pain not reproducible) Back/Pelvis: COMMON NORMALS: no CVA tenderness (Pain not reproducible) Neuro: SENSORIUM/ORIENTATION: Yes alert Skin: COMMON NORMALS: no rashes or lesions noted GENERAL SKIN EXAM: no rashes or lesions noted Course Vital Signs: Vital signs: Vital Signs Temperature 97.6 F 02/26/21 07:13 Pulse Rate 67 02/26/21 07:13 Respiratory Rate 18 02/26/21 07:13 Blood Pressure 171/95 02/26/21 07:13 Pulse Oximetry 96 02/26/21 07:13 MDM - Male MDM Narrative: Medical decision making narrative: Patient checked out at change of shift to Dr. Owens. Lab Data: Labs: Lab Results 02/26/21 02/26/21 02/26/21 Range/Units 05:15 05:15 05:15 WBC 3.8 L (4.0-10.0) 10^3/ uL RBC 4.17 (4.1-5.3) 10^6/u L Hgb 12.5 (11.7-16.6) g/dL Hct 38.6 L (42.0-52.0) % MCV 92.6 (80-94) fL MCH 30.0 (28.0-34.0) pg MCHC 32.4 (30.0-36.0) g/dL RDW 15.5 H (12.1-15.1) % Plt Count 180 (130-400) 10^3/c mm MPV 11.5 H (7.4-10.4) fL Neut % (Auto) 58.7 % Lymph % (Auto) 24.3 % Davidson % (Auto) 12.3 % Eos % (Auto) 3.4 % Baso % (Auto) 1.0 % Neut # (Auto) 2.24 (1.8-7.7) 10^3/u L Lymph # (Auto) 0.9 (0.8-4.8) 10^3/u L Davidson # (Auto) 0.5 (0.2-0.9) 10^3/u L Eos # (Auto) 0.1 (0.0-0.8) 10^3/u L Baso # (Auto) 0.0 (0.0-0.1) 10^3/u L Nucleated RBC % (a uto) 0 % Nucleated RBCs # 0.0 /100WBC Sodium 137 (136-145) mmol/L Potassium 3.8 (3.5-5.1) mmol/L Chloride 103 (98-107) mmol/L Carbon Dioxide 23 (22-29) mmol/L Anion Gap 14.8 (5-19) BUN 12 (8-23) mg/dL Creatinine 1.1 (0.7-1.2) mg/dL GFR Calculation Not Reportable Glucose 82 (65-115) mg/dL Calculated Osmolal ity 283 L (285-295) mOsm/k g Lactate 0.9 (0.5-2.2) mmol/L Calcium 8.7 (8.5-10.5) mg/dL Total Bilirubin 0.6 (0.15-1.2) mg/dL AST 38 (0-40) U/L ALT 17 (0-41) U/L Alkaline Phosphata se 74 (40-130) IU/L C-Reactive Protein 1.1 (0.0-4.9) mg/L Total Protein 7.8 (6.6-8.7) g/dL Albumin 4.5 (3.5-5.2) g/dL Globulin 3.3 (1.3-4.6) g/dL Lipase 30 (13-60) U/L Urine Color (Yellow) Urine Appearance (CLEAR) Urine pH (5-7) Ur Specific Gravit y (1.005-1.030) Urine Protein (Negative) Urine Glucose (UA) (Normal) Urine Ketones (Negative) Urine Blood (Negative) Urine Nitrate (Negative) Urine Bilirubin (Negative) Urine Urobilinogen (Negative) mg/dL Ur Leukocyte Herlinda ase (Negative) Urine RBC (0-2) /hpf Urine WBC (0-5) /hpf Ur Squamous Epith Cells (0-5) /hpf Amorphous Sediment Urine Bacteria (NONE) /hpf 02/26/21 Range/Units 05:40 WBC (4.0-10.0) 10^3/ uL RBC (4.1-5.3) 10^6/u L Hgb (11.7-16.6) g/dL Hct (42.0-52.0) % MCV (80-94) fL MCH (28.0-34.0) pg MCHC (30.0-36.0) g/dL RDW (12.1-15.1) % Plt Count (130-400) 10^3/c mm MPV (7.4-10.4) fL Neut % (Auto) % Lymph % (Auto) % Davidson % (Auto) % Eos % (Auto) % Baso % (Auto) % Neut # (Auto) (1.8-7.7) 10^3/u L Lymph # (Auto) (0.8-4.8) 10^3/u L Davidson # (Auto) (0.2-0.9) 10^3/u L Eos # (Auto) (0.0-0.8) 10^3/u L Baso # (Auto) (0.0-0.1) 10^3/u L Nucleated RBC % (a uto) % Nucleated RBCs # /100WBC Sodium (136-145) mmol/L Potassium (3.5-5.1) mmol/L Chloride (98-107) mmol/L Carbon Dioxide (22-29) mmol/L Anion Gap (5-19) BUN (8-23) mg/dL Creatinine (0.7-1.2) mg/dL GFR Calculation Glucose (65-115) mg/dL Calculated Osmolal ity (285-295) mOsm/k g Lactate (0.5-2.2) mmol/L Calcium (8.5-10.5) mg/dL Total Bilirubin (0.15-1.2) mg/dL AST (0-40) U/L ALT (0-41) U/L Alkaline Phosphata se (40-130) IU/L C-Reactive Protein (0.0-4.9) mg/L Total Protein (6.6-8.7) g/dL Albumin (3.5-5.2) g/dL Globulin (1.3-4.6) g/dL Lipase (13-60) U/L Urine Color Yellow (Yellow) Urine Appearance Clear (CLEAR) Urine pH 5 (5-7) Ur Specific Gravit y 1.010 (1.005-1.030) Urine Protein Neg (Negative) Urine Glucose (UA) Norm (Normal) Urine Ketones Negative (Negative) Urine Blood 3+ H (Negative) Urine Nitrate Negative (Negative) Urine Bilirubin Neg (Negative) Urine Urobilinogen Norm (Negative) mg/dL Ur Leukocyte Herlinda ase 1+ H (Negative) Urine RBC 15-25 H (0-2) /hpf Urine WBC 10-15 H (0-5) /hpf Ur Squamous Epith Cells 0-4 H (0-5) /hpf Amorphous Sediment Not Reportable Urine Bacteria Trace (NONE) /hpf Discharge Plan Discharge Patient Disposition: Home Clinical Impression: Fall, Back pain, Malignant neoplasm of bronchus, Urinary tract infection Condition: Stable Prescriptions: New hydrocodone-acetaminophen 5-325 mg tablet 1 tab PO Q6H PRN (Reason: pain) Qty: 25 RF: 0 No Action multivitamin Tablet 1 tab PO DAILY RF: 0 lorazepam 1 mg Tablet 0.5 - 1 mg PO TID PRN (Reason: Nausea) RF: 0 levothyroxine 50 mcg Tablet 50 mcg PO QAM Qty: 30 RF: 0 losartan 50 mg Tablet 50 mg PO PRN RF: 0 Tylenol Extra Strength 500 mg Tablet 500 mg PO PRN RF: 0 levothyroxine 100 mcg tablet 100 mcg PO DAILY RF: 0 ibuprofen 200 mg Tablet 200 mg PO PRN RF: 0 Probiotic 1 cap PO DAILY RF: 0 cephalexin 500 mg capsule 500 mg PO BID 10 Days Qty: 20 RF: 0 Discharge Orders: Discharge ED (Routine); Ordered 02/26/21 Ordered By: Andrew Owens Referrals: Abdifatah Sanchez MD [Primary Care Provider] - Discharge Diet: Usual diet Discharge Activity: Resume usual activity Patient Instructions: Opioid Safety Activity Restrictions/Additional Instructions: Follow-up with Dr. Brower later this week. Sign Out Sign Out Data: Patient Sign Out occurred on 02/26/21 at 06:45. Patient's care was discussed, and care was transferred from to Andrew Owens DO. Coding Level of Care Code ED Box Covering Machine Operator for Chg Fwd Exam Detailed Documented by User: Andrew Owens DO 02/26/21 07:27 HPI - Male Genitourinary General: Chief complaint: Urogenital-Male Stated complaint: kidney pain Time Seen by Provider: 02/26/21 04:57 PFSH ED PFSH: Medical History (Updated 02/26/21 @ 07:06 by Andrew Owens DO) Basal cell carcinoma of skin of scalp and neck BPH (benign prostatic hyperplasia) CAD (coronary artery disease) GERD (gastroesophageal reflux disease) HTN (hypertension) Left ureteral stone HX OF URETEROSCOPY WITH STONE MANIPULATION Malignant neoplasm of middle lobe bronchus Surgical History (Updated 02/10/21 @ 09:01 by Sukhdev Stoddard MD) Hx of heart artery stent Hx of left inguinal hernia repair Family History Mother Stroke CAD (coronary artery disease) Father , AT AGE 85 CAD (coronary artery disease) RENAL FAILURE Social History (Updated 02/10/21 @ 09:02 by Sukhdev Stoddard MD) Smoking and tobacco status: former smoker Alcohol intake: current Alcohol intake frequency: 0-2 Drinks per Day Adopted: No Caregiver/support person: No Marital status: Single Current occupational status: retired Course Vital Signs: Vital signs: Vital Signs Temperature 97.6 F 02/26/21 07:13 Pulse Rate 67 02/26/21 07:13 Respiratory Rate 18 02/26/21 07:13 Blood Pressure 171/95 02/26/21 07:13 Pulse Oximetry 96 02/26/21 07:13 MDM - Male MDM Narrative: Medical decision making narrative: Care assumed at change of shift. Patient's white count is normal he does have some blood in his urine but he self caths which I think is the source of that. 3 days ago he was in the emergency room given Keflex urine culture shows probable contaminant. He is still taking it. CT done at that time did not show anything acute there is no sign of ureterolithiasis. He does have a renal stone but it is not in the ureter. He is not really taking anything for pain. We will go and start him on hydrocodone have him follow-up with Dr. Brower later this week he may need further advanced imaging or evaluation if there is signs of further metastasis. Return if has problems. Lab Data: Labs: Lab Results 02/26/21 02/26/21 02/26/21 Range/Units 05:15 05:15 05:15 WBC 3.8 L (4.0-10.0) 10^3/ uL RBC 4.17 (4.1-5.3) 10^6/u L Hgb 12.5 (11.7-16.6) g/dL Hct 38.6 L (42.0-52.0) % MCV 92.6 (80-94) fL MCH 30.0 (28.0-34.0) pg MCHC 32.4 (30.0-36.0) g/dL RDW 15.5 H (12.1-15.1) % Plt Count 180 (130-400) 10^3/c mm MPV 11.5 H (7.4-10.4) fL Neut % (Auto) 58.7 % Lymph % (Auto) 24.3 % Davidson % (Auto) 12.3 % Eos % (Auto) 3.4 % Baso % (Auto) 1.0 % Neut # (Auto) 2.24 (1.8-7.7) 10^3/u L Lymph # (Auto) 0.9 (0.8-4.8) 10^3/u L Davidson # (Auto) 0.5 (0.2-0.9) 10^3/u L Eos # (Auto) 0.1 (0.0-0.8) 10^3/u L Baso # (Auto) 0.0 (0.0-0.1) 10^3/u L Nucleated RBC % (a uto) 0 % Nucleated RBCs # 0.0 /100WBC Sodium 137 (136-145) mmol/L Potassium 3.8 (3.5-5.1) mmol/L Chloride 103 (98-107) mmol/L Carbon Dioxide 23 (22-29) mmol/L Anion Gap 14.8 (5-19) BUN 12 (8-23) mg/dL Creatinine 1.1 (0.7-1.2) mg/dL GFR Calculation Not Reportable Glucose 82 (65-115) mg/dL Calculated Osmolal ity 283 L (285-295) mOsm/k g Lactate 0.9 (0.5-2.2) mmol/L Calcium 8.7 (8.5-10.5) mg/dL Total Bilirubin 0.6 (0.15-1.2) mg/dL AST 38 (0-40) U/L ALT 17 (0-41) U/L Alkaline Phosphata se 74 (40-130) IU/L C-Reactive Protein 1.1 (0.0-4.9) mg/L Total Protein 7.8 (6.6-8.7) g/dL Albumin 4.5 (3.5-5.2) g/dL Globulin 3.3 (1.3-4.6) g/dL Lipase 30 (13-60) U/L Urine Color (Yellow) Urine Appearance (CLEAR) Urine pH (5-7) Ur Specific Gravit y (1.005-1.030) Urine Protein (Negative) Urine Glucose (UA) (Normal) Urine Ketones (Negative) Urine Blood (Negative) Urine Nitrate (Negative) Urine Bilirubin (Negative) Urine Urobilinogen (Negative) mg/dL Ur Leukocyte Herlinda ase (Negative) Urine RBC (0-2) /hpf Urine WBC (0-5) /hpf Ur Squamous Epith Cells (0-5) /hpf Amorphous Sediment Urine Bacteria (NONE) /hpf 02/26/21 Range/Units 05:40 WBC (4.0-10.0) 10^3/ uL RBC (4.1-5.3) 10^6/u L Hgb (11.7-16.6) g/dL Hct (42.0-52.0) % MCV (80-94) fL MCH (28.0-34.0) pg MCHC (30.0-36.0) g/dL RDW (12.1-15.1) % Plt Count (130-400) 10^3/c mm MPV (7.4-10.4) fL Neut % (Auto) % Lymph % (Auto) % Davidson % (Auto) % Eos % (Auto) % Baso % (Auto) % Neut # (Auto) (1.8-7.7) 10^3/u L Lymph # (Auto) (0.8-4.8) 10^3/u L Davidson # (Auto) (0.2-0.9) 10^3/u L Eos # (Auto) (0.0-0.8) 10^3/u L Baso # (Auto) (0.0-0.1) 10^3/u L Nucleated RBC % (a uto) % Nucleated RBCs # /100WBC Sodium (136-145) mmol/L Potassium (3.5-5.1) mmol/L Chloride (98-107) mmol/L Carbon Dioxide (22-29) mmol/L Anion Gap (5-19) BUN (8-23) mg/dL Creatinine (0.7-1.2) mg/dL GFR Calculation Glucose (65-115) mg/dL Calculated Osmolal ity (285-295) mOsm/k g Lactate (0.5-2.2) mmol/L Calcium (8.5-10.5) mg/dL Total Bilirubin (0.15-1.2) mg/dL AST (0-40) U/L ALT (0-41) U/L Alkaline Phosphata se (40-130) IU/L C-Reactive Protein (0.0-4.9) mg/L Total Protein (6.6-8.7) g/dL Albumin (3.5-5.2) g/dL Globulin (1.3-4.6) g/dL Lipase (13-60) U/L Urine Color Yellow (Yellow) Urine Appearance Clear (CLEAR) Urine pH 5 (5-7) Ur Specific Gravit y 1.010 (1.005-1.030) Urine Protein Neg (Negative) Urine Glucose (UA) Norm (Normal) Urine Ketones Negative (Negative) Urine Blood 3+ H (Negative) Urine Nitrate Negative (Negative) Urine Bilirubin Neg (Negative) Urine Urobilinogen Norm (Negative) mg/dL Ur Leukocyte Herlinda ase 1+ H (Negative) Urine RBC 15-25 H (0-2) /hpf Urine WBC 10-15 H (0-5) /hpf Ur Squamous Epith Cells 0-4 H (0-5) /hpf Amorphous Sediment Not Reportable Urine Bacteria Trace (NONE) /hpf Discharge Plan Discharge Patient Disposition: Home Clinical Impression: Fall, Back pain, Malignant neoplasm of bronchus, Urinary tract infection Condition: Stable Prescriptions: New hydrocodone-acetaminophen 5-325 mg tablet 1 tab PO Q6H PRN (Reason: pain) Qty: 25 RF: 0 No Action multivitamin Tablet 1 tab PO DAILY RF: 0 lorazepam 1 mg Tablet 0.5 - 1 mg PO TID PRN (Reason: Nausea) RF: 0 levothyroxine 50 mcg Tablet 50 mcg PO QAM Qty: 30 RF: 0 losartan 50 mg Tablet 50 mg PO PRN RF: 0 Tylenol Extra Strength 500 mg Tablet 500 mg PO PRN RF: 0 levothyroxine 100 mcg tablet 100 mcg PO DAILY RF: 0 ibuprofen 200 mg Tablet 200 mg PO PRN RF: 0 Probiotic 1 cap PO DAILY RF: 0 cephalexin 500 mg capsule 500 mg PO BID 10 Days Qty: 20 RF: 0 Discharge Orders: Discharge ED (Routine); Ordered 02/26/21 Ordered By: Andrew Owens Referrals: Abdifatah Sanchez MD [Primary Care Provider] - Discharge Diet: Usual diet Discharge Activity: Resume usual activity Patient Instructions: Opioid Safety Activity Restrictions/Additional Instructions: Follow-up with Dr. Brower later this week. Sign Out Sign Out Data: Patient Sign Out occurred on 02/26/21 at 06:45. Patient's care was discussed, and care was transferred from to Andrew Owens DO. Coding Level of Care Code ED Box Covering Machine Operator for Chg Fwd Exam Detailed
[2021-02-26 06:05] LABS: Lactate (Lactic Acid level) 0.9 mmol/L (0.5-2.2)
[2021-02-26 06:06] LABS: Alanine Aminotransferase 17 U/L (0-41); Albumin Level 4.5 g/dL (3.5-5.2); Alkaline Phosphatase 74 IU/L (40-130); Anion Gap 14.8 (5-19); Aspartate Amino Transferase 38 U/L (0-40); Blood Urea Nitrogen 12 mg/dL (8-23); C Reactive Protein 1.1 mg/L (0.0-4.9); Calcium 8.7 mg/dL (8.5-10.5); Carbon Dioxide 23 mmol/L (22-29); Chloride 103 mmol/L (98-107); Globulin 3.3 g/dL (1.3-4.6); Glucose 82 mg/dL (65-115); Lipase 30 U/L (13-60); Osmolality Calculated 283 mOsm/kg (285-295); Potassium 3.8 mmol/L (3.5-5.1); Sodium 137 mmol/L (136-145); Total Bilirubin 0.6 mg/dL (0.15-1.2); Total Protein 7.8 g/dL (6.6-8.7)
[2021-02-26 06:13] LABS: Glucose Urine UA Norm (Normal); Ketones Urine Negative (Negative); Protein Urine Neg (Negative); Urine Appearance Clear (CLEAR); Urine Color Yellow (Yellow); pH Urine 5 (5-7)
[2021-02-26 06:14] LABS: Add Urine Microscopic? YES; Bilirubin Urine Neg (Negative); Blood Urine 3+ (Negative); Leukocyte Esterase Urine 1+ (Negative); Nitrate Urine Negative (Negative); Urobilinogen Urine Norm (Negative)
[2021-02-26 06:15] VITALS: BP 147/74; PULSE 80; RESP 18; O2SAT 98
[2021-02-26 06:19] LABS: RBC Urine 15-25 /hpf (0-2)
[2021-02-26 06:20] LABS: Add Urine Culture? Yes; Bacteria Urine TRACE /hpf; Squamous Epithelial Cell Urine 0-4 /hpf (0-5)
[2021-02-26 06:51] VITALS: BP 144/89; PULSE 66; RESP 18; O2SAT 98
--- NOTE | 2021-02-26 06:53 | PC.NURSE ---
Received report assumed care, no acute distress noted. Dr Owens in room , assessment completed
[2021-02-26 07:13] VITALS: BP 171/95; PULSE 67; RESP 18; TEMP 36.4; O2SAT 96
== END 2021-02-26 07:20 | disposition home or self-care (01) ==
PROVIDERS: Emergency Medicine; Emergency Provider Family Medicine; PCP Family Medicine
DX: N39.0 Urinary tract infection, site not specified (principal); M54.9 Dorsalgia, unspecified; C34.90 Malignant neoplasm of unspecified part of unspecified bronchus or lung; I25.10 Atherosclerotic heart disease of native coronary artery without angina pectoris; I10 Essential (primary) hypertension; Z87.891 Personal history of nicotine dependence
CPT/HCPCS: 80053; 81001; 83605; 83690; 85025; 86140; 87086; 96374; 96375; 99283; J2270; J2405

== ENCOUNTER 2021-03-08 04:13 | Emergency (ER) | payer MEDICARE, OTHER, SELFPAY ==
[2021-03-08 04:20] VITALS: BP 153/96; PULSE 78; RESP 18; TEMP 36.6; O2SAT 100; BMI 25.8
--- NOTE | 2021-03-08 04:49 | XR_ITS ---
WS: [id number] Portable AP upright chest, 03/08/2021 Clinical Data: back pain; h/o lung cancer Comparison: Portable chest, 02/23/2021. Findings: No nodules, masses or effusions are seen. The heart is normal. The pulmonary vascularity is not increased. No pneumonia or pneumothorax is seen. The aortic arch and descending aorta show mild calcification and tortuosity. XR/XR chest 1V portable [id number] Impression: Atherosclerosis.
--- NOTE | 2021-03-08 04:50 | W.ED.GENADLT ---
Documented by User: Shantanu Trinidad MD 03/08/21 05:56 HPI - General Adult General: Chief complaint: Abdominal Pain Stated complaint: ab pain Time Seen by Provider: 03/08/21 04:16 Source: patient Limitations: no limitations History of Present Illness: HPI narrative: Patient reports exacerbation of chronic pain that he has had for 50 years. He reports the pain is increased since yesterday. He complains of lower thoracic and upper lumbar pain that radiates into the right upper quadrant and right lower quadrant of his abdomen. He states he was rubbing on his thigh when the pain started in his back and abdomen. States he has a history of chronic pain and takes Neurontin and leftover hydrocodone. He denies any trauma. 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 He states he underwent chemotherapy and immune therapy. He states he did have metastasis to his brain that he underwent radiation therapy for about 3 months ago. He has had skin grafts to his right frontal scalp from skin to his left thigh. Onset (ago): day(s) (1) Location: back and abdomen Radiation: abdomen Severity: moderate Quality: aching and sharp Pain Consistency: constant and intermittent Relieving factors: none Exacerbating factors: none Associated symptoms: Reports rash and other (Complaining of a mild blotchy rash to the right anterior thigh. Rash is no); Deny chest pain, confusion, cough, diaphoresis, decreased appetite, dyspnea, fevers/chills, headache(s), malaise, nausea, palpitations, seizures, short of breath, vomiting or weakness Treatments prior to arrival: other (Hydrocodone earlier tonight) Review of Systems Const: Denies: malaise or diaphoresis Eyes: Denies: change in vision ENMT: Denies: throat pain Card: Denies: chest pain or palpitations Resp: Denies: dyspnea GI: Reports: abdominal pain; Denies: nausea or vomiting : Denies: flank pain Musc: Reports: back pain; Denies: neck pain Skin/Breast: Reports: rash and erythema; Denies: pruritus Neuro: Denies: headache(s) or confusion Psych: Denies: anxiety Endo: Denies: polyuria Az/Lymph: Denies: enlarged lymph nodes PFSH ED PFSH: Medical History Basal cell carcinoma of skin of scalp and neck BPH (benign prostatic hyperplasia) CAD (coronary artery disease) GERD (gastroesophageal reflux disease) HTN (hypertension) Left ureteral stone HX OF URETEROSCOPY WITH STONE MANIPULATION Malignant neoplasm of middle lobe bronchus Surgical History Hx of heart artery stent Hx of left inguinal hernia repair Family History Mother Stroke CAD (coronary artery disease) Father , AT AGE 85 CAD (coronary artery disease) RENAL FAILURE Social History (Updated 02/10/21 @ 09:02 by Sukhdev Stoddard MD) Smoking and tobacco status: former smoker Alcohol intake: current Alcohol intake frequency: 0-2 Drinks per Day Adopted: No Caregiver/support person: No Marital status: Single Current occupational status: retired Physical Exam Const: COMMON NORMALS: no acute distress, patient oriented x3, no limitations and well nourished EXAM LIMITATIONS: altered mental status GENERAL APPEARANCE: cooperative HENMT: COMMON NORMALS: normocephalic and atraumatic HEAD & SCALP: normocephalic and atraumatic FACE & SINUS: normal facial exam Eye: COMMON NORMALS: EOMs intact bilaterally Neck/C-Spine: COMMON NORMALS: full ROM, no lymphadenopathy, supple and no meningeal signs GENERAL: Yes normal visual inspection Lymph: LYMPHATIC: no lymphadenopathy noted Chest: COMMONS NORMALS: normal inspection of the chest and normal palpation of entire chest wall CHEST: No Ecchymosis present and No rash Resp: COMMON NORMALS: normal respiratory effort, No retractions and clear to auscultation bilaterally EFFORT & INSPECTION: No respiratory distress AUSCULTATION: clear to auscultation bilaterally Cardio: COMMON NORMALS: regular rate, regular rhythm and Peripheral pulses 2+ throughout JUGULAR VENOUS DISTENTION: no JVD RATE: regular rate RHYTHM: regular rhythm PERIPHERAL PULSES: Peripheral pulses 2+ throughout GI: COMMON NORMALS: Normal to inspection, nondistended, normoactive bowel sounds present and non-tender : COMMON NORMALS: Yes no CVA tenderness BLADDER/KIDNEY EXAM: Yes no CVA tenderness Back/Pelvis: COMMON NORMALS: no CVA tenderness THORACIC SPINE/UPPER BACK: Yes thoracic ROM normal OTHER: Patient has pain to the lower thoracic and upper lumbar spine on the right side along the paraspinous muscles. No rash or deformity noted. No zoster. Previous harvest of skin graft to the left thigh. Patient has a blanching honeycombed red rash to the anterior right thigh is approximately 8 cm long and approximately 4 cm wide that is nontender and nonvesicular. This may be from heating pad. Extremity: COMMON NORMALS: normal to inspection, full ROM and capillary refill normal Neuro: COMMON NORMALS: patient oriented x3, CN's II-XII intact bilaterally, no focal motor deficits and no sensory deficits noted MENINGEAL SIGNS: Yes no meningeal signs SPEECH: speech normal Psych: COMMON NORMALS: mental status grossly normal and Normal thought process present ACTIVITY/MOTOR BEHAVIOR: Yes appropriate eye contact THOUGHT PROCESS: Normal thought process present Skin: COMMON NORMALS: no rashes or lesions noted and no wounds GENERAL SKIN EXAM: no rashes or lesions noted Course Vital Signs: Vital signs: Vital Signs Temperature 97.8 F 03/08/21 04:20 Pulse Rate 80 03/08/21 06:58 Respiratory Rate 16 03/08/21 06:58 Blood Pressure 137/85 03/08/21 06:58 Pulse Oximetry 100 03/08/21 06:58 MDM - General Adult MDM Narrative: Medical decision making narrative: Care has been transitioned to Dr. Mulligan emergency room physician Lab Data: Attestation: I reviewed the patient's lab results. Lab results narrative: Chemistry is normal. Normal renal function. Will obtain CT scan to rule out pathology within the abdomen and lower thoracic and lumbar spine. Labs: Lab Results 03/08/21 03/08/21 03/08/21 Range/Units 05:00 05:00 05:00 WBC 4.1 (4.0-10.0) 10^3/ uL RBC 3.87 L (4.1-5.3) 10^6/u L Hgb 11.7 (11.7-16.6) g/dL Hct 36.0 L (42.0-52.0) % MCV 93.0 (80-94) fL MCH 30.2 (28.0-34.0) pg MCHC 32.5 (30.0-36.0) g/dL RDW 15.6 H (12.1-15.1) % Plt Count 197 (130-400) 10^3/c mm MPV 11.3 H (7.4-10.4) fL Neut % (Auto) 62.4 % Lymph % (Auto) 20.4 % [place] % (Auto) 13.6 % Eos % (Auto) 2.4 % Baso % (Auto) 1.0 % Neut # (Auto) 2.57 (1.8-7.7) 10^3/u L Lymph # (Auto) 0.8 (0.8-4.8) 10^3/u L [place] # (Auto) 0.6 (0.2-0.9) 10^3/u L Eos # (Auto) 0.1 (0.0-0.8) 10^3/u L Baso # (Auto) 0.0 (0.0-0.1) 10^3/u L Nucleated RBC % (a uto) 0 % Nucleated RBCs # 0.0 /100WBC Sodium 137 (136-145) mmol/L Potassium 4.1 (3.5-5.1) mmol/L Chloride 103 (98-107) mmol/L Carbon Dioxide 24 (22-29) mmol/L Anion Gap 14.1 (5-19) BUN 14 (8-23) mg/dL Creatinine 1.2 (0.7-1.2) mg/dL GFR Calculation Not Reportable Glucose 87 (65-115) mg/dL Calculated Osmolal ity 284 L (285-295) mOsm/k g Calcium 8.9 (8.5-10.5) mg/dL Total Bilirubin 0.7 (0.15-1.2) mg/dL AST 29 (0-40) U/L ALT 14 (0-41) U/L Alkaline Phosphata se 69 (40-130) IU/L Total Protein 7.2 (6.6-8.7) g/dL Albumin 4.2 (3.5-5.2) g/dL Globulin 3.0 (1.3-4.6) g/dL Lipase 34 (13-60) U/L Urine Color (Yellow) Urine Appearance (CLEAR) Urine pH (5-7) Ur Specific Gravit y (1.005-1.030) Urine Protein (Negative) Urine Glucose (UA) (Normal) Urine Ketones (Negative) Urine Blood (Negative) Urine Nitrate (Negative) Urine Bilirubin (Negative) Urine Urobilinogen (Negative) mg/dL Ur Leukocyte Herlinda ase (Negative) Urine RBC (0-2) /hpf Urine WBC (0-5) /hpf Ur Squamous Epith Cells (0-5) /hpf Amorphous Sediment Urine Bacteria (NONE) /hpf 03/08/21 Range/Units 06:15 WBC (4.0-10.0) 10^3/ uL RBC (4.1-5.3) 10^6/u L Hgb (11.7-16.6) g/dL Hct (42.0-52.0) % MCV (80-94) fL MCH (28.0-34.0) pg MCHC (30.0-36.0) g/dL RDW (12.1-15.1) % Plt Count (130-400) 10^3/c mm MPV (7.4-10.4) fL Neut % (Auto) % Lymph % (Auto) % [place] % (Auto) % Eos % (Auto) % Baso % (Auto) % Neut # (Auto) (1.8-7.7) 10^3/u L Lymph # (Auto) (0.8-4.8) 10^3/u L [place] # (Auto) (0.2-0.9) 10^3/u L Eos # (Auto) (0.0-0.8) 10^3/u L Baso # (Auto) (0.0-0.1) 10^3/u L Nucleated RBC % (a uto) % Nucleated RBCs # /100WBC Sodium (136-145) mmol/L Potassium (3.5-5.1) mmol/L Chloride (98-107) mmol/L Carbon Dioxide (22-29) mmol/L Anion Gap (5-19) BUN (8-23) mg/dL Creatinine (0.7-1.2) mg/dL GFR Calculation Glucose (65-115) mg/dL Calculated Osmolal ity (285-295) mOsm/k g Calcium (8.5-10.5) mg/dL Total Bilirubin (0.15-1.2) mg/dL AST (0-40) U/L ALT (0-41) U/L Alkaline Phosphata se (40-130) IU/L Total Protein (6.6-8.7) g/dL Albumin (3.5-5.2) g/dL Globulin (1.3-4.6) g/dL Lipase (13-60) U/L Urine Color Yellow (Yellow) Urine Appearance Clear (CLEAR) Urine pH 7 (5-7) Ur Specific Gravit y 1.000 L (1.005-1.030) Urine Protein Neg (Negative) Urine Glucose (UA) Norm (Normal) Urine Ketones Negative (Negative) Urine Blood 3+ H (Negative) Urine Nitrate Negative (Negative) Urine Bilirubin Neg (Negative) Urine Urobilinogen Norm (Negative) mg/dL Ur Leukocyte Herlinda ase Negative (Negative) Urine RBC 10-15 H (0-2) /hpf Urine WBC 0-4 H (0-5) /hpf Ur Squamous Epith Cells 0-4 H (0-5) /hpf Amorphous Sediment Not Reportable Urine Bacteria Trace (NONE) /hpf Imaging Data^: CXR: Attestation: I personally reviewed and interpreted this imaging study as follows: My impression: Portable chest x-ray shows nothing acute except for right perihilar lower pulmonary nodule is likely his previous lung cancer. No pneumothorax or effusion. Discharge Plan Discharge Patient Disposition: Home Clinical Impression: Abdominal pain, acute, right upper quadrant, Abdominal pain, acute, right lower quadrant Condition: Stable Prescriptions: No Action multivitamin Tablet 1 tab PO DAILY RF: 0 lorazepam 1 mg Tablet 0.5 - 1 mg PO TID PRN (Reason: Nausea) RF: 0 levothyroxine 50 mcg Tablet 50 mcg PO QAM Qty: 30 RF: 0 losartan 50 mg Tablet 50 mg PO PRN RF: 0 Tylenol Extra Strength 500 mg Tablet 500 mg PO PRN RF: 0 levothyroxine 100 mcg tablet 100 mcg PO DAILY RF: 0 ibuprofen 200 mg Tablet 200 mg PO PRN RF: 0 Probiotic 1 cap PO DAILY RF: 0 hydrocodone-acetaminophen 5-325 mg tablet 1 tab PO Q6H PRN (Reason: pain) Qty: 25 RF: 0 Discharge Orders: Discharge ED (Routine); Ordered 03/08/21 Ordered By: Clemente Mulligan Referrals: Abdifatah Sanchez MD [Primary Care Provider] - Discharge Diet: Advance as tolerated Discharge Activity: Resume usual activity Patient Instructions: Abdominal Pain (ED), Opioid Safety Activity Restrictions/Additional Instructions: You are experiencing chronic pain. Please go home and take her hydrocodone for this. Also make sure you take a stool softener with it as you are quite constipated. Return to the ER with worsening symptoms otherwise follow-up with your primary care physician in a couple days and Dr. Brower next week. Coding Level of Care Code ED Medical Management Trainer for Chg Fwd Exam Comprehensive Documented by User: Clemente Mulligan MD 03/08/21 07:39 HPI - General Adult General: Chief complaint: Abdominal Pain Stated complaint: ab pain Time Seen by Provider: 03/08/21 04:16 PFSH ED PFSH: Medical History Basal cell carcinoma of skin of scalp and neck BPH (benign prostatic hyperplasia) CAD (coronary artery disease) GERD (gastroesophageal reflux disease) HTN (hypertension) Left ureteral stone HX OF URETEROSCOPY WITH STONE MANIPULATION Malignant neoplasm of middle lobe bronchus Surgical History Hx of heart artery stent Hx of left inguinal hernia repair Family History Mother Stroke CAD (coronary artery disease) Father , AT AGE 85 CAD (coronary artery disease) RENAL FAILURE Social History (Updated 02/10/21 @ 09:02 by Sukhdev Stoddard MD) Smoking and tobacco status: former smoker Alcohol intake: current Alcohol intake frequency: 0-2 Drinks per Day Adopted: No Caregiver/support person: No Marital status: Single Current occupational status: retired Course Vital Signs: Vital signs: Vital Signs Temperature 97.8 F 03/08/21 04:20 Pulse Rate 80 03/08/21 06:58 Respiratory Rate 16 03/08/21 06:58 Blood Pressure 137/85 03/08/21 06:58 Pulse Oximetry 100 03/08/21 06:58 MDM - General Adult MDM Narrative: Medical decision making narrative: Isaak: I took over care of this patient at shift change. He is a 70-year-old male with past medical history cancer and chronic low back pain that radiates to his right abdomen. He has been seen multiple times for this and was recently given hydrocodone. He took 1 of these pills and waited 30 minutes before coming to the ER. He is now says in the ED his pain is better and he is asking for discharge. Recommended he follow-up with primary care physician in a couple days and Dr. Brower next week. They are following him as an outpatient for this pain as well. He does have a history of a stone on the left side but his complaint of pain is on the right side where there is no stone. ER with worsening symptoms at any time Lab Data: Labs: Lab Results 03/08/21 03/08/21 03/08/21 Range/Units 05:00 05:00 05:00 WBC 4.1 (4.0-10.0) 10^3/ uL RBC 3.87 L (4.1-5.3) 10^6/u L Hgb 11.7 (11.7-16.6) g/dL Hct 36.0 L (42.0-52.0) % MCV 93.0 (80-94) fL MCH 30.2 (28.0-34.0) pg MCHC 32.5 (30.0-36.0) g/dL RDW 15.6 H (12.1-15.1) % Plt Count 197 (130-400) 10^3/c mm MPV 11.3 H (7.4-10.4) fL Neut % (Auto) 62.4 % Lymph % (Auto) 20.4 % [place] % (Auto) 13.6 % Eos % (Auto) 2.4 % Baso % (Auto) 1.0 % Neut # (Auto) 2.57 (1.8-7.7) 10^3/u L Lymph # (Auto) 0.8 (0.8-4.8) 10^3/u L [place] # (Auto) 0.6 (0.2-0.9) 10^3/u L Eos # (Auto) 0.1 (0.0-0.8) 10^3/u L Baso # (Auto) 0.0 (0.0-0.1) 10^3/u L Nucleated RBC % (a uto) 0 % Nucleated RBCs # 0.0 /100WBC Sodium 137 (136-145) mmol/L Potassium 4.1 (3.5-5.1) mmol/L Chloride 103 (98-107) mmol/L Carbon Dioxide 24 (22-29) mmol/L Anion Gap 14.1 (5-19) BUN 14 (8-23) mg/dL Creatinine 1.2 (0.7-1.2) mg/dL GFR Calculation Not Reportable Glucose 87 (65-115) mg/dL Calculated Osmolal ity 284 L (285-295) mOsm/k g Calcium 8.9 (8.5-10.5) mg/dL Total Bilirubin 0.7 (0.15-1.2) mg/dL AST 29 (0-40) U/L ALT 14 (0-41) U/L Alkaline Phosphata se 69 (40-130) IU/L Total Protein 7.2 (6.6-8.7) g/dL Albumin 4.2 (3.5-5.2) g/dL Globulin 3.0 (1.3-4.6) g/dL Lipase 34 (13-60) U/L Urine Color (Yellow) Urine Appearance (CLEAR) Urine pH (5-7) Ur Specific Gravit y (1.005-1.030) Urine Protein (Negative) Urine Glucose (UA) (Normal) Urine Ketones (Negative) Urine Blood (Negative) Urine Nitrate (Negative) Urine Bilirubin (Negative) Urine Urobilinogen (Negative) mg/dL Ur Leukocyte Herlinda ase (Negative) Urine RBC (0-2) /hpf Urine WBC (0-5) /hpf Ur Squamous Epith Cells (0-5) /hpf Amorphous Sediment Urine Bacteria (NONE) /hpf 03/08/21 Range/Units 06:15 WBC (4.0-10.0) 10^3/ uL RBC (4.1-5.3) 10^6/u L Hgb (11.7-16.6) g/dL Hct (42.0-52.0) % MCV (80-94) fL MCH (28.0-34.0) pg MCHC (30.0-36.0) g/dL RDW (12.1-15.1) % Plt Count (130-400) 10^3/c mm MPV (7.4-10.4) fL Neut % (Auto) % Lymph % (Auto) % [place] % (Auto) % Eos % (Auto) % Baso % (Auto) % Neut # (Auto) (1.8-7.7) 10^3/u L Lymph # (Auto) (0.8-4.8) 10^3/u L [place] # (Auto) (0.2-0.9) 10^3/u L Eos # (Auto) (0.0-0.8) 10^3/u L Baso # (Auto) (0.0-0.1) 10^3/u L Nucleated RBC % (a uto) % Nucleated RBCs # /100WBC Sodium (136-145) mmol/L Potassium (3.5-5.1) mmol/L Chloride (98-107) mmol/L Carbon Dioxide (22-29) mmol/L Anion Gap (5-19) BUN (8-23) mg/dL Creatinine (0.7-1.2) mg/dL GFR Calculation Glucose (65-115) mg/dL Calculated Osmolal ity (285-295) mOsm/k g Calcium (8.5-10.5) mg/dL Total Bilirubin (0.15-1.2) mg/dL AST (0-40) U/L ALT (0-41) U/L Alkaline Phosphata se (40-130) IU/L Total Protein (6.6-8.7) g/dL Albumin (3.5-5.2) g/dL Globulin (1.3-4.6) g/dL Lipase (13-60) U/L Urine Color Yellow (Yellow) Urine Appearance Clear (CLEAR) Urine pH 7 (5-7) Ur Specific Gravit y 1.000 L (1.005-1.030) Urine Protein Neg (Negative) Urine Glucose (UA) Norm (Normal) Urine Ketones Negative (Negative) Urine Blood 3+ H (Negative) Urine Nitrate Negative (Negative) Urine Bilirubin Neg (Negative) Urine Urobilinogen Norm (Negative) mg/dL Ur Leukocyte Herlinda ase Negative (Negative) Urine RBC 10-15 H (0-2) /hpf Urine WBC 0-4 H (0-5) /hpf Ur Squamous Epith Cells 0-4 H (0-5) /hpf Amorphous Sediment Not Reportable Urine Bacteria Trace (NONE) /hpf Discharge Plan Discharge Patient Disposition: Home Clinical Impression: Abdominal pain, acute, right upper quadrant, Abdominal pain, acute, right lower quadrant Condition: Stable Prescriptions: No Action multivitamin Tablet 1 tab PO DAILY RF: 0 lorazepam 1 mg Tablet 0.5 - 1 mg PO TID PRN (Reason: Nausea) RF: 0 levothyroxine 50 mcg Tablet 50 mcg PO QAM Qty: 30 RF: 0 losartan 50 mg Tablet 50 mg PO PRN RF: 0 Tylenol Extra Strength 500 mg Tablet 500 mg PO PRN RF: 0 levothyroxine 100 mcg tablet 100 mcg PO DAILY RF: 0 ibuprofen 200 mg Tablet 200 mg PO PRN RF: 0 Probiotic 1 cap PO DAILY RF: 0 hydrocodone-acetaminophen 5-325 mg tablet 1 tab PO Q6H PRN (Reason: pain) Qty: 25 RF: 0 Discharge Orders: Discharge ED (Routine); Ordered 03/08/21 Ordered By: Clemente Mulligan Referrals: Abdifatah Sanchez MD [Primary Care Provider] - Discharge Diet: Advance as tolerated Discharge Activity: Resume usual activity Patient Instructions: Abdominal Pain (ED), Opioid Safety Activity Restrictions/Additional Instructions: You are experiencing chronic pain. Please go home and take her hydrocodone for this. Also make sure you take a stool softener with it as you are quite constipated. Return to the ER with worsening symptoms otherwise follow-up with your primary care physician in a couple days and Dr. Brower next week. Coding Level of Care Code ED Medical Management Trainer for [place] Fwd Exam Comprehensive
[2021-03-08 05:05] LABS: Eosinophils # 0.1 10^3/uL (0.0-0.8); Eosinophils % 2.4 %; Hemoglobin 11.7 g/dL (11.7-16.6); Lymphocytes # 0.8 10^3/uL (0.8-4.8); Lymphocytes % 20.4 %; Mean Corpuscular HGB Conc 32.5 g/dL (30.0-36.0); Mean Corpuscular Hemoglobin 30.2 pg (28.0-34.0); Mean Platelet Volume 11.3 fL (7.4-10.4); Monocytes # 0.6 10^3/uL (0.2-0.9); Monocytes % 13.6 %; Neutrophils # 2.57 10^3/uL (1.8-7.7); Neutrophils % 62.4 %; Nucleated Red Blood Cells % 0 %; Platelet Count 197 10^3/cmm (130-400); Red Blood Count 3.87 10^6/uL (4.1-5.3); Red Cell Distribution Width 15.6 % (12.1-15.1); White Blood Count 4.1 10^3/uL (4.0-10.0)
[2021-03-08 05:21] LABS: Alanine Aminotransferase 14 U/L (0-41); Albumin Level 4.2 g/dL (3.5-5.2); Alkaline Phosphatase 69 IU/L (40-130); Anion Gap 14.1 (5-19); Aspartate Amino Transferase 29 U/L (0-40); Blood Urea Nitrogen 14 mg/dL (8-23); Calcium 8.9 mg/dL (8.5-10.5); Carbon Dioxide 24 mmol/L (22-29); Chloride 103 mmol/L (98-107); Glucose 87 mg/dL (65-115); Osmolality Calculated 284 mOsm/kg (285-295); Potassium 4.1 mmol/L (3.5-5.1); Sodium 137 mmol/L (136-145); Total Bilirubin 0.7 mg/dL (0.15-1.2); Total Protein 7.2 g/dL (6.6-8.7)
[2021-03-08 05:23] VITALS: BP 144/92; PULSE 82; RESP 18; O2SAT 100
--- NOTE | 2021-03-08 05:25 | CTR_ITS ---
PROCEDURE INFORMATION: Exam: CT Abdomen And Pelvis With Contrast Exam date and time: 03/08/2021 5:28 AM Age: 70 years old Clinical indication: Abdominal pain; Localized; Prior surgery; Surgery type: Cardiac stents. Hernia repair. ; Patient HX: Right sided abd pain with nausea. History of metastatic cancer TECHNIQUE: Imaging protocol: Computed tomography of the abdomen and pelvis with contrast. Radiation optimization: All CT scans at this facility use at least one of these dose optimization techniques: automated exposure control; mA and/or kV adjustment per patient size (includes targeted exams where dose is matched to clinical indication); or iterative reconstruction. Contrast material: OMNI 300; Contrast volume: 95 ml; Contrast route: INTRAVENOUS (IV); COMPARISON: CT abdomen pelvis wo con [id number] 02/23/2021 11:47 PM RADIATION DOSE METRICS: Total DLP (mGy-cm): 1260.1 FINDINGS: Lungs: The lung bases are clear. No effusion Liver: 3.8 x 3.3 cm enhancing left lobe liver lesion is grossly stable and likely represents a hemangioma. Gallbladder and bile ducts: No wall thickening, pericholecystic fluid or stones. Pancreas: Normal. No ductal dilation. Spleen: Normal. No splenomegaly. Adrenal glands: 2.3 x 2.2 cm nonspecific right adrenal nodule is grossly stable. Kidneys and ureters: Multiple left renal cysts are present, the largest is in the upper pole and measures 5.7 cm. Multiple right renal cysts are present, largest of which is 2.5 cm. Two nonobstructing left renal pelvis stones, largest is 1.3 cm. Stomach and bowel: Stable bilateral inguinal hernias containing nonobstructed loops of small bowel. Moderate to large formed stool in the colon without bowel dilation. Appendix: No evidence of appendicitis. Intraperitoneal space: Unremarkable. No free air. No significant fluid collection. Vasculature: 2.4 cm right common iliac artery aneurysm, stable. Lymph nodes: Unremarkable. No enlarged lymph nodes. Urinary bladder: Unremarkable as visualized. Reproductive: Unremarkable as visualized. Bones/joints: Unremarkable. No acute fracture. Soft tissues: Unremarkable. CT/CT abdomen pelvis w con* [id number] IMPRESSION: 1. 3.8 x 3.3 cm enhancing left lobe liver lesion is grossly stable and likely represents a hemangioma. 2. Stable 2.3 x 2.2 cm nonspecific right adrenal nodule. Recommend further evaluation with dedicated pre and postcontrast adrenal CT or MRI. 3. 2.4 cm right common iliac artery aneurysm, stable. 4. Bilateral inguinal hernias with incarcerated but non strangulated small bowel. 5. Moderate to severe Constipation. COMMENTS: Consistent with the [employer] [place] [employer]'s Incidental Findings Committee white paper (J Am Cat Radiol 2018): Any incidental renal lesion less than 1 cm or classified as too small to characterize, or any incidental cystic renal lesion characterized as simple-appearing, is likely benign. No follow-up imaging is recommended for these lesions per consensus recommendations based on imaging criteria. Radiation Dose CTDIVOL = (mGy): DLP = 1260.1 (mGy-cm)
[2021-03-08] MEDS: iohexol 300 mg/mL 100 mL Btl IV (05:41)
[2021-03-08 05:46] LABS: Lipase 34 U/L (13-60)
[2021-03-08 06:42] LABS: Add Urine Culture? Yes; Bacteria Urine TRACE /hpf; Bilirubin Urine Neg (Negative); Blood Urine 3+ (Negative); Glucose Urine UA Norm (Normal); Ketones Urine Negative (Negative); Leukocyte Esterase Urine Negative (Negative); Nitrate Urine Negative (Negative); Protein Urine Neg (Negative); Squamous Epithelial Cell Urine 0-4 /hpf (0-5); Urine Appearance Clear (CLEAR); Urine Color Yellow (Yellow); Urobilinogen Urine Norm (Negative); WBC Urine 0-4 /hpf (0-5); pH Urine 7 (5-7)
[2021-03-08 06:58] VITALS: BP 137/85; PULSE 80; RESP 16; O2SAT 100
[2021-03-08 07:40] VITALS: BP 126/78; PULSE 78; RESP 14; O2SAT 99
== END 2021-03-08 07:40 | disposition home or self-care (01) ==
PROVIDERS: Family Medicine; Emergency Provider Family Medicine; PCP Family Medicine
DX: R10.31 Right lower quadrant pain (principal); R10.11 Right upper quadrant pain; I25.10 Atherosclerotic heart disease of native coronary artery without angina pectoris; I10 Essential (primary) hypertension; Z85.118 Personal history of other malignant neoplasm of bronchus and lung; Z87.891 Personal history of nicotine dependence
CPT/HCPCS: 71045; 74177; 80053; 81001; 83690; 85025; 87086; 99283; Q9967

== ENCOUNTER 2021-03-15 14:46 | Outpatient (CLI) | payer MEDICARE, OTHER, SELFPAY ==
--- NOTE | 2021-03-28 00:25 | ONC FU_ITS ---
[facility] Patient Note Patient: Logan Maynard Unit #: [id number]: [id number] Dictated By: Dejan LizDate of Visit: Mar 15, 2021 Onc MED Follow-Up/Prog Note Chief Complaint: Lung cancer/basal cell skin cancer. History of Present Illness: Mr Maynard is a 70 year-old man with stage IV non-small cell lung cancer and a locally advanced basal cell carcinoma involving the right frontal scalp. He had initially presented to Dr. Sanchez in July with an enlarging right frontal scalp skin lesion. He was referred to Dr. Pugh and determined on biopsy to have basal cell carcinoma. His subsequent evaluation included a head CT on 09/24/2018 which showed a lobulated right frontal scalp mass measuring 4.5 x 4.2 x 0.7 cm with invasion of the right frontal bone cortex. There was abnormal attenuation noted in the right frontal lobe measuring 4.0 x 3.2 cm. Metastatic or primary brain tumor was suspected, and MRI was recommended. Further evaluation with PET/CT on 10/04/2018 reportedly showed uptake in a right middle lobe lung mass and in right paratracheal and right hilar lymph nodes. There was also uptake in cervical lymph nodes bilaterally. Neck CT on 10/20/2018 showed multiple enlarged pathologic appearing lower cervical level III and level IV lymph nodes as well as enlarged supraclavicular and anterior mediastinal lymph nodes. These corresponded to FDG avid lymph nodes on the PET/CT. 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 The tumor cells showed strong cytoplasmic staining for CK-HMW, moderately strong cytoplasmic staining for CK-CAM 5.2, and strong nuclear positivity for TTF-1. He was then seen by Dr. Harding in [place] for resection of the basal cell carcinoma and he subsequently had pulmonary consultation there with Dr. Brandon Doyle. Repeat PET/CT on 11/13/2018 showed similar findings with FDG avid right middle lobe lung mass measuring 3.6 x 3 cm and hypermetabolic ruba disease which included bilateral lower cervical chain, supraclavicular, mediastinal, and right hilar lymph nodes. There was a questionable tiny focus of hypermetabolic activity in the liver. The irregular skin lesion on the forehead was hypermetabolic and showed evidence of calvarial invasion. Chest CT on 11/17/2018 showed right middle lobe mass measuring 4.1 cm with enlarged mediastinal, right hilar, and supraclavicular lymph nodes. Bilateral subcentimeter pulmonary nodules were too small to characterize. On 11/28/2018 he underwent bronchoscopy with EBUS/FNA of the right middle lobe mass and station 11 R lymph node. The lymph node biopsy was nondiagnostic. Biopsy from the right middle lobe lung mass was positive for adenocarcinoma. It was noted that a very limited amount of tumor was present. PD-L1 testing was going to be attempted, but there was insufficient material present for additional studies. Following the procedure he developed urinary retention, which ultimately did improve with tamsulosin. However, in the meantime, he also developed hypertension. He was admitted to the hospital on 12/09/2017, and his cardiac evaluation at that time was negative for any acute ischemia. He returned to the emergency room one week later with new onset of dizziness and vomiting. CT abdomen/pelvis showed persistent right middle lobe lung mass, measuring about 3 cm. There was partial atelectasis of the right middle lobe and there was additional bilateral lower lobe subsegmental atelectasis and/or interstitial pneumonia. Head CT showed persistent and increased degree of vasogenic edema of the right frontal lobe suggestive of underlying neoplastic process. Irregular marginated frontal scalp lesion showed increased degree of subtle outer table cortical erosion of the underlying right frontal calvarium. He was admitted to the hospital and placed on IV dexamethasone and empiric IV antibiotic coverage with Levaquin. Further evaluation with brain MRI on 12/18/2018 showed a right frontal lobe enhancing neoplastic lesion measuring 1.5 x 1.2 x 1.4 cm. The appearance was suggestive of a solitary metastatic lesion. There was associated vasogenic white matter edema. His symptoms had improved with steroid therapy, and he was discharged home on dexamethasone 4 mg twice a day. He also continued antibiotic coverage with Levaquin. He was then seen by Dr. Munguia and he began electron-beam radiation to the scalp lesion on 12/22/2018. On 12/25/2018 he underwent SRS to the metastatic lesion in the brain, total dose 2000 cGy. He then continued with electron-beam radiation, and he completed treatment to the skin lesion on 01/16/2019, total dose 5500 cGy. In the meantime, I had requested a next generation sequencing study which showed low PD-L1 expression, reported at 10% to 22C3 by IHC. The ALK and ROS 1 gene rearrangements were not detected, and a BRAF mutation was not detected. 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 His other medical illnesses include hypertension, coronary artery disease, hiatal hernia/GERD, and benign prostatic hypertrophy. He has a history of smoking for 27 years, in the range of 2-3 packs of cigarettes daily. He quit smoking in 1992. He currently does not drink alcohol, though he did have significant alcohol use in the past. INTERIM HISTORY: On 02/16/2019 he began cycle 1 of systemic therapy with carboplatin/pemetrexed chemotherapy in combination with pembrolizumab. He tolerated it without significant toxicity. He continued with cycle 2 on 03/11/2019. His CBC at day 8 showed a decrease in his granulocyte count to 900. It resolved uneventfully with Neupogen. He continued with cycle 3 on 03/31/2019 and with cycle 4 on 04/21/2019, both administered with Neulasta prophylactically. Restaging PET/CT on 05/16/2019 showed resolution of the basal cell carcinoma of the right forehead. There was also resolution of bilateral jugulodigastric and supraclavicular lymph nodes compared to the prior study from September 2018. Superior mediastinal, right paratracheal, right parabronchial, and right hilar territory lymph nodes which previously had been prominent were noted to be subcentimeter in size with FDG uptake similar to mediastinal background. A 1.5 cm right paratracheal index lymph node was no longer identified. The 2.3 x 2.1 cm right lung mass was noted to be FDG negative, consistent with a complete response to therapy. He then continued on to maintenance therapy with pembrolizumab 200 mg by IV infusion every 3 weeks. He completed cycle 1 on 05/27/2019 and cycle 2 on 06/16/2019. Restaging MRI of the head on a 2018 showed marginal decrease in the size of the right posterior frontal metastatic lesion compared to the March 2019 study. There was decreased associated white matter edema. There were no new metastatic lesions identified. However, following his cycle 2 pembrolizumab, he developed significant musculoskeletal pain, particularly in the upper extremities. The pain initially improved on prednisone 10 mg twice a day, but they worsened again when the prednisone dosage was tapered down. He opted not to take any further treatment. However, with PET/CT evidence of complete response to treatment, Dr. Munguia had recommended consolidation radiation to the right lung. He ultimately did agree to the treatment, which he completed on 10/26/2019 to a total dose of 6000 cGy. He was then followed on observation/expectant management. As of his follow-up visit in January 2020 he appeared stable clinically but he then failed to return for further follow-up due to the coronavirus pandemic. During that time, he had been seen in [place] for additional surgery, and in May he underwent excision of the remaining lesion in the right frontal calvarium with skin grafting. We did not receive any of those records. He also had seen an telecommunications sales representative for eye pain. He was found to have cataracts and he apparently also had evidence of macular degeneration. He has now undergone cataract excisions. His restaging brain MRI on 11/08/2020 showed multiple new subcentimeter enhancing supratentorial metastatic lesions, estimated at 4 in number. These ranged in size from 4 to 7 mm. Also noted was a new 4.2 mm peripheral enhancing left cerebellar metastatic lesion and there was additional tiny suspected metastatic lesion along the left mid temporal horn. The previously described right posterior frontal lesion was not significantly changed. Restaging CT scans of the chest, abdomen, and pelvis on 11/15/2020 showed a new 2 cm right adrenal nodule which appeared suspicious for a metastatic lesion. A lytic bone lesion involve the right lateral aspect of T8 vertebral body showed mild pathologic compression and also was suspicious for metastatic disease. Also noted were bilateral inguinal hernias containing unobstructed small bowel. Mr Maynard was seen last by Dr Brower for followup on 11/15/2020. He had been referred to radiation oncology for consult for the new areas of brain metastasis. He was seen by Dr. Rafy Ta on November 15, 2020. Dr. Ta did recommend whole brain radiotherapy and then reevaluate for stereotactic radiosurgery based upon repeat imaging. A total dose of 30 Cronin was delivered between November 21, 2020 and December 02, 2020. Mr. Maynard has not returned for any further follow-up since completion of the radiation. An order was placed for MRI of the head with and without contrast to be done 3 months after completion of the radiation. Mr. Alaniz had MRI of the head with and without contrast on 02/10/[address] Lora which reported no significant progression since 11/08/2020. There were no new lesions identified. There was no hemorrhage or midline shift and no hydrocephalus. The posterior right frontal lobe lesion was 10 mm. Central necrosis with peripheral enhancement was noted. Stable amount of surrounding edema. Left cerebral lesion measured 5.5 mm with minimal increase in size. Previously described right frontoparietal lesion appears slightly smaller measuring 2 mm. Posterior right parietal lobe cortical lesion measures 7 mm and unchanged. Again is noted the right medial temporal lobe lesion measuring 4 mm and a possible 2 mm lesion on the medial left temporal horn. There is a stable 2 mm occipital lobe enhancing lesion. Mr. Maynard present emergency room [facility] on 03/08/2021 with complaints of abdominal pain. The ER note indicates that he presented with exacerbation of chronic pain that he has had for 50 years . The pain had increased since the day prior to the visit. It was lower thoracic and upper lumbar pain that radiated to the right upper quadrant and right lower quadrant of his abdomen. He did have CT of the abdomen pelvis with contrast which revealed no findings in the lung. The liver had a 3.8 x 3.3 enhancing left lobe liver lesion which was grossly stable and likely represents a hemangioma. General hands noted at 2.3 x 2.2 cm nonspecific right adrenal nodule is grossly stable. There were multiple left renal cyst present. There are multiple right renal cysts. A 2.4 cm right common iliac artery aneurysm was stable. Bilateral inguinal hernias were noted with incarcerated but not strangulated small bowel. He also had moderate to severe constipation. His labs were within normal limits on 03/08/2021 however it was noted that in February 10, 2021 he had a TSH of 84.23. He had been admitted after a fal/closed head injury. He did not report any thyroid medication at that time. He had been on levothyroxine in the past and had stopped it on his own. Luis Alfredo Michel and had discharged him on 50 mcg levothyroxine daily with instructions to increase it to 100 mcg within 1 week. Repeat TSH on 02/23/2021 was 74.49. Mr. Alaniz is here today for follow-up after his ER visit. He states he feels better than he did on the ER visit. He has been somewhat active around the house. He has done some yard mowing with his riding lawnmower on Saturday. He states he still has some right mid upper quadrant pain that radiates to his back. He states that the gabapentin does help. However when the gabapentin wears off the pain returns. He states his bowels are moving better. He denies any fever or chills. He denies any mouth sores, sore throat or difficulty swallowing. He has had some intermittent shortness of breath but states this is not new. He denies any wheezing, cough or hemoptysis. He states his bowels are moving more regularly and are softer. He has resumed levothyroxine 100 mcg daily and states he is taking it every day. His energy is marginal. His appetite is marginal but is good for the most part . He denies any urinary concerns. He denies any vision changes or headaches. He denies any nausea or vomiting. His ECOG is 1. Past Medical History: Basal cell cancer involving the right frontal scalp Benign prostatic hypertrophy Coronary artery disease Gastroesophageal reflux disease Hiatal hernia Hypertension Past Surgical History: Coronary angioplasty/stent placement Left inguinal hernia repair Open reduction of right forearm fracture Cataracts in 2020 Skin graft to the top of the head in 2020 Bronchoscopy with EBUS/FNA of the right middle lobe mass and station 11 R lymph node in 2019 Biopsy of left lower neck tracheoesophageal groove neck mass in 2018 Allergies: Sulfonylureas Medications: Gabapentin 1 Capsule (of 300 mg) Oral b.i.d. Ibuprofen 2 (200 mg) Tablet Oral PRN MiraLax Pack Oral Probiotic Daily 1 Capsule Oral daily Family History: Mr. Maynard's mother is : stroke. Mr. Maynard's father at age 85: renal failure. Father of renal failure at age 85. His mother in 09/2019. She has had a stroke. Social History: Mr. Maynard is single and he is retired. Mr. Maynard quit smoking 26 years ago but had smoked 3.0 packs/day for 27 years. He is a former drinker. He has a history of smoking for 27 years in the range of 2-3 packs of cigarettes daily. He quit smoking in 1992. He has had alcohol use in the past, as much beer as I could drink . He cut down substantially about 25 years ago, and he currently does not drink alcohol. Review Of Symptoms: <See Above> Vital Signs: Performed on Mar 15, 2021 15:31 Height - 70.00 in Weight - 175.4 lbs (LOW) BSA - 1.97 sq.m BMI - 25.17 Temperature - 98.4 F Pulse - 77 /min Respiration - 19 /min BP - 129/82 mm(hg) O2 Sat - 100 % Pain - 0,1 - No physically strenuous activity, but ambulatory and able to carry out light or sedentary work (e.g. office work, light house work). (ECOG) Physical Examination: Constitutional Alert, oriented, no acute distress. Skin pink, warm and dry. Head Normocephalic; atraumatic. Eyes Conjunctivae and sclerae are clear and without icterus. Pupils are reactive and equal. Neck Supple without masses or thyromegaly. No jugular venous distension. Hematologic/Lymphatic No petechiae or purpura. No tender or palpable lymph nodes in the cervical or supraclavicular areas. Respiratory Lungs are clear to auscultation without rhonchi or wheezing. Cardiovascular Regular rate and rhythm of heart without murmurs,clicks, gallops or rubs. Abdomen Right mid quadrant tenderness and firmness. Back/Spine Non-tender to palpation. Extremities No visible deformities, no cyanosis, clubbing or edema. Musculoskeletal No tenderness or swelling, normal range of motion without obvious weakness. Integumentary No rashes or lesions. Neurologic No sensory or motor deficits, normal cerebellar function, normal gait. Psychiatric Alert and oriented times three. Coherent speech. Verbalizes understanding of our discussions today. Laboratory:see below) Impression: 1. Patient with biopsy-proven non-small cell carcinoma involving the middle lobe of the right lung, stage IV ( T2a, N3, M1b). There was CT evidence of multiple sites of lymph node involvement with biopsy proven involvement in a tracheoesophageal lymph node. There was some discrepancy in the reported histology of the 2 biopsies, but this was likely related to the small sample size of the lung biopsy. 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 The PD-L1 expression was reported low at 10%. 2. There was MRI evidence of solitary brain metastasis involving the right frontal lobe. 3. He also has a locally advanced basal cell skin carcinoma involving the right frontal scalp. His other medical illnesses include: 4. Hypertension. 5. Coronary artery disease with previous myocardial infarction and angioplasty/stent placement. 6. Hiatal hernia/GERD. 7. Benign prostatic hypertrophy with recent urinary retention. e His symptoms improved on steroid therapy. He was then seen Dr. Munguia, and he underwent SRS to the brain metastasis, completed on 12/25/2018 3 total dose of 2000 cGy, and he completed electron beam radiation to the basal cell carcinoma, completed on 01/16/2019 to a total dose of 5500 cGy. On 02/16/2019 he began cycle 1 of systemic therapy with carboplatin/pemetrexed chemotherapy in combination with pembrolizumab. He tolerated it very well. He continued with cycle 2 on 03/11/2019. With that cycle he did have more fatigue, and he developed moderately severe neutropenia. He recovered uneventfully with Neupogen. He was given Neulasta prophylactically with cycle 3 on 03/31/2019 and was cycle 4 on 04/22/2019. His blood counts remained adequate, but he did have multiple other side effects, particularly after his 4th cycle. His restaging PET/CT on 05/16/2019 showed a very good clinical response to the treatment. His treatment was then transitioned to maintenance pembrolizumab, cycle 1 on 05/27/2019. He continued with cycle 2 on 06/16/2019. That treatment was complicated by significant musculoskeletal pain, which had initially improved with steroid therapy. During subsequent followup he had recurrence of the joint pain as his prednisone was tapered. His activity tolerance has been variable. Dr. Munguia had recommended consolidation radiation, as the known areas of involvement in the chest/neck were able to be encompassed within a radiation field. Ultimately he did agree to the treatment, which he completed on 10/26/2019 to a total dose of 6000 cGy. During follow-up he required treatment for nephrolithiasis. He also was found to have hypothyroidism, though his TSH level now is low. His restaging head MRI shows multiple new, small metastatic lesions in the brain. His restaging CT scans show suspected new metastatic involvement in the right adrenal gland. Plan/Problems Addressed at this Visit: Non-small cell carcinoma involving the middle lobe of the right lung stage IV (T2a, N3, M1b). A. I have requested follow-up PET/CT imaging on Mr. Maynard for persistent right mid upper quadrant pain that radiates to his back. He has a history of multiple sites of lymph node involvement in the transesophageal lymph node area. He also has a history of brain metastasis once in 2018 and then again in October 2020. He also has had evidence of right adrenal gland metastasis. B. Labs from the ER from 03/08/2021 reviewed in detail discussed with Mr. Alaniz. WBC 4.1, hemoglobin 11.7, platelets 197,000 ANC was 2600. Potassium 4.1 creatinine 1.2 random glucose 87 LFTs were normal. Follow-up TSH on 02/23/2021 was 74.49. He is on 100 mcg of levothyroxine daily. He indicates that he is followed with Dr. Sanchez for his thyroid. Total time spent with Mr. Maynard's care today including record review prior to his visit, assessment and review of symptoms and formulating plan of care as well as post visit documentation was 60 minutes. Signed By: Dejan Liz-, CNP Gerald Brower MD <<Signature on File>>
== END 2021-03-15 14:47 | disposition home or self-care (01) ==
LOC: ONCMED 14:47
PROVIDERS: PCP Family Medicine; Visit Provider Nurse Practitioner
DX: C44.41 Basal cell carcinoma of skin of scalp and neck (principal); C34.2 Malignant neoplasm of middle lobe, bronchus or lung; C79.31 Secondary malignant neoplasm of brain; C79.51 Secondary malignant neoplasm of bone; I10 Essential (primary) hypertension; I25.10 Atherosclerotic heart disease of native coronary artery without angina pectoris; I25.2 Old myocardial infarction; Z95.5 Presence of coronary angioplasty implant and graft; K44.9 Diaphragmatic hernia without obstruction or gangrene; K21.9 Gastro-esophageal reflux disease without esophagitis; N40.0 Benign prostatic hyperplasia without lower urinary tract symptoms; N39.0 Urinary tract infection, site not specified; N20.0 Calculus of kidney; Z79.899 Other long term (current) drug therapy
CPT/HCPCS: 99214

== ENCOUNTER 2021-03-26 20:59 | Emergency (ER) | payer MEDICARE, OTHER, SELFPAY ==
[2021-03-26 21:09] VITALS: BP 120/77; PULSE 83; RESP 16; TEMP 36.6; O2SAT 100; BMI 23.6
--- NOTE | 2021-03-26 21:35 | XRR_ITS ---
PROCEDURE INFORMATION: Exam: XR Chest Exam date and time: 03/26/2021 9:44 PM Age: 70 years old Clinical indication: Pain; Other: Neck and back; Prior surgery; Surgery type: Stent hernia; Patient HX: Hs of lung and skin cancer, brain mets; Additional info: Pain trouble swallowing, pinch in neck and back TECHNIQUE: Imaging protocol: XR of the chest. Views: 1 view. COMPARISON: CR XR chest 1V portable [id number] 03/08/2021 4:45 AM FINDINGS: Lungs: COPD , interstitial prominence, and right infrahilar airspace disease. Pleural spaces: No pleural effusion. Heart/Mediastinum: No cardiomegaly. Bones/joints: Osteopenia and degenerative change. XR/XR chest 1V portable [id number] IMPRESSION: COPD , interstitial prominence, and right infrahilar airspace disease.
[2021-03-26] MEDS: ondansetron 2 mg/ML SDV 2 mL 4 MG IM (21:45)
--- NOTE | 2021-03-26 22:05 | ED_ITS ---
HPI - General Adult General: Chief complaint: General Medical Stated complaint: trouble swallowing pinch in neck pain in back Time Seen by Provider: 03/26/21 21:17 History of Present Illness: HPI narrative: This pleasant gentleman comes in saying he just cannot hurts in different places at different times. Said his shoulders hurt at times said next hurt his back hurt. Recently just had a PET scan done. Said he has had problems swallowing for months and just comes and goes. Said he took a hydrocodone right before coming here. Denies any other problems. MD complaint: Pain. Onset (ago): month(s) Associated symptoms: Reports no associated symptoms; Deny chest pain, dyspnea, headache(s), nausea, rash or vomiting Review of Systems Const: Denies: fever(s), chills or body aches Eyes: Denies: change in vision or blurry vision ENMT: Reports: other (Is able to swallow but says it has been difficult at times); Denies: throat pain or nasal congestion Card: Denies: chest pain or dyspnea on exertion Resp: Denies: dyspnea, productive cough or non-productive cough GI: Denies: abdominal pain, nausea or vomiting : Denies: difficulty urinating Musc: Reports: neck pain, back pain and extremity pain (Left shoulder, different areas of his back) Skin/Breast: Denies: rash Neuro: Denies: headache(s) Psych: Denies: anxiety or depression Az/Lymph: Denies: easy bruising PFSH ED PFSH: Medical History Basal cell carcinoma of skin of scalp and neck BPH (benign prostatic hyperplasia) CAD (coronary artery disease) GERD (gastroesophageal reflux disease) HTN (hypertension) Left ureteral stone HX OF URETEROSCOPY WITH STONE MANIPULATION Malignant neoplasm of middle lobe bronchus Surgical History Hx of heart artery stent Hx of left inguinal hernia repair Family History Mother Stroke CAD (coronary artery disease) Father , AT AGE 85 CAD (coronary artery disease) RENAL FAILURE Social History (Updated 02/10/21 @ 09:02 by Sukhdev Stoddard MD) Smoking and tobacco status: former smoker Alcohol intake: current Alcohol intake frequency: 0-2 Drinks per Day Adopted: No Caregiver/support person: No Marital status: Single Current occupational status: retired Physical Exam Const: COMMON NORMALS: no acute distress, average body habitus and patient oriented x3 HENMT: COMMON NORMALS: normocephalic, external ears normal and Normal external nose present HEAD & SCALP: normal to inspection and normocephalic FACE & SINUS: normal facial exam NOSE: Normal external nose present EXTERNAL EAR: Yes external ears normal MOUTH: Normal oral and palatal mucosa present THR OAT: posterior oropharynx normal Eye: COMMON NORMALS: conjunctivae normal GENERAL EYE: appearance normal, b oth eyes and all related structures CONJUNCTIVA: Yes conjunctivae normal Neck/C-Spine: COMMON NORMALS: no JVD Chest: COMMONS NORMALS: normal inspection of the chest Resp: COMMON NORMALS: normal respiratory effort and clear to auscultation bilaterally AUSCULTATION: clear to auscultation bilaterally Cardio: COMMON NORMALS: no JVD, regular rate and regular rhythm RATE: regular rate RHYTHM: regular rhythm GI: COMMON NORMALS: Normal to inspection, nondistended, normoactive bowel sounds present Extremity: COMMON NORMALS: normal to inspection and full ROM NARRATIVE EXTREMITY EXAM: Unable to reproduce pain on examination. Neuro: COMMON NORMALS: patient oriented x3 Course Vital Signs: Vital signs: Vital Signs Temperature 98 F 03/26/21 21:09 Pulse Rate 83 03/26/21 21:09 Respiratory Rate 16 03/26/21 21:09 Blood Pressure 120/77 03/26/21 21:09 Pulse Oximetry 100 03/26/21 21:09 MDM - General Adult MDM Narrative: Medical decision making narrative: Patient did complain about nausea x1 and gave him some Zofran to help with that. I looked at the PET scan results and shared results with him that was done on 5 3 patient was unaware results this time. I strongly encourage and follow-up Dr. Brower and discuss pain treatment with Megan Sanchez. Also discussed chronic swallowing problems Dr. Sanchez as he had in the past. Discharge Plan Discharge Patient Disposition: Home Clinical Impression: Metastatic adenocarcinoma, Pain Condition: Stable Prescriptions: No Action multivitamin Tablet 1 tab PO DAILY RF: 0 lorazepam 1 mg Tablet 0.5 - 1 mg PO TID PRN (Reason: Nausea) RF: 0 levothyroxine 50 mcg Tablet 50 mcg PO QAM Qty: 30 RF: 0 losartan 50 mg Tablet 50 mg PO PRN RF: 0 Tylenol Extra Strength 500 mg Tablet 500 mg PO PRN RF: 0 levothyroxine 100 mcg tablet 100 mcg PO DAILY RF: 0 ibuprofen 200 mg Tablet 200 mg PO PRN RF: 0 Probiotic 1 cap PO DAILY RF: 0 hydrocodone-acetaminophen 5-325 mg tablet 1 tab PO Q6H PRN (Reason: pain) Qty: 25 RF: 0 Discharge Orders: Discharge ED (Routine); Ordered 03/26/21 Ordered By: Jonah Iverson Referrals: Abdifatah Sanchez MD [Primary Care Provider] - Discharge Diet: Usual diet Discharge Activity: Resume usual activity Patient Instructions: Opioid Safety Activity Restrictions/Additional Instructions: Contact Dr. Brower's office tomorrow follow-up on PET scan results. Continue taking present but pain medication prescription you have. Contacted Dr. Sanchez's office and discuss chronic swelling problems. Coding Level of Care Code ED [employer]orer [employer] for [employer] Exam Comprehensive
[2021-03-26 22:54] VITALS: BP 118/68; PULSE 84; RESP 17; O2SAT 97
== END 2021-03-26 22:55 | disposition home or self-care (01) ==
PROVIDERS: Emergency Provider Nurse Practitioner Family; PCP Family Medicine
DX: C79.9 Secondary malignant neoplasm of unspecified site (principal); I25.10 Atherosclerotic heart disease of native coronary artery without angina pectoris; I10 Essential (primary) hypertension; Z85.118 Personal history of other malignant neoplasm of bronchus and lung; Z87.891 Personal history of nicotine dependence
CPT/HCPCS: 71045; 96372; 99283; J2405

== ENCOUNTER 2021-03-28 05:59 | Outpatient (CLI) | payer MEDICARE, OTHER, SELFPAY ==
--- NOTE | 2021-03-28 09:41 | XRR_ITS ---
PROCEDURE INFORMATION: Exam: XR Abdomen Exam date and time: 03/28/2021 9:55 AM Age: 70 years old Clinical indication: Abdominal pain; Localized; Lower; Prior surgery; Surgery type: Hernia; Additional info: Lung ca/abdominal pain TECHNIQUE: Imaging protocol: XR of the abdomen. Views: 2 Views. Upright and supine views. COMPARISON: CT abdomen pelvis w con* [id number] 03/08/2021 5:55 AM FINDINGS: Gastrointestinal tract: Multiple dilated bowel loops are present in the left upper quadrant consistent with a mild ileus. There is a moderate fecal stasis in the ascending colon. Intraperitoneal space: Normal. No free air. Bones/joints: Unremarkable for age. Caliceal stones are seen in the projection of the proximal collecting system of the left kidney. These findings were visible on prior CT chest abdomen examination. XR/XR abdomen min 2V [id number] IMPRESSION: 1. Moderate ileus 2. Moderate fecal stasis ascending colon. 3. Stable caliceal stones left kidney. 4. Otherwise negative examination
--- NOTE | 2021-03-29 07:32 | ONC FU_ITS ---
Dr. Brower Patient Follow-Up Note Patient: Logan Maynard Unit #: [id number]: 1950 Dicatated By: Gerald Brower M.D.Date of Visit:March 28, 2021 Onc Med Follow-up/Prog Note Chief Complaint: Lung cancer/basal cell skin cancer. History of Present Illness: This is a 70 year-old man with stage IV non-small cell lung cancer and a locally advanced basal cell carcinoma involving the right frontal scalp. He had initially presented to Dr. Sanchez in July with an enlarging right frontal scalp skin lesion. He was referred to Dr. Pugh and determined on biopsy to have basal cell carcinoma. His subsequent evaluation included a head CT on 09/24/2018 which showed a lobulated right frontal scalp mass measuring 4.5 x 4.2 x 0.7 cm with invasion of the right frontal bone cortex. There was abnormal attenuation noted in the right frontal lobe measuring 4.0 x 3.2 cm. Metastatic or primary brain tumor was suspected, and MRI was recommended. Further evaluation with PET/CT on 10/04/2018 reportedly showed uptake in a right middle lobe lung mass and in right paratracheal and right hilar lymph nodes. There was also uptake in cervical lymph nodes bilaterally. Neck CT on 10/20/2018 showed multiple enlarged pathologic appearing lower cervical level III and level IV lymph nodes as well as enlarged supraclavicular and anterior mediastinal lymph nodes. These corresponded to FDG avid lymph nodes on the PET/CT. 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 The tumor cells showed strong cytoplasmic staining for CK-HMW, moderately strong cytoplasmic staining for CK-CAM 5.2, and strong nuclear positivity for TTF-1. He was then seen by Dr. Harding in [place] for resection of the basal cell carcinoma and he subsequently had pulmonary consultation there with Dr. Brandon Doyle. Repeat PET/CT on 11/13/2018 showed similar findings with FDG avid right middle lobe lung mass measuring 3.6 x 3 cm and hypermetabolic ruba disease which included bilateral lower cervical chain, supraclavicular, mediastinal, and right hilar lymph nodes. There was a questionable tiny focus of hypermetabolic activity in the liver. The irregular skin lesion on the forehead was hypermetabolic and showed evidence of calvarial invasion. Chest CT on 11/17/2018 showed right middle lobe mass measuring 4.1 cm with enlarged mediastinal, right hilar, and supraclavicular lymph nodes. Bilateral subcentimeter pulmonary nodules were too small to characterize. On 11/28/2018 he underwent bronchoscopy with EBUS/FNA of the right middle lobe mass and station 11 R lymph node. The lymph node biopsy was nondiagnostic. Biopsy from the right middle lobe lung mass was positive for adenocarcinoma. It was noted that a very limited amount of tumor was present. PD-L1 testing was going to be attempted, but there was insufficient material present for additional studies. Following the procedure he developed urinary retention, which ultimately did improve with tamsulosin. However, in the meantime, he also developed hypertension. He was admitted to the hospital on 12/09/2017, and his cardiac evaluation at that time was negative for any acute ischemia. He returned to the emergency room one week later with new onset of dizziness and vomiting. CT abdomen/pelvis showed persistent right middle lobe lung mass, measuring about 3 cm. There was partial atelectasis of the right middle lobe and there was additional bilateral lower lobe subsegmental atelectasis and/or interstitial pneumonia. Head CT showed persistent and increased degree of vasogenic edema of the right frontal lobe suggestive of underlying neoplastic process. Irregular marginated frontal scalp lesion showed increased degree of subtle outer table cortical erosion of the underlying right frontal calvarium. He was admitted to the hospital and placed on IV dexamethasone and empiric IV antibiotic coverage with Levaquin. Further evaluation with brain MRI on 12/18/2018 showed a right frontal lobe enhancing neoplastic lesion measuring 1.5 x 1.2 x 1.4 cm. The appearance was suggestive of a solitary metastatic lesion. There was associated vasogenic white matter edema. His symptoms had improved with steroid therapy, and he was discharged home on dexamethasone 4 mg twice a day. He also continued antibiotic coverage with Levaquin. He was then seen by Dr. Munguia and he began electron-beam radiation to the scalp lesion on 12/22/2018. On 12/25/2018 he underwent SRS to the metastatic lesion in the brain, total dose 2000 cGy. He then continued with electron-beam radiation, and he completed treatment to the skin lesion on 01/16/2019, total dose 5500 cGy. In the meantime, I had requested a next generation sequencing study which showed low PD-L1 expression, reported at 10% to 22C3 by IHC. The ALK and ROS 1 gene rearrangements were not detected, and a BRAF mutation was not detected. 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 On 02/16/2019 he began cycle 1 of systemic therapy with carboplatin/pemetrexed chemotherapy in combination with pembrolizumab. He tolerated it without significant toxicity. He continued with cycle 2 on 03/11/2019. His CBC at day 8 showed a decrease in his granulocyte count to 900. It resolved uneventfully with Neupogen. He continued with cycle 3 on 03/31/2019 and with cycle 4 on 04/21/2019, both administered with Neulasta prophylactically. Restaging PET/CT on 05/16/2019 showed resolution of the basal cell carcinoma of the right forehead. There was also resolution of bilateral jugulodigastric and supraclavicular lymph nodes compared to the prior study from September 2018. Superior mediastinal, right paratracheal, right parabronchial, and right hilar territory lymph nodes which previously had been prominent were noted to be subcentimeter in size with FDG uptake similar to mediastinal background. A 1.5 cm right paratracheal index lymph node was no longer identified. The 2.3 x 2.1 cm right lung mass was noted to be FDG negative, consistent with a complete response to therapy. He then continued on to maintenance therapy with pembrolizumab 200 mg by IV infusion every 3 weeks. He completed cycle 1 on 05/27/2019 and cycle 2 on 06/16/2019. Restaging MRI of the head on 2018 showed marginal decrease in the size of the right posterior frontal metastatic lesion compared to the March 2019 study. There was decreased associated white matter edema. There were no new metastatic lesions identified. However, following his cycle 2 pembrolizumab, he developed significant musculoskeletal pain, particularly in the upper extremities. The pain initially improved on prednisone 10 mg twice a day, but they worsened again when the prednisone dosage was tapered down. He opted not to take any further treatment. However, with PET/CT evidence of complete response to treatment, Dr. Munguia had recommended consolidation radiation to the right lung. He ultimately did agree to the treatment, which he completed on 10/26/2019 to a total dose of 6000 cGy. He was then followed on observation/expectant management. As of his follow-up visit in January 2020 he appeared stable clinically but he then failed to return for further follow-up due to the coronavirus pandemic. In May 2020 he underwent excision of the remaining lesion in the right frontal calvarium with skin grafting. I did not receive any of those records. He also underwent bilateral cataract excisions. His other medical illnesses include hypertension, coronary artery disease, hiatal hernia/GERD, and benign prostatic hypertrophy. He has a history of smoking for 27 years, in the range of 2-3 packs of cigarettes daily. He quit smoking in 1992. He does not drink alcohol,but he did have significant alcohol use in the past. INTERIM HISTORY: His restaging brain MRI on 11/08/2020 showed multiple new subcentimeter enhancing supratentorial metastatic lesions, estimated at 4 in number. These ranged in size from 4 to 7 mm. Also noted was a new 4.2 mm peripheral enhancing left cerebellar metastatic lesion and there was additional tiny suspected metastatic lesion along the left mid temporal horn. The previously described right posterior frontal lesion was not significantly changed. Restaging CT scans of the chest, abdomen, and pelvis on 11/15/2020 showed a new 2 cm right adrenal nodule which appeared suspicious for a metastatic lesion. A lytic bone lesion involve the right lateral aspect of T8 vertebral body showed mild pathologic compression and also was suspicious for metastatic disease. Also noted were bilateral inguinal hernias containing unobstructed small bowel. Given in the MRI findings, he then underwent palliative whole brain radiation, completed on 12/02/2020 to a total dose of 3000 cGy administered in 10 fractions. He tolerated the treatment well. Restaging PET/CT on 03/18/2021 showed a new medial right middle lobe pulmonary nodule measuring 2.7 x 1.8 cm with SUV 8.8, consistent with recurrence. The lytic lesion at T8 was also FDG avid with SUV 22.8 and there was additional osseous metastasis noted in the posterior right acetabulum with SUV 13.8. Also noted was development of FDG avid bilateral adrenal metastases, SUV 8.2 in the right and 6.7 on the left. He is seen for a follow-up visit. He has not been feeling good generally. His energy is very low and his activity has been very limited. His ECOG score is 3. He has appetite but he says that food does not taste good. His weight is down 30 pounds. He does not have fever or night sweats, but he has been having some chills. He has been having pain in his right side off and on. It has been getting gradually worse. It was bad enough on Saturday that he went to the emergency room. He also has been having pain in the left side of the neck and left shoulder and he has pain in his right leg. He has been having some difficulty swallowing. He sometimes has shortness of breath. He does not complain of cough and he otherwise has not been having chest pain. He has been having ongoing problems with constipation. Lately his stools have been loose, but still very infrequent. Bladder function remains adequate, though he complains that he has no pressure. He does not complain of headache. He does have some dizziness. The tips of his fingers sometimes feel very sensitive. He has no other focal neurologic symptoms. Medications: Gabapentin 1 Capsule (of 300 mg) Oral b.i.d., Ibuprofen 2 (200 mg) Tablet Oral PRN, MiraLax Pack Oral, Probiotic Daily 1 Capsule Oral daily Allergies: Sulfonylureas Vital Signs: Performed on March 28, 2021 08:25 Height - 70.00 in Weight - 165.2 lbs (LOW) BSA - 1.92 sq.m BMI - 23.70 Temperature - 98.0 F (LOW) Pulse - 80 /min Respiration - 18 /min BP - 125/76 mm(hg) O2 Sat - 99 % Pain - 5 Fatigue - 5 Physical Examination: Constitutional - He appears somewhat weak generally, Eyes - Sclerae nonicteric. Conjunctivae clear, ENMT - No lesions noted in the oral cavity, Hematologic/Lymphatic - No cervical, clavicular, or axillary adenopathy, Respiratory - Lungs are clear with diminished air movement bilaterally, Cardiovascular - Heart rhythm is regular. There is no murmur, gallop, or rub noted, Abdomen - Mildly distended. Liver and spleen are not enlarged. There is no abdominal mass or ascites noted and there is no inguinal adenopathy, Back/Spine - There is no bony tenderness noted in the spine or ribs, Extremities - No edema, Neurologic - No focal neurologic deficits noted. Problem List: 1. Non-small cell carcinoma involving the middle lobe of the right lung, stage IV ( T2a, N3, M1b). There was CT evidence of multiple sites of lymph node involvement with biopsy proven involvement in a tracheoesophageal lymph node at his initial diagnosis in October 2018. There was some discrepancy in the reported histology of the 2 biopsies, but this was likely related to the small sample size of the lung biopsy. 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 The PD-L1 expression was reported low at 10%. 2. There was MRI evidence of solitary brain metastasis involving the right frontal lobe. 3. He also had a locally advanced basal cell skin carcinoma involving the right frontal scalp. Treatment included radiation followed later by surgical resection/grafting. 4. Hypertension. 5. Coronary artery disease with previous myocardial infarction and angioplasty/stent placement. 6. Hiatal hernia/GERD. 7. Benign prostatic hypertrophy with recent urinary retention. 8. Nephrolithiasis. Problems Addressed with this Encounter and Plan: 1. Patient with non-small cell carcinoma involving the middle lobe of the right lung, stage IV ( T2a, N3, M1b). There was CT evidence of multiple sites of lymph node involvement with biopsy proven involvement in a tracheoesophageal lymph node at his initial diagnosis in October 2018. There was some discrepancy in the reported histology of the 2 biopsies, but this was likely related to the small sample size of the lung biopsy. 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 The PD-L1 expression was reported low at 10%. He initially underwent SRS to the brain metastasis and he also completed radiation to the basal cell carcinoma. He then had a very good response to systemic therapy with 4 cycles of carboplatin/pemetrexed chemotherapy in combination with pembrolizumab, administered from 02/16/2019 through 04/22/2019. He then continued maintenance pembrolizumab, but it was stopped after 2 cycles due to side effects, the most significant being joint pain. He was then given consolidation radiation to the neck/chest area, completed on 10/26/2019 to a total dose of 6000 cGy. In November 2020 he completed palliative whole brain radiation for progression of metastatic disease in the brain. He now has evidence of additional disease progression with local recurrence in the middle of the right lung, development of bilateral adrenal metastases, and development of 2 sites of metastatic bone involvement. The latter do not appear to be overtly symptomatic, but there has been a significant decline in his performance status. I reviewed options for further management which may include a trial of second line chemotherapy with Taxotere, second line immunotherapy, or combined chemotherapy/immunotherapy. I reviewed potential side effects with the treatments. In the setting of declining performance status, I am concerned about the potential for toxicity with the chemotherapy-containing regimen, I think the best option would be immunotherapy alone. The other option we discussed is to just continue with symptomatic/supportive care. At this point he is motivated to continue treatment, and he will return to begin a trial of therapy with pembrolizumab, subject to verification of insurance coverage. 2. He has having significant constipation. I will check an abdominal xray today. He will be started on a bowel regimen as indicated. Signed By: Gerald Brower M.D. <<Signature on File>>
== END 2021-03-28 06:00 | disposition home or self-care (01) ==
PROVIDERS: PCP Family Medicine; Visit Provider Internal Medicine Medical Oncology
DX: C44.41 Basal cell carcinoma of skin of scalp and neck (principal); C34.2 Malignant neoplasm of middle lobe, bronchus or lung; C77.8 Secondary and unspecified malignant neoplasm of lymph nodes of multiple regions; C79.31 Secondary malignant neoplasm of brain; C79.51 Secondary malignant neoplasm of bone; I10 Essential (primary) hypertension; I25.10 Atherosclerotic heart disease of native coronary artery without angina pectoris; Z95.5 Presence of coronary angioplasty implant and graft; K44.9 Diaphragmatic hernia without obstruction or gangrene; K21.9 Gastro-esophageal reflux disease without esophagitis; N40.1 Benign prostatic hyperplasia with lower urinary tract symptoms; R33.9 Retention of urine, unspecified; N20.0 Calculus of kidney; Z79.899 Other long term (current) drug therapy
CPT/HCPCS: 74019; 99215

== ENCOUNTER 2021-04-04 06:09 | Outpatient (CLI) | payer MEDICARE, OTHER, SELFPAY ==
[2021-04-04 12:16] LABS: Eosinophils # 0.2 10^3/uL (0.0-0.8); Eosinophils % 4.2 %; Hematocrit 35.6 % (42.0-52.0); Hemoglobin 11.3 g/dL (11.7-16.6); Lymphocytes # 0.5 10^3/uL (0.8-4.8); Lymphocytes % 13.5 %; Mean Corpuscular HGB Conc 31.7 g/dL (30.0-36.0); Mean Corpuscular Hemoglobin 30.9 pg (28.0-34.0); Mean Corpuscular Volume 97.3 fL (80-94); Mean Platelet Volume 11.8 fL (7.4-10.4); Monocytes # 0.6 10^3/uL (0.2-0.9); Monocytes % 14.6 %; Neutrophils # 2.56 10^3/uL (1.8-7.7); Neutrophils % 66.7 %; Nucleated Red Blood Cells % 0 %; Platelet Count 215 10^3/cmm (130-400); Red Blood Count 3.66 10^6/uL (4.1-5.3); Red Cell Distribution Width 13.4 % (12.1-15.1); White Blood Count 3.8 10^3/uL (4.0-10.0)
[2021-04-04] MEDS: sodium chloride 0.9% 250 ML 125 ML IV (12:34)
[2021-04-04 12:56] LABS: Alanine Aminotransferase < 5 U/L (0-41); Albumin Level 4.1 g/dL (3.5-5.2); Alkaline Phosphatase 100 IU/L (40-130); Anion Gap 12.1 (5-19); Aspartate Amino Transferase 12 U/L (0-40); Blood Urea Nitrogen 20 mg/dL (8-23); Calcium 8.8 mg/dL (8.5-10.5); Carbon Dioxide 29 mmol/L (22-29); Chloride 103 mmol/L (98-107); Globulin 3.5 g/dL (1.3-4.6); Glucose 76 mg/dL (65-115); Osmolality Calculated 291 mOsm/kg (285-295); Potassium 4.1 mmol/L (3.5-5.1); Sodium 140 mmol/L (136-145); Thyroid Stimulating Hormone 7.35 uIU/mL (0.27-4.20); Total Bilirubin 0.4 mg/dL (0.15-1.2); Total Protein 7.6 g/dL (6.6-8.7)
[2021-04-04 13:35] LABS: Hepatitis B Core AB, Total Non-Reactive (Nonreactive); Hepatitis B Surface AB 3.5 (11.5-1000); Hepatitis B Surface Antigen Non-Reactive (Nonreactive)
== END 2021-04-04 06:10 | disposition home or self-care (01) ==
LOC: ONCMED 06:11
PROVIDERS: PCP Family Medicine; Visit Provider Nurse Practitioner
DX: Z51.12 Encounter for antineoplastic immunotherapy (principal); C34.2 Malignant neoplasm of middle lobe, bronchus or lung; C77.8 Secondary and unspecified malignant neoplasm of lymph nodes of multiple regions; C79.31 Secondary malignant neoplasm of brain; C79.2 Secondary malignant neoplasm of skin; E03.9 Hypothyroidism, unspecified; Z79.899 Other long term (current) drug therapy
CPT/HCPCS: 80053; 84443; 85025; 86705; 86706; 87340; 96413; J7050; J9271

== ENCOUNTER 2021-05-17 05:50 | Outpatient (RCR) | payer MEDICARE, OTHER, SELFPAY ==
[2021-04-25 14:26] LABS: Basophils % 0.7 %; Eosinophils # 0.2 10^3/uL (0.0-0.8); Eosinophils % 4.7 %; Hematocrit 39.8 % (42.0-52.0); Hemoglobin 12.6 g/dL (11.7-16.6); Lymphocytes # 0.7 10^3/uL (0.8-4.8); Lymphocytes % 14.6 %; Mean Corpuscular HGB Conc 31.7 g/dL (30.0-36.0); Mean Corpuscular Hemoglobin 30.1 pg (28.0-34.0); Mean Platelet Volume 11.3 fL (7.4-10.4); Monocytes # 0.6 10^3/uL (0.2-0.9); Monocytes % 13.1 %; Neutrophils # 2.96 10^3/uL (1.8-7.7); Neutrophils % 66.7 %; Nucleated Red Blood Cells % 0 %; Platelet Count 245 10^3/cmm (130-400); Red Blood Count 4.19 10^6/uL (4.1-5.3); Red Cell Distribution Width 12.3 % (12.1-15.1); White Blood Count 4.4 10^3/uL (4.0-10.0)
[2021-04-25 14:42] LABS: Alanine Aminotransferase < 5 U/L (0-41); Albumin Level 4.2 g/dL (3.5-5.2); Alkaline Phosphatase 134 IU/L (40-130); Aspartate Amino Transferase 10 U/L (0-40); Blood Urea Nitrogen 13 mg/dL (8-23); Carbon Dioxide 27 mmol/L (22-29); Chloride 100 mmol/L (98-107); Glucose 85 mg/dL (65-115); Osmolality Calculated 281 mOsm/kg (285-295); Sodium 136 mmol/L (136-145); Total Bilirubin 0.4 mg/dL (0.15-1.2); Total Protein 8.2 g/dL (6.6-8.7)
[2021-04-27] MEDS: sodium chloride 0.9% 1,000 ML 999 ML IV (14:20)
[2021-05-04 10:50] LABS: Basophils # 0.1 10^3/uL (0.0-0.1); Basophils % 1.2 %; Eosinophils # 0.2 10^3/uL (0.0-0.8); Eosinophils % 4.2 %; Hematocrit 38.9 % (42.0-52.0); Hemoglobin 12.7 g/dL (11.7-16.6); Lymphocytes # 0.6 10^3/uL (0.8-4.8); Lymphocytes % 14.1 %; Mean Corpuscular HGB Conc 32.6 g/dL (30.0-36.0); Mean Corpuscular Hemoglobin 30.1 pg (28.0-34.0); Mean Corpuscular Volume 92.2 fL (80-94); Mean Platelet Volume 10.8 fL (7.4-10.4); Monocytes # 0.6 10^3/uL (0.2-0.9); Monocytes % 13.6 %; Neutrophils # 2.84 10^3/uL (1.8-7.7); Neutrophils % 66.7 %; Nucleated Red Blood Cells % 0 %; Platelet Count 267 10^3/cmm (130-400); Red Blood Count 4.22 10^6/uL (4.1-5.3); Red Cell Distribution Width 12.1 % (12.1-15.1); White Blood Count 4.3 10^3/uL (4.0-10.0)
[2021-05-04 11:50] VITALS: RESP 16; O2SAT 99
[2021-05-04] MEDS: morphine 4 mg/mL SDV 1 mL IV ×2 (11:50→13:10)
[2021-05-04] MEDS: dexamethasone 20 MG in sodium chloride 0.9% 50 ML 187 MG IV (11:55)
[2021-05-04 12:26] LABS: Alanine Aminotransferase < 5 U/L (0-41); Alkaline Phosphatase 129 IU/L (40-130); Anion Gap 16.2 (5-19); Aspartate Amino Transferase 12 U/L (0-40); Blood Urea Nitrogen 15 mg/dL (8-23); Calcium 8.9 mg/dL (8.5-10.5); Carbon Dioxide 25 mmol/L (22-29); Chloride 99 mmol/L (98-107); Globulin 3.3 g/dL (1.3-4.6); Glucose 101 mg/dL (65-115); Osmolality Calculated 283 mOsm/kg (285-295); Potassium 4.2 mmol/L (3.5-5.1); Sodium 136 mmol/L (136-145); Total Bilirubin 0.4 mg/dL (0.15-1.2); Total Protein 7.3 g/dL (6.6-8.7)
[2021-05-04 13:10] VITALS: RESP 18; O2SAT 99
[2021-05-04] MEDS: sodium chloride 0.9% 1,000 ML 999 ML IV (14:25)
--- NOTE | 2021-05-08 13:41 | N.ONRAD NP_ITS ---
Radiation Oncology Consultation Patient Name: Logan Maynard Date of : 1950 Date of Service: 05/08/2021 Attending Physician: Rafy Ta M.D. Logan Maynard was seen in consultation this afternoon at the request of Gerald New M.D. for consideration of palliative radiotherapy in the management of metastatic non-small cell lung cancer. He was initially diagnosed with an adenocarcinoma of the lung following a bronchoscopy performed in November 2018 of a mass in the right middle lobe of the lung. The right middle lobe lung mass was identified from a PET CT ordered in September 2018 during the work-up of a locally advanced basal cell carcinoma of the right frontal scalp. An MRI of the brain obtained in November 2018 revealed a 1.5 cm x 1.2 cm x 1.4 cm right frontal lobe lesion. Stereotactic radiosurgery was delivered to the metastatic deposit in December 2018. The neglected scalp basal cell carcinoma was concomitantly treated completing in January 2019. He received chemoimmunotherapy (carboplatin and pemetrexed) with a significant response to treatment. Consolidative radiotherapy was delivered completing in October 2019. An MRI of the brain performed on November 15, 2020 identified multiple new sub-centimeter enhancing supratentorial lesions. Whole brain radiotherapy was administered in November. He presented to the medical oncology office with worsening back pain on May 04, 2021. A PET CT (independently reviewed in [facility]) previously ordered on March 18, 2021 demonstrated a new right middle lobe nodule, bilateral adrenal metastases, and lytic lesions within the 8th thoracic vertebral body and right acetabulum, The patient was evaluated for palliative radiotherapy. I discussed with Mr. Maynard the role for palliative radiotherapy. I would recommend a 2-week course of radiation therapy. A CT scan will be acquired for radiotherapy planning prior to beginning treatment to delineate the gross tumor volume. I will order an abdominal series to evaluate his complaint of constipation and institute Fentanyl transdermal system on account of uncontrollable pain with his current narcotic prescription. The potential toxicities of thoracic spine radiotherapy were reviewed. The patient has verbalized understanding would like to proceed as recommended. Her medical treatment plan has been discussed with Gerald Brower M.D. Signed by: Dr. Rafy Ta 05/08/2021 1:43:05 PM
--- NOTE | 2021-05-08 14:18 | XRR_ITS ---
PROCEDURE INFORMATION: Exam: XR Abdomen Exam date and time: 05/08/2021 2:18 PM Age: 70 years old Clinical indication: Prior surgery; Surgery type: Hernia; Patient HX: Abd pain, constipation, tumor on back about to start radiation, HX of lung cancer with brain mets; Additional info: Abdominal pain/persistent constipation, stat TECHNIQUE: Imaging protocol: XR of the abdomen. Views: Frontal supine view of the abdomen. 1 View. COMPARISON: CR XR abdomen min 2V [id number] 03/28/2021 10:00 AM FINDINGS: Gastrointestinal tract: There is moderate colonic fecal stasis seen in the ascending and transverse colon. No bowel dilation. Organs: Caliceal stones are seen in the proximal collecting system of the left kidney stable since prior. The stones measure 8.5 mm and 9.6 mm respectively Bones/joints: Unremarkable. XR/XR KUB [id number] IMPRESSION: 1. No acute findings. 2. Stable caliceal stones left kidney
--- NOTE | 2021-05-09 | CT_ITS ---
Radiation Therapy Planning CT images; total exam DLP: 373.36 mGy-cm MTDD
[2021-05-10] MEDS: sodium chloride 0.9% 1,000 ML 999 ML IV (10:35)
[2021-05-11 14:30] VITALS: RESP 16
[2021-05-11] MEDS: morphine 4 mg/mL SDV 1 mL IV (14:30)
[2021-05-11] MEDS: dexamethasone 20 MG in sodium chloride 0.9% 50 ML 187 MG IV (14:35)
[2021-05-11] MEDS: sodium chloride 0.9% 1,000 ML 999 ML IV (14:52)
[2021-05-12] MEDS: sodium chloride 0.9% 1,000 ML 999 ML IV (13:10)
--- NOTE | 2021-05-14 21:03 | ONC FU_ITS ---
[facility] Patient Note Patient: Logan Maynard Unit #: [id number]: 1950 Dictated By: Dejan LizDate of Visit: Apr 25, 2021 Onc MED Follow-Up/Prog Note Chief Complaint: Lung cancer/basal cell skin cancer. History of Present Illness: Mr Maynard is a 70 year-old man with stage IV non-small cell lung cancer and a locally advanced basal cell carcinoma involving the right frontal scalp. He had initially presented to Dr. Sanchez in July with an enlarging right frontal scalp skin lesion. He was referred to Dr. Pugh and determined on biopsy to have basal cell carcinoma. His subsequent evaluation included a head CT on 09/24/2018 which showed a lobulated right frontal scalp mass measuring 4.5 x 4.2 x 0.7 cm with invasion of the right frontal bone cortex. There was abnormal attenuation noted in the right frontal lobe measuring 4.0 x 3.2 cm. Metastatic or primary brain tumor was suspected, and MRI was recommended. Further evaluation with PET/CT on 10/04/2018 reportedly showed uptake in a right middle lobe lung mass and in right paratracheal and right hilar lymph nodes. There was also uptake in cervical lymph nodes bilaterally. Neck CT on 10/20/2018 showed multiple enlarged pathologic appearing lower cervical level III and level IV lymph nodes as well as enlarged supraclavicular and anterior mediastinal lymph nodes. These corresponded to FDG avid lymph nodes on the PET/CT. 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 The tumor cells showed strong cytoplasmic staining for CK-HMW, moderately strong cytoplasmic staining for CK-CAM 5.2, and strong nuclear positivity for TTF-1. He was then seen by Dr. Harding in [place] for resection of the basal cell carcinoma and he subsequently had pulmonary consultation there with Dr. Brandon Doyle. Repeat PET/CT on 11/13/2018 showed similar findings with FDG avid right middle lobe lung mass measuring 3.6 x 3 cm and hypermetabolic ruba disease which included bilateral lower cervical chain, supraclavicular, mediastinal, and right hilar lymph nodes. There was a questionable tiny focus of hypermetabolic activity in the liver. The irregular skin lesion on the forehead was hypermetabolic and showed evidence of calvarial invasion. Chest CT on 11/17/2018 showed right middle lobe mass measuring 4.1 cm with enlarged mediastinal, right hilar, and supraclavicular lymph nodes. Bilateral subcentimeter pulmonary nodules were too small to characterize. On 11/28/2018 he underwent bronchoscopy with EBUS/FNA of the right middle lobe mass and station 11 R lymph node. The lymph node biopsy was nondiagnostic. Biopsy from the right middle lobe lung mass was positive for adenocarcinoma. It was noted that a very limited amount of tumor was present. PD-L1 testing was going to be attempted, but there was insufficient material present for additional studies. Following the procedure he developed urinary retention, which ultimately did improve with tamsulosin. However, in the meantime, he also developed hypertension. He was admitted to the hospital on 12/09/2017, and his cardiac evaluation at that time was negative for any acute ischemia. He returned to the emergency room one week later with new onset of dizziness and vomiting. CT abdomen/pelvis showed persistent right middle lobe lung mass, measuring about 3 cm. There was partial atelectasis of the right middle lobe and there was additional bilateral lower lobe subsegmental atelectasis and/or interstitial pneumonia. Head CT showed persistent and increased degree of vasogenic edema of the right frontal lobe suggestive of underlying neoplastic process. Irregular marginated frontal scalp lesion showed increased degree of subtle outer table cortical erosion of the underlying right frontal calvarium. He was admitted to the hospital and placed on IV dexamethasone and empiric IV antibiotic coverage with Levaquin. Further evaluation with brain MRI on 12/18/2018 showed a right frontal lobe enhancing neoplastic lesion measuring 1.5 x 1.2 x 1.4 cm. The appearance was suggestive of a solitary metastatic lesion. There was associated vasogenic white matter edema. His symptoms had improved with steroid therapy, and he was discharged home on dexamethasone 4 mg twice a day. He also continued antibiotic coverage with Levaquin. He was then seen by Dr. Munguia and he began electron-beam radiation to the scalp lesion on 12/22/2018. On 12/25/2018 he underwent SRS to the metastatic lesion in the brain, total dose 2000 cGy. He then continued with electron-beam radiation, and he completed treatment to the skin lesion on 01/16/2019, total dose 5500 cGy. In the meantime, Dr Brower had requested a next generation sequencing study which showed low PD-L1 expression, reported at 10% to 22C3 by IHC. The ALK and ROS 1 gene rearrangements were not detected, and a BRAF mutation was not detected. 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 On 02/16/2019 he began cycle 1 of systemic therapy with carboplatin/pemetrexed chemotherapy in combination with pembrolizumab. He tolerated it without significant toxicity. He continued with cycle 2 on 03/11/2019. His CBC at day 8 showed a decrease in his granulocyte count to 900. It resolved uneventfully with Neupogen. He continued with cycle 3 on 03/31/2019 and with cycle 4 on 04/21/2019, both administered with Neulasta prophylactically. Restaging PET/CT on 05/16/2019 showed resolution of the basal cell carcinoma of the right forehead. There was also resolution of bilateral jugulodigastric and supraclavicular lymph nodes compared to the prior study from September 2018. Superior mediastinal, right paratracheal, right parabronchial, and right hilar territory lymph nodes which previously had been prominent were noted to be subcentimeter in size with FDG uptake similar to mediastinal background. A 1.5 cm right paratracheal index lymph node was no longer identified. The 2.3 x 2.1 cm right lung mass was noted to be FDG negative, consistent with a complete response to therapy. He then continued on to maintenance therapy with pembrolizumab 200 mg by IV infusion every 3 weeks. He completed cycle 1 on 05/27/2019 and cycle 2 on 06/16/2019. Restaging MRI of the head on 2018 showed marginal decrease in the size of the right posterior frontal metastatic lesion compared to the March 2019 study. There was decreased associated white matter edema. There were no new metastatic lesions identified. However, following his cycle 2 pembrolizumab, he developed significant musculoskeletal pain, particularly in the upper extremities. The pain initially improved on prednisone 10 mg twice a day, but they worsened again when the prednisone dosage was tapered down. He opted not to take any further treatment. However, with PET/CT evidence of complete response to treatment, Dr. Munguia had recommended consolidation radiation to the right lung. He ultimately did agree to the treatment, which he completed on 10/26/2019 to a total dose of 6000 cGy. He was then followed on observation/expectant management. As of his follow-up visit in January 2020 he appeared stable clinically but he then failed to return for further follow-up due to the coronavirus pandemic. In May 2020 he underwent excision of the remaining lesion in the right frontal calvarium with skin grafting. We did not receive any of those records. He also underwent bilateral cataract excisions. His other medical illnesses include hypertension, coronary artery disease, hiatal hernia/GERD, and benign prostatic hypertrophy. He has a history of smoking for 27 years, in the range of 2-3 packs of cigarettes daily. He quit smoking in 1992. He does not drink alcohol,but he did have significant alcohol use in the past. INTERIM HISTORY: His restaging brain MRI on 11/08/2020 showed multiple new subcentimeter enhancing supratentorial metastatic lesions, estimated at 4 in number. These ranged in size from 4 to 7 mm. Also noted was a new 4.2 mm peripheral enhancing left cerebellar metastatic lesion and there was additional tiny suspected metastatic lesion along the left mid temporal horn. The previously described right posterior frontal lesion was not significantly changed. Restaging CT scans of the chest, abdomen, and pelvis on 11/15/2020 showed a new 2 cm right adrenal nodule which appeared suspicious for a metastatic lesion. A lytic bone lesion involve the right lateral aspect of T8 vertebral body showed mild pathologic compression and also was suspicious for metastatic disease. Also noted were bilateral inguinal hernias containing unobstructed small bowel. Given in the MRI findings, he then underwent palliative whole brain radiation, completed on 12/02/2020 to a total dose of 3000 cGy administered in 10 fractions. He tolerated the treatment well. Restaging PET/CT on 03/18/2021 showed a new medial right middle lobe pulmonary nodule measuring 2.7 x 1.8 cm with SUV 8.8, consistent with recurrence. The lytic lesion at T8 was also FDG avid with SUV 22.8 and there was additional osseous metastasis noted in the posterior right acetabulum with SUV 13.8. Also noted was development of FDG avid bilateral adrenal metastases, SUV 8.2 in the right and 6.7 on the left. He now has evidence of additional disease progression with local recurrence in the middle of the right lung, development of bilateral adrenal metastases, and development of 2 sites of metastatic bone involvement. The latter do not appear to be overtly symptomatic, but there has been a significant decline in his performance status. Dr Brower reviewed options for further management which may include a trial of second line chemotherapy with Taxotere, second line immunotherapy, or combined chemotherapy/immunotherapy. Dr Brower reviewed potential side effects with the treatments. In the setting of declining performance status, the concern was for the potential for toxicity with the chemotherapy-containing regimen, Dr Brower felt the best option would be immunotherapy alone. The other option discussed was to just continue with symptomatic/supportive care. He was motivated to continue treatment, and opted for a trial of therapy with pembrolizumab. He began his first cycle on April 04, 2021. Mr. Maynard is here today for follow-up and consideration of cycle 2 pembrolizumab. He states he tolerated it well overall. His only concern today is that he continues to have right-sided pain. He states he feels that his muscle. He states he is not tried any muscle relaxers recently would like a trial states this will give him some relief. He states he is unable to stand and paint or do any activities that he enjoys at this point. He denies any shortness of breath orthopnea. He has had no cough or hemoptysis. He denies any diarrhea or constipation. He states his bowels are moving well. He states he does have to work at them but his regimen is currently working as good as ever . His activity continues to be limited overall. He denies headaches or vision changes. States his appetite is good. He is in pretty good spirits overall and states that he is comfortable with his prognosis although he does want to pursue treatment. He states however if his treatment is unsuccessful he is at peace with that. His ECOG is 2. Past Medical History: Basal cell cancer involving the right frontal scalp Benign prostatic hypertrophy Coronary artery disease Gastroesophageal reflux disease Hiatal hernia Hypertension Past Surgical History: Coronary angioplasty/stent placement Left inguinal hernia repair Open reduction of right forearm fracture Covid vaccine #2 in 2020 Covid vaccine #1 in 2020 Cataracts in 2019 Skin graft to the top of the head in 2019 Bronchoscopy with EBUS/FNA of the right middle lobe mass and station 11 R lymph node in 2019 Biopsy of left lower neck tracheoesophageal groove neck mass in 2018 Allergies: Sulfonylureas Medications: Gas Relief Tablet, chewable Oral PRN HYDROcodone-Acetaminophen Tablet Oral PRN Ibuprofen 2 (200 mg) Tablet Oral PRN Levothyroxine Sodium 1 Tablet (of 100 mcg) Oral daily Probiotic Daily 1 Capsule Oral daily Family History: Mr. Maynard's mother is : stroke. Mr. Maynard's father at age 85: renal failure. Father of renal failure at age 85. His mother in 09/2019. She has had a stroke. Social History: Mr. Maynard is single and he is retired. Mr. Maynard quit smoking 26 years ago but had smoked 3.0 packs/day for 27 years. He is a former drinker. He has a history of smoking for 27 years in the range of 2-3 packs of cigarettes daily. He quit smoking in 1992. He has had alcohol use in the past, as much beer as I could drink . He cut down substantially about 25 years ago, and he currently does not drink alcohol. Review Of Symptoms: <See Above> Vital Signs: Performed on Apr 25, 2021 15:33 Height - 70.00 in Weight - 159.8 lbs (LOW) BSA - 1.90 sq.m BMI - 22.93 Temperature - 98.4 F Pulse - 71 /min Respiration - 18 /min BP - 98/63 mm(hg) O2 Sat - 98 % Pain - 1 Fatigue - 5,2 - Ambulatory/capable of all self-care, unable to perform any work activities. Up and about more than 50% of waking hours. (ECOG) Physical Examination: Constitutional Alert, oriented, no acute distress. Skin pink, warm and dry. Head Normocephalic; atraumatic. Eyes Conjunctivae and sclerae are clear and without icterus. Pupils are reactive and equal. Neck Supple without masses or thyromegaly. No jugular venous distension. Hematologic/Lymphatic No petechiae or purpura. No tender or palpable lymph nodes in the cervical or supraclavicular areas. Respiratory Lungs are clear to auscultation without rhonchi or wheezing. Cardiovascular Regular rate and rhythm of heart without murmurs,clicks, gallops or rubs. Back/Spine Non-tender to palpation. Extremities No visible deformities, no cyanosis, clubbing or edema. Musculoskeletal No tenderness or swelling, normal range of motion without obvious weakness. Integumentary No rashes or lesions. Neurologic No sensory or motor deficits, normal cerebellar function, normal gait. Psychiatric Alert and oriented times three. Coherent speech. Verbalizes understanding of our discussions today. Laboratory:Test performed on May 04, 2021 10:25 WBC 4.3 10 3/uL RBC 4.22 10 6/uL HGB 12.7 g/dL HCT 38.9 % MCV 92.2 fL MCH 30.1 pg MCHC 32.6 g/dL RDW 12.1 % Platelet Count 267 10 3/cmm MPV 10.8 fL Neutrophils 2.84 10 3/uL Lymphocytes 0.6 10 3/uL Monocytes 0.6 10 3/uL Eosinophils 0.2 10 3/uL Basophils 0.1 10 3/uL Neutrophil % 66.7 % Lymphocyte % 14.1 % Monocyte % 13.6 % Eosinophil % 4.2 % Basophils % 1.2 % NRBC % 0 % Test performed on Apr 25, 2021 13:30 Cr Clearance (Est) 62.2300 mL/min Test performed on Nov 15, 2020 07:51 TSH 0.07 uU/mL Manual Lymphocytes 19.8 % Manual Monocytes 15.3 % Manual Eosinophils 2.5 % Manual Basophils 0.8 % Impression: 1. Non-small cell carcinoma involving the middle lobe of the right lung, stage IV ( T2a, N3, M1b). There was CT evidence of multiple sites of lymph node involvement with biopsy proven involvement in a tracheoesophageal lymph node at his initial diagnosis in October 2018. There was some discrepancy in the reported histology of the 2 biopsies, but this was likely related to the small sample size of the lung biopsy. 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 The PD-L1 expression was reported low at 10%. 2. There was MRI evidence of solitary brain metastasis involving the right frontal lobe. 3. He also had a locally advanced basal cell skin carcinoma involving the right frontal scalp. Treatment included radiation followed later by surgical resection/grafting. 4. Hypertension. 5. Coronary artery disease with previous myocardial infarction and angioplasty/stent placement. 6. Hiatal hernia/GERD. 7. Benign prostatic hypertrophy with recent urinary retention. 8. Nephrolithiasis. Plan/Problems Addressed at this Visit: 1. Non-small cell carcinoma involving the middle lobe of the right lung, stage IV ( T2a, N3, M1b). There was CT evidence of multiple sites of lymph node involvement with biopsy proven involvement in a tracheoesophageal lymph node at his initial diagnosis in October 2018. There was some discrepancy in the reported histology of the 2 biopsies, but this was likely related to the small sample size of the lung biopsy. 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 The PD-L1 expression was reported low at 10%. He initially underwent SRS to the brain metastasis and he also completed radiation to the basal cell carcinoma. He then had a very good response to systemic therapy with 4 cycles of carboplatin/pemetrexed chemotherapy in combination with pembrolizumab, administered from 02/16/2019 through 04/22/2019. He then continued maintenance pembrolizumab, but it was stopped after 2 cycles due to side effects, the most significant being joint pain. He was then given consolidation radiation to the neck/chest area, completed on 10/26/2019 to a total dose of 6000 cGy. In November 2020 he completed palliative whole brain radiation for progression of metastatic disease in the brain. He now has evidence of additional disease progression with local recurrence in the middle of the right lung, development of bilateral adrenal metastases, and development of 2 sites of metastatic bone involvement. The latter do not appear to be overtly symptomatic, but there has been a significant decline in his performance status. Dr Brower reviewed options for further management which may include a trial of second line chemotherapy with Taxotere, second line immunotherapy, or combined chemotherapy/immunotherapy. Dr Brower reviewed potential side effects with the treatments. In the setting of declining performance status, the concern was for the potential for toxicity with the chemotherapy-containing regimen, Dr Brower felt the best option would be immunotherapy alone. The other option discussed was to just continue with symptomatic/supportive care. He was motivated to continue treatment, and opted for a trial of therapy with pembrolizumab. He began his first cycle on April 04, 2021. A. Proceed with cycle 2 pembrolizumab. B. Today's labs reviewed in detail discussed with Mr. Alaniz and a copy was given to him. WBC 4.4, hemoglobin 12.6, platelets 245,000 ANC is 2960. Potassium 4.0 creatinine 1.1 random glucose 85 and his LFTs are normal. His last TSH on April 04, 2021 was 7.35 however prior to that on November 15, 2020 it was 0.07. 2. He has having constipation. A. He continues with mag citrate and stool softeners. He will increase him to 2 twice daily to see if this will help. He also may try MiraLAX as needed. He states right now his bowels are moving well. He had a good bowel movement this morning. 3. Elevated TSH. A. His TSH on April 04, 2021 was 7.35. He is currently on levothyroxine 100 mcg daily. B. His dose was not changed today and we will recheck his TSH with his next cycle of pembrolizumab. 4. Mr. Maynard has persistent right-sided pain. I am concerned about the recurrence in the right middle lung causing this pain however he is convinced that his muscle pain and is requesting to try muscle relaxers. He does have a lytic lesion at T8 which had an SUV of 22.[address] from March 18, 2021. I am concerned that this could also be causing his pain and may need radiation. We discussed this at length but for now he wants to try the muscle relaxers. 5. Follow-up plan. A. We will try Soma for his right-sided pain but this is unsuccessful he may try Flexeril. He has been advised to call us and let us know how the Soma is working so that we can call in the Flexeril if needed. B. He will have supportive care with hydration, antiemetics, pain medicine or referral to radiation oncology for treatment of the T8 lesion if it seems to be persistent pain. C. We will plan to see him back in 3 weeks with CBC CMP TSH for consideration of cycle 3 pembrolizumab. D. Mr. Maynard was instructed to contact us in interim should questions or problems arise. Signed By: Dejan Liz-RANDY, [facility] Gerald Brower MD <<Signature on File>>
[2021-05-15] MEDS: sodium chloride 0.9% 1,000 ML 999 ML IV (14:45)
[2021-05-15 15:20] LABS: Basophils % 0.5 %; Eosinophils # 0.1 10^3/uL (0.0-0.8); Eosinophils % 1.3 %; Hematocrit 35.2 % (42.0-52.0); Hemoglobin 11.1 g/dL (11.7-16.6); Lymphocytes # 0.4 10^3/uL (0.8-4.8); Lymphocytes % 7.9 %; Mean Corpuscular HGB Conc 31.5 g/dL (30.0-36.0); Mean Corpuscular Hemoglobin 29.8 pg (28.0-34.0); Mean Corpuscular Volume 94.6 fL (80-94); Mean Platelet Volume 10.9 fL (7.4-10.4); Monocytes # 0.7 10^3/uL (0.2-0.9); Monocytes % 11.6 %; Neutrophils # 4.39 10^3/uL (1.8-7.7); Neutrophils % 78.3 %; Nucleated Red Blood Cells % 0 %; Platelet Count 230 10^3/cmm (130-400); Red Blood Count 3.72 10^6/uL (4.1-5.3); Red Cell Distribution Width 12.4 % (12.1-15.1); White Blood Count 5.6 10^3/uL (4.0-10.0)
[2021-05-15 15:58] LABS: Alanine Aminotransferase 19 U/L (0-41); Albumin Level 3.5 g/dL (3.5-5.2); Alkaline Phosphatase 129 IU/L (40-130); Anion Gap 13.5 (5-19); Aspartate Amino Transferase 23 U/L (0-40); Blood Urea Nitrogen 18 mg/dL (8-23); Calcium 8.8 mg/dL (8.5-10.5); Carbon Dioxide 25 mmol/L (22-29); Chloride 102 mmol/L (98-107); Glucose 88 mg/dL (65-115); Osmolality Calculated 283 mOsm/kg (285-295); Potassium 4.5 mmol/L (3.5-5.1); Sodium 136 mmol/L (136-145); Thyroid Stimulating Hormone 4.85 uIU/mL (0.27-4.20); Total Bilirubin 0.6 mg/dL (0.15-1.2); Total Protein 6.5 g/dL (6.6-8.7)
--- NOTE | 2021-05-15 22:44 | ONC FU_ITS ---
[facility] Patient Note Patient: Logan Maynard < Unit #: [id number]: 1950 Dictated By: Dejan LizDate of Visit: May 04, 2021 Onc MED Follow-Up/Prog Note Chief Complaint: Lung cancer/basal cell skin cancer. History of Present Illness: Mr Maynard is a 70 year-old man with stage IV non-small cell lung cancer and a locally advanced basal cell carcinoma involving the right frontal scalp. He had initially presented to Dr. Sanchez in July with an enlarging right frontal scalp skin lesion. He was referred to Dr. Pugh and determined on biopsy to have basal cell carcinoma. His subsequent evaluation included a head CT on 09/24/2018 which showed a lobulated right frontal scalp mass measuring 4.5 x 4.2 x 0.7 cm with invasion of the right frontal bone cortex. There was abnormal attenuation noted in the right frontal lobe measuring 4.0 x 3.2 cm. Metastatic or primary brain tumor was suspected, and MRI was recommended. Further evaluation with PET/CT on 10/04/2018 reportedly showed uptake in a right middle lobe lung mass and in right paratracheal and right hilar lymph nodes. There was also uptake in cervical lymph nodes bilaterally. Neck CT on 10/20/2018 showed multiple enlarged pathologic appearing lower cervical level III and level IV lymph nodes as well as enlarged supraclavicular and anterior mediastinal lymph nodes. These corresponded to FDG avid lymph nodes on the PET/CT. 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 The tumor cells showed strong cytoplasmic staining for CK-HMW, moderately strong cytoplasmic staining for CK-CAM 5.2, and strong nuclear positivity for TTF-1. He was then seen by Dr. Harding in [place] for resection of the basal cell carcinoma and he subsequently had pulmonary consultation there with Dr. Brandon Doyle. Repeat PET/CT on 11/13/2018 showed similar findings with FDG avid right middle lobe lung mass measuring 3.6 x 3 cm and hypermetabolic ruba disease which included bilateral lower cervical chain, supraclavicular, mediastinal, and right hilar lymph nodes. There was a questionable tiny focus of hypermetabolic activity in the liver. The irregular skin lesion on the forehead was hypermetabolic and showed evidence of calvarial invasion. Chest CT on 11/17/2018 showed right middle lobe mass measuring 4.1 cm with enlarged mediastinal, right hilar, and supraclavicular lymph nodes. Bilateral subcentimeter pulmonary nodules were too small to characterize. On 11/28/2018 he underwent bronchoscopy with EBUS/FNA of the right middle lobe mass and station 11 R lymph node. The lymph node biopsy was nondiagnostic. Biopsy from the right middle lobe lung mass was positive for adenocarcinoma. It was noted that a very limited amount of tumor was present. PD-L1 testing was going to be attempted, but there was insufficient material present for additional studies. Following the procedure he developed urinary retention, which ultimately did improve with tamsulosin. However, in the meantime, he also developed hypertension. He was admitted to the hospital on 12/09/2017, and his cardiac evaluation at that time was negative for any acute ischemia. He returned to the emergency room one week later with new onset of dizziness and vomiting. CT abdomen/pelvis showed persistent right middle lobe lung mass, measuring about 3 cm. There was partial atelectasis of the right middle lobe and there was additional bilateral lower lobe subsegmental atelectasis and/or interstitial pneumonia. Head CT showed persistent and increased degree of vasogenic edema of the right frontal lobe suggestive of underlying neoplastic process. Irregular marginated frontal scalp lesion showed increased degree of subtle outer table cortical erosion of the underlying right frontal calvarium. He was admitted to the hospital and placed on IV dexamethasone and empiric IV antibiotic coverage with Levaquin. Further evaluation with brain MRI on 12/18/2018 showed a right frontal lobe enhancing neoplastic lesion measuring 1.5 x 1.2 x 1.4 cm. The appearance was suggestive of a solitary metastatic lesion. There was associated vasogenic white matter edema. His symptoms had improved with steroid therapy, and he was discharged home on dexamethasone 4 mg twice a day. He also continued antibiotic coverage with Levaquin. He was then seen by Dr. Munguia and he began electron-beam radiation to the scalp lesion on 12/22/2018. On 12/25/2018 he underwent SRS to the metastatic lesion in the brain, total dose 2000 cGy. He then continued with electron-beam radiation, and he completed treatment to the skin lesion on 01/16/2019, total dose 5500 cGy. In the meantime, Dr Brower had requested a next generation sequencing study which showed low PD-L1 expression, reported at 10% to 22C3 by IHC. The ALK and ROS 1 gene rearrangements were not detected, and a BRAF mutation was not detected. 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 On 02/16/2019 he began cycle 1 of systemic therapy with carboplatin/pemetrexed chemotherapy in combination with pembrolizumab. He tolerated it without significant toxicity. He continued with cycle 2 on 03/11/2019. His CBC at day 8 showed a decrease in his granulocyte count to 900. It resolved uneventfully with Neupogen. He continued with cycle 3 on 03/31/2019 and with cycle 4 on 04/21/2019, both administered with Neulasta prophylactically. Restaging PET/CT on 05/16/2019 showed resolution of the basal cell carcinoma of the right forehead. There was also resolution of bilateral jugulodigastric and supraclavicular lymph nodes compared to the prior study from September 2018. Superior mediastinal, right paratracheal, right parabronchial, and right hilar territory lymph nodes which previously had been prominent were noted to be subcentimeter in size with FDG uptake similar to mediastinal background. A 1.5 cm right paratracheal index lymph node was no longer identified. The 2.3 x 2.1 cm right lung mass was noted to be FDG negative, consistent with a complete response to therapy. He then continued on to maintenance therapy with pembrolizumab 200 mg by IV infusion every 3 weeks. He completed cycle 1 on 05/27/2019 and cycle 2 on 06/16/2019. Restaging MRI of the head on 2018 showed marginal decrease in the size of the right posterior frontal metastatic lesion compared to the March 2019 study. There was decreased associated white matter edema. There were no new metastatic lesions identified. However, following his cycle 2 pembrolizumab, he developed significant musculoskeletal pain, particularly in the upper extremities. The pain initially improved on prednisone 10 mg twice a day, but they worsened again when the prednisone dosage was tapered down. He opted not to take any further treatment. However, with PET/CT evidence of complete response to treatment, Dr. Munguia had recommended consolidation radiation to the right lung. He ultimately did agree to the treatment, which he completed on 10/26/2019 to a total dose of 6000 cGy. He was then followed on observation/expectant management. As of his follow-up visit in January 2020 he appeared stable clinically but he then failed to return for further follow-up due to the coronavirus pandemic. In May 2020 he underwent excision of the remaining lesion in the right frontal calvarium with skin grafting. We did not receive any of those records. He also underwent bilateral cataract excisions. His other medical illnesses include hypertension, coronary artery disease, hiatal hernia/GERD, and benign prostatic hypertrophy. He has a history of smoking for 27 years, in the range of 2-3 packs of cigarettes daily. He quit smoking in 1992. He does not drink alcohol,but he did have significant alcohol use in the past. INTERIM HISTORY: His restaging brain MRI on 11/08/2020 showed multiple new subcentimeter enhancing supratentorial metastatic lesions, estimated at 4 in number. These ranged in size from 4 to 7 mm. Also noted was a new 4.2 mm peripheral enhancing left cerebellar metastatic lesion and there was additional tiny suspected metastatic lesion along the left mid temporal horn. The previously described right posterior frontal lesion was not significantly changed. Restaging CT scans of the chest, abdomen, and pelvis on 11/15/2020 showed a new 2 cm right adrenal nodule which appeared suspicious for a metastatic lesion. A lytic bone lesion involve the right lateral aspect of T8 vertebral body showed mild pathologic compression and also was suspicious for metastatic disease. Also noted were bilateral inguinal hernias containing unobstructed small bowel. Given in the MRI findings, he then underwent palliative whole brain radiation, completed on 12/02/2020 to a total dose of 3000 cGy administered in 10 fractions. He tolerated the treatment well. Restaging PET/CT on 03/18/2021 showed a new medial right middle lobe pulmonary nodule measuring 2.7 x 1.8 cm with SUV 8.8, consistent with recurrence. The lytic lesion at T8 was also FDG avid with SUV 22.8 and there was additional osseous metastasis noted in the posterior right acetabulum with SUV 13.8. Also noted was development of FDG avid bilateral adrenal metastases, SUV 8.2 in the right and 6.7 on the left. He now has evidence of additional disease progression with local recurrence in the middle of the right lung, development of bilateral adrenal metastases, and development of 2 sites of metastatic bone involvement. The latter do not appear to be overtly symptomatic, but there has been a significant decline in his performance status. Dr Brower reviewed options for further management which may include a trial of second line chemotherapy with Taxotere, second line immunotherapy, or combined chemotherapy/immunotherapy. Dr Brower reviewed potential side effects with the treatments. In the setting of declining performance status, the concern was for the potential for toxicity with the chemotherapy-containing regimen, Dr Brower felt the best option would be immunotherapy alone. The other option discussed was to just continue with symptomatic/supportive care. He was motivated to continue treatment, and opted for a trial of therapy with pembrolizumab. He began his first cycle on April 04, 2021. Mr. Maynard received cycle 2 pembrolizumab on April 25, 2021. He states he tolerated it well overall. His only concern wass that he continued to have right-sided pain. We did try Soma and Flexeril his request for muscle relaxer . This did not alleviate his pain. He apparently called him with complaints of worsening pain. He was advised to come to the clinic per the nursing staff. He presents today in significant pain. He states he is unable to lay on the right side. We had discussed concerns of bone metastasis and he is willing to consult with radiation oncology today. We will give him some IV pain medication and hydration and antiemetics if needed. We will have him consult with radiation oncology and follow-up accordingly. He denies any recent trauma or falls. He denies any fever or chills. He states his breathing is about the same other than when he is having such bad pain he is more short of breath. He denies any orthopnea. He states his bowels are better but he still has some intermittent constipation but states he thinks that is better overall. He has a known T8 lesion on I feel that this is what is giving him significant pain. His ECOG today is 2. Past Medical History: Basal cell cancer involving the right frontal scalp Benign prostatic hypertrophy Coronary artery disease Gastroesophageal reflux disease Hiatal hernia Hypertension Past Surgical History: Coronary angioplasty/stent placement Left inguinal hernia repair Open reduction of right forearm fracture Covid vaccine #2 in 2020 Covid vaccine #1 in 2020 Cataracts in 2019 Skin graft to the top of the head in 2019 Bronchoscopy with EBUS/FNA of the right middle lobe mass and station 11 R lymph node in 2019 Biopsy of left lower neck tracheoesophageal groove neck mass in 2018 Allergies: Sulfonylureas Medications: Gas Relief Tablet, chewable Oral PRN HYDROcodone-Acetaminophen Tablet Oral PRN Ibuprofen 2 (200 mg) Tablet Oral PRN Levothyroxine Sodium 1 Tablet (of 100 mcg) Oral daily Probiotic Daily 1 Capsule Oral daily Family History: Mr. Maynard's mother is : stroke. Mr. Maynard's father at age 85: renal failure. Father of renal failure at age 85. His mother in 09/2019. She has had a stroke. Social History: Mr. Maynard is single and he is retired. Mr. Manyard quit smoking 26 years ago but had smoked 3.0 packs/day for 27 years. He is a former drinker. He has a history of smoking for 27 years in the range of 2-3 packs of cigarettes daily. He quit smoking in 1992. He has had alcohol use in the past, as much beer as I could drink . He cut down substantially about 25 years ago, and he currently does not drink alcohol. Review Of Symptoms: <See Above> Vital Signs: Performed on May 04, 2021 11:13 Height - 70.00 in Temperature - 97.4 F (LOW) Pulse - 79 /min Respiration - 18 /min BP - 148/86 mm(hg) (HIGH) O2 Sat - 99 % Pain - 9 Fatigue - 9 Performed on May 04, 2021 09:22 Height - 70.00 in Temperature - 97.4 F (LOW) Pulse - 70 /min Respiration - 18 /min BP - 106/67 mm(hg) O2 Sat - 98 % Pain - 9 Fatigue - 8,2 - Ambulatory/capable of all self-care, unable to perform any work activities. Up and about more than 50% of waking hours. (ECOG) Physical Examination: Constitutional Alert, oriented, no acute distress-but obviously uncomfortable. Skin pink, warm and dry. Head Normocephalic; atraumatic. Eyes Conjunctivae and sclerae are clear and without icterus. Pupils are reactive and equal. Hematologic/Lymphatic No petechiae or purpura. No tender or palpable lymph nodes in the cervical or supraclavicular areas. Respiratory Lungs are clear to auscultation without rhonchi or wheezing. Cardiovascular Regular rate and rhythm of heart without murmurs,clicks, gallops or rubs. Extremities No visible deformities, no cyanosis, clubbing or edema. Musculoskeletal No tenderness or swelling, normal range of motion without obvious weakness. Integumentary No rashes or lesions. Neurologic No sensory or motor deficits, normal cerebellar function, normal gait. Psychiatric Alert and oriented times three. Coherent speech. Verbalizes understanding of our discussions today. Laboratory:Test performed on May 04, 2021 11:42 Sodium 136 mmol/L Potassium 4.2 mmol/L Chloride 99 mmol/L CO2 25 mmol/L Anion Gap 16.2 BUN 15 mg/dL Creatinine 0.9 mg/dL Cr Clearance (Est) 75.21 mL/min Glucose 101 mg/dL Osmolality - Calculated 283 mOsm/kg Calcium 8.9 mg/dL Protein, Total 7.3 g/dL Albumin 4.0 g/dL Globulin 3.3 g/dL Bilirubin, Total 0.4 mg/dL ALT (SGPT) < 5 U/L AST (SGOT) 12 U/L Alkaline Phosphatase 129 IU/L Test performed on May 04, 2021 10:25 WBC 4.3 10 3/uL RBC 4.22 10 6/uL HGB 12.7 g/dL HCT 38.9 % MCV 92.2 fL MCH 30.1 pg MCHC 32.6 g/dL RDW 12.1 % Platelet Count 267 10 3/cmm MPV 10.8 fL Neutrophils 2.84 10 3/uL Lymphocytes 0.6 10 3/uL Monocytes 0.6 10 3/uL Eosinophils 0.2 10 3/uL Basophils 0.1 10 3/uL Neutrophil % 66.7 % Lymphocyte % 14.1 % Monocyte % 13.6 % Eosinophil % 4.2 % Basophils % 1.2 % NRBC % 0 % Test performed on Nov 15, 2020 07:51 TSH 0.07 uU/mL Manual Lymphocytes 19.8 % Manual Monocytes 15.3 % Manual Eosinophils 2.5 % Manual Basophils 0.8 % Impression: 1. Non-small cell carcinoma involving the middle lobe of the right lung, stage IV ( T2a, N3, M1b). There was CT evidence of multiple sites of lymph node involvement with biopsy proven involvement in a tracheoesophageal lymph node at his initial diagnosis in October 2018. There was some discrepancy in the reported histology of the 2 biopsies, but this was likely related to the small sample size of the lung biopsy. 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 The PD-L1 expression was reported low at 10%. 2. There was MRI evidence of solitary brain metastasis involving the right frontal lobe. 3. He also had a locally advanced basal cell skin carcinoma involving the right frontal scalp. Treatment included radiation followed later by surgical resection/grafting. 4. Hypertension. 5. Coronary artery disease with previous myocardial infarction and angioplasty/stent placement. 6. Hiatal hernia/GERD. 7. Benign prostatic hypertrophy with recent urinary retention. 8. Nephrolithiasis. Plan/Problems Addressed at this Visit: 1. Non-small cell carcinoma involving the middle lobe of the right lung, stage IV ( T2a, N3, M1b). There was CT evidence of multiple sites of lymph node involvement with biopsy proven involvement in a tracheoesophageal lymph node at his initial diagnosis in October 2018. There was some discrepancy in the reported histology of the 2 biopsies, but this was likely related to the small sample size of the lung biopsy. 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 The PD-L1 expression was reported low at 10%. He initially underwent SRS to the brain metastasis and he also completed radiation to the basal cell carcinoma. He then had a very good response to systemic therapy with 4 cycles of carboplatin/pemetrexed chemotherapy in combination with pembrolizumab, administered from 02/16/2019 through 04/22/2019. He then continued maintenance pembrolizumab, but it was stopped after 2 cycles due to side effects, the most significant being joint pain. He was then given consolidation radiation to the neck/chest area, completed on 10/26/2019 to a total dose of 6000 cGy. In November 2020 he completed palliative whole brain radiation for progression of metastatic disease in the brain. He now has evidence of additional disease progression with local recurrence in the middle of the right lung, development of bilateral adrenal metastases, and development of 2 sites of metastatic bone involvement. The latter did not appear to be overtly symptomatic, but there had been a significant decline in his performance status. Dr Brower reviewed options for further management which may include a trial of second line chemotherapy with Taxotere, second line immunotherapy, or combined chemotherapy/immunotherapy. Dr Brower reviewed potential side effects with the treatments. In the setting of declining performance status, the concern was for the potential for toxicity with the chemotherapy-containing regimen, Dr Brower felt the best option would be immunotherapy alone. The other option discussed was to just continue with symptomatic/supportive care. He was motivated to continue treatment, and opted for a trial of therapy with pembrolizumab. He began his first cycle on April 04, 2021. A. cycle 2 pembrolizumab given on 04/25/2021. 2. Acute Pain-severe suspected to be due to T8 metastatic lesion. A. Referral to radiation oncology. B. Morphine sulfate IV 5 mg and may repeat once for pain. He will also have hydration with 1 L normal saline and 20 mg of IV dexamethasone. He may repeat this daily as needed. 3. Follow-up plan. A. He will have supportive care with hydration, antiemetics, pain medicine or referral to radiation oncology for treatment of the T8 lesion.. B. We will plan to see him back as scheduled with CBC CMP TSH for consideration of cycle 3 pembrolizumab. C. Mr. Maynard was instructed to contact us in interim should questions or problems arise. Signed By: Dejan Liz-, AOP Gerald Brower MD <<Signature on File>>
[2021-05-16 12:45] VITALS: RESP 18; O2SAT 97
[2021-05-16] MEDS: sodium chloride 0.9% 1,000 ML 75 ML IV (12:45)
[2021-05-16] MEDS: dexamethasone 20 MG in sodium chloride 0.9% 50 ML 187 MG IV (12:45)
[2021-05-16] MEDS: morphine 4 mg/mL SDV 1 mL 5 MG IV (12:45)
--- NOTE | 2021-05-16 15:01 | ONCRAD TMN_ITS ---
Radiation Oncology Treatment Management Note Patient Name: Logan Maynard Date of : 1950 Date of Service: 05/16/2021 Attending Physician: Rafy Ta M.D. Logan Maynard is a 70 year old white male diagnosed with metastatic non-small cell lung cancer (adenocarcinoma in November 2018). He presented to the medical oncology office with worsening back pain on May 04, 2021. A PET CT previously ordered on March 18, 2021 demonstrated a new right middle lobe nodule, bilateral adrenal metastases, and lytic lesions within the 8th thoracic vertebral body and right acetabulum, The patient has received 15 Gy of a prescribed 30 Cronin to T8 with a 3-dimensional conformal radiotherapy plan utilizing wedge pair treatment garcia. Upon review of systems, he denied any neurological complaints. Pain is better. No significant changes with constipation. On physical examination, the patient weighed 157 lbs. His temperature was 97.6 ???F with a blood pressure of 100/70 mmHg. His pulse was 57 bpm and his respiratory rate was 18. No erythema was present within the skin. Continue palliative radiotherapy as prescribed. Increase fentanyl patch to 50 ucg/hr and MiraLAX to bid. Signed by: Dr. Rafy Ta 05/16/2021 3:00:23 PM
[2021-05-17 14:47] VITALS: RESP 18; O2SAT 98
[2021-05-17] MEDS: morphine 4 mg/mL SDV 1 mL 5 MG IV (14:47)
[2021-05-17] MEDS: sodium chloride 0.9% 1,000 ML 999 ML IV (15:10)
--- NOTE | 2021-05-24 03:55 | ONC FU_ITS ---
[facility] Patient Note Patient: Logan Maynard < Unit #: [id number]: 1950 Dictated By: Dejan LizDate of Visit: May 16, 2021 Onc MED Follow-Up/Prog Note Chief Complaint: Lung cancer/basal cell skin cancer. History of Present Illness: Mr Maynard is a 70 year-old man with stage IV non-small cell lung cancer and a locally advanced basal cell carcinoma involving the right frontal scalp. He had initially presented to Dr. Sanchez in July with an enlarging right frontal scalp skin lesion. He was referred to Dr. Pugh and determined on biopsy to have basal cell carcinoma. His subsequent evaluation included a head CT on 09/24/2018 which showed a lobulated right frontal scalp mass measuring 4.5 x 4.2 x 0.7 cm with invasion of the right frontal bone cortex. There was abnormal attenuation noted in the right frontal lobe measuring 4.0 x 3.2 cm. Metastatic or primary brain tumor was suspected, and MRI was recommended. Further evaluation with PET/CT on 10/04/2018 reportedly showed uptake in a right middle lobe lung mass and in right paratracheal and right hilar lymph nodes. There was also uptake in cervical lymph nodes bilaterally. Neck CT on 10/20/2018 showed multiple enlarged pathologic appearing lower cervical level III and level IV lymph nodes as well as enlarged supraclavicular and anterior mediastinal lymph nodes. These corresponded to FDG avid lymph nodes on the PET/CT. 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 The tumor cells showed strong cytoplasmic staining for CK-HMW, moderately strong cytoplasmic staining for CK-CAM 5.2, and strong nuclear positivity for TTF-1. He was then seen by Dr. Harding in [place] for resection of the basal cell carcinoma and he subsequently had pulmonary consultation there with Dr. Brandon Doyle. Repeat PET/CT on 11/13/2018 showed similar findings with FDG avid right middle lobe lung mass measuring 3.6 x 3 cm and hypermetabolic ruba disease which included bilateral lower cervical chain, supraclavicular, mediastinal, and right hilar lymph nodes. There was a questionable tiny focus of hypermetabolic activity in the liver. The irregular skin lesion on the forehead was hypermetabolic and showed evidence of calvarial invasion. Chest CT on 11/17/2018 showed right middle lobe mass measuring 4.1 cm with enlarged mediastinal, right hilar, and supraclavicular lymph nodes. Bilateral subcentimeter pulmonary nodules were too small to characterize. On 11/28/2018 he underwent bronchoscopy with EBUS/FNA of the right middle lobe mass and station 11 R lymph node. The lymph node biopsy was nondiagnostic. Biopsy from the right middle lobe lung mass was positive for adenocarcinoma. It was noted that a very limited amount of tumor was present. PD-L1 testing was going to be attempted, but there was insufficient material present for additional studies. Following the procedure he developed urinary retention, which ultimately did improve with tamsulosin. However, in the meantime, he also developed hypertension. He was admitted to the hospital on 12/09/2017, and his cardiac evaluation at that time was negative for any acute ischemia. He returned to the emergency room one week later with new onset of dizziness and vomiting. CT abdomen/pelvis showed persistent right middle lobe lung mass, measuring about 3 cm. There was partial atelectasis of the right middle lobe and there was additional bilateral lower lobe subsegmental atelectasis and/or interstitial pneumonia. Head CT showed persistent and increased degree of vasogenic edema of the right frontal lobe suggestive of underlying neoplastic process. Irregular marginated frontal scalp lesion showed increased degree of subtle outer table cortical erosion of the underlying right frontal calvarium. He was admitted to the hospital and placed on IV dexamethasone and empiric IV antibiotic coverage with Levaquin. Further evaluation with brain MRI on 12/18/2018 showed a right frontal lobe enhancing neoplastic lesion measuring 1.5 x 1.2 x 1.4 cm. The appearance was suggestive of a solitary metastatic lesion. There was associated vasogenic white matter edema. His symptoms had improved with steroid therapy, and he was discharged home on dexamethasone 4 mg twice a day. He also continued antibiotic coverage with Levaquin. He was then seen by Dr. Munguia and he began electron-beam radiation to the scalp lesion on 12/22/2018. On 12/25/2018 he underwent SRS to the metastatic lesion in the brain, total dose 2000 cGy. He then continued with electron-beam radiation, and he completed treatment to the skin lesion on 01/16/2019, total dose 5500 cGy. In the meantime, Dr Brower had requested a next generation sequencing study which showed low PD-L1 expression, reported at 10% to 22C3 by IHC. The ALK and ROS 1 gene rearrangements were not detected, and a BRAF mutation was not detected. 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 On 02/16/2019 he began cycle 1 of systemic therapy with carboplatin/pemetrexed chemotherapy in combination with pembrolizumab. He tolerated it without significant toxicity. He continued with cycle 2 on 03/11/2019. His CBC at day 8 showed a decrease in his granulocyte count to 900. It resolved uneventfully with Neupogen. He continued with cycle 3 on 03/31/2019 and with cycle 4 on 04/21/2019, both administered with Neulasta prophylactically. Restaging PET/CT on 05/16/2019 showed resolution of the basal cell carcinoma of the right forehead. There was also resolution of bilateral jugulodigastric and supraclavicular lymph nodes compared to the prior study from September 2018. Superior mediastinal, right paratracheal, right parabronchial, and right hilar territory lymph nodes which previously had been prominent were noted to be subcentimeter in size with FDG uptake similar to mediastinal background. A 1.5 cm right paratracheal index lymph node was no longer identified. The 2.3 x 2.1 cm right lung mass was noted to be FDG negative, consistent with a complete response to therapy. He then continued on to maintenance therapy with pembrolizumab 200 mg by IV infusion every 3 weeks. He completed cycle 1 on 05/27/2019 and cycle 2 on 06/16/2019. Restaging MRI of the head on 2018 showed marginal decrease in the size of the right posterior frontal metastatic lesion compared to the March 2019 study. There was decreased associated white matter edema. There were no new metastatic lesions identified. However, following his cycle 2 pembrolizumab, he developed significant musculoskeletal pain, particularly in the upper extremities. The pain initially improved on prednisone 10 mg twice a day, but they worsened again when the prednisone dosage was tapered down. He opted not to take any further treatment. However, with PET/CT evidence of complete response to treatment, Dr. Munguia had recommended consolidation radiation to the right lung. He ultimately did agree to the treatment, which he completed on 10/26/2019 to a total dose of 6000 cGy. He was then followed on observation/expectant management. As of his follow-up visit in January 2020 he appeared stable clinically but he then failed to return for further follow-up due to the coronavirus pandemic. In May 2020 he underwent excision of the remaining lesion in the right frontal calvarium with skin grafting. We did not receive any of those records. He also underwent bilateral cataract excisions. His other medical illnesses include hypertension, coronary artery disease, hiatal hernia/GERD, and benign prostatic hypertrophy. He has a history of smoking for 27 years, in the range of 2-3 packs of cigarettes daily. He quit smoking in 1992. He does not drink alcohol,but he did have significant alcohol use in the past. INTERIM HISTORY: His restaging brain MRI on 11/08/2020 showed multiple new subcentimeter enhancing supratentorial metastatic lesions, estimated at 4 in number. These ranged in size from 4 to 7 mm. Also noted was a new 4.2 mm peripheral enhancing left cerebellar metastatic lesion and there was additional tiny suspected metastatic lesion along the left mid temporal horn. The previously described right posterior frontal lesion was not significantly changed. Restaging CT scans of the chest, abdomen, and pelvis on 11/15/2020 showed a new 2 cm right adrenal nodule which appeared suspicious for a metastatic lesion. A lytic bone lesion involve the right lateral aspect of T8 vertebral body showed mild pathologic compression and also was suspicious for metastatic disease. Also noted were bilateral inguinal hernias containing unobstructed small bowel. Given in the MRI findings, he then underwent palliative whole brain radiation, completed on 12/02/2020 to a total dose of 3000 cGy administered in 10 fractions. He tolerated the treatment well. Restaging PET/CT on 03/18/2021 showed a new medial right middle lobe pulmonary nodule measuring 2.7 x 1.8 cm with SUV 8.8, consistent with recurrence. The lytic lesion at T8 was also FDG avid with SUV 22.8 and there was additional osseous metastasis noted in the posterior right acetabulum with SUV 13.8. Also noted was development of FDG avid bilateral adrenal metastases, SUV 8.2 in the right and 6.7 on the left. He now has evidence of additional disease progression with local recurrence in the middle of the right lung, development of bilateral adrenal metastases, and development of 2 sites of metastatic bone involvement. The latter do not appear to be overtly symptomatic, but there has been a significant decline in his performance status. Dr Brower reviewed options for further management which may include a trial of second line chemotherapy with Taxotere, second line immunotherapy, or combined chemotherapy/immunotherapy. Dr Brower reviewed potential side effects with the treatments. In the setting of declining performance status, the concern was for the potential for toxicity with the chemotherapy-containing regimen, Dr Brower felt the best option would be immunotherapy alone. The other option discussed was to just continue with symptomatic/supportive care. He was motivated to continue treatment, and opted for a trial of therapy with pembrolizumab. He began his first cycle on April 04, 2021. Mr. Maynard received cycle 2 pembrolizumab on April 25, 2021. He states he tolerated it well. He presented on May 04 with worsening right-sided pain. We did try Soma and Flexeril his request for muscle relaxer Prior to the May 04, 2021 appointment. This did not alleviate his pain. 117 2020 he was given IV hydration and IV pain medication and referred to radiation oncology. Since then he has been receiving daily hydration and IV pain medication as indicated but also daily radiation to the T8 thoracic vertebral body and right acetabulum. He states he is feeling better overall. His pain continues to be a problem at times but is well controlled with the IV morphine and hydration when he is here as well as the morphine at home. He remains very jovial. He denies any nausea or vomiting. His performance status is still pretty marginal he can do his own ADLs but requires extra time . He cannot do things that he wants to be doing such as standing and painting but states he thinks that is getting better. He is able to stand a bit longer at times now since starting the radiation. He denies any new concerns today. His ECOG is 2. Past Medical History: Basal cell cancer involving the right frontal scalp Benign prostatic hypertrophy Coronary artery disease Gastroesophageal reflux disease Hiatal hernia Hypertension Past Surgical History: Coronary angioplasty/stent placement Left inguinal hernia repair Open reduction of right forearm fracture Covid vaccine #2 in 2020 Covid vaccine #1 in 2020 Cataracts in 2019 Skin graft to the top of the head in 2019 Bronchoscopy with EBUS/FNA of the right middle lobe mass and station 11 R lymph node in 2019 Biopsy of left lower neck tracheoesophageal groove neck mass in 2018 Allergies: Sulfonylureas Medications: Gas Relief Tablet, chewable Oral PRN HYDROcodone-Acetaminophen Tablet Oral PRN Ibuprofen 2 (200 mg) Tablet Oral PRN Levothyroxine Sodium 1 Tablet (of 100 mcg) Oral daily Probiotic Daily 1 Capsule Oral daily Family History: Mr. Maynard's mother is : stroke. Mr. Maynard's father at age 85: renal failure. Father of renal failure at age 85. His mother in 09/2019. She has had a stroke. Social History: Mr. Maynard is single and he is retired. Mr. Maynard quit smoking 26 years ago but had smoked 3.0 packs/day for 27 years. He is a former drinker. He has a history of smoking for 27 years in the range of 2-3 packs of cigarettes daily. He quit smoking in 1992. He has had alcohol use in the past, as much beer as I could drink . He cut down substantially about 25 years ago, and he currently does not drink alcohol. Review Of Symptoms: <See Above> Vital Signs: Performed on May 16, 2021 14:36 Height - 70.00 in Weight - 157.4 lbs Temperature - 97.6 F Pulse - 68 Respiration - 18 BP - 122/65 mm(hg) O2 Sat - 97 % Pain - 5 Performed on May 16, 2021 14:36 BMI - 22.585 kg/m2 Performed on May 16, 2021 11:44 Height - 70.00 in Weight - 157.4 lbs (LOW) BSA - 1.89 sq.m BMI - 22.58 Temperature - 97.6 F (LOW) Pulse - 57 /min (LOW) Respiration - 18 /min BP - 100/70 mm(hg) O2 Sat - 99 % Pain - 3 Fatigue - 5,2 - Ambulatory/capable of all self-care, unable to perform any work activities. Up and about more than 50% of waking hours. (ECOG) Physical Examination: Constitutional Alert, oriented, no acute distress-but obviously uncomfortable. Skin pink, warm and dry. Head Normocephalic; scalp wound has healed. Eyes Conjunctivae and sclerae are clear and without icterus. Pupils are reactive and equal. ENMT No oral exudates, ulcers, masses, thrush or mucositis. Oropharynx clear. Tongue normal. Neck Supple without masses or thyromegaly. No jugular venous distension. Hematologic/Lymphatic No petechiae or purpura. No tender or palpable lymph nodes in the cervical or supraclavicular areas. Respiratory Lungs are clear to auscultation without rhonchi or wheezing. Cardiovascular Regular rate and rhythm of heart without murmurs,clicks, gallops or rubs. Back/Spine Non-tender to palpation. Extremities No visible deformities, no cyanosis, clubbing or edema. Musculoskeletal No tenderness or swelling, normal range of motion without obvious weakness. Integumentary No rashes or lesions. Neurologic No sensory or motor deficits, normal cerebellar function, normal gait. Psychiatric Alert and oriented times three. Coherent speech. Verbalizes understanding of our discussions today. Laboratory:Test performed on May 15, 2021 14:55 Sodium 136 mmol/L TSH 4.85 uIU/mL Potassium 4.5 mmol/L Chloride 102 mmol/L CO2 25 mmol/L Anion Gap 13.5 BUN 18 mg/dL Creatinine 0.9 mg/dL Cr Clearance (Est) 74.92 mL/min Glucose 88 mg/dL Osmolality - Calculated 283 mOsm/kg Calcium 8.8 mg/dL Protein, Total 6.5 g/dL Albumin 3.5 g/dL Globulin 3.0 g/dL Bilirubin, Total 0.6 mg/dL ALT (SGPT) 19 U/L AST (SGOT) 23 U/L Alkaline Phosphatase 129 IU/L WBC 5.6 10 3/uL RBC 3.72 10 6/uL HGB 11.1 g/dL HCT 35.2 % MCV 94.6 fL MCH 29.8 pg MCHC 31.5 g/dL RDW 12.4 % Platelet Count 230 10 3/cmm MPV 10.9 fL Neutrophils 4.39 10 3/uL Lymphocytes 0.4 10 3/uL Monocytes 0.7 10 3/uL Eosinophils 0.1 10 3/uL Basophils 0.0 10 3/uL Neutrophil % 78.3 % Lymphocyte % 7.9 % Monocyte % 11.6 % Eosinophil % 1.3 % Basophils % 0.5 % NRBC % 0 % Impression: 1. Non-small cell carcinoma involving the middle lobe of the right lung, stage IV ( T2a, N3, M1b). There was CT evidence of multiple sites of lymph node involvement with biopsy proven involvement in a tracheoesophageal lymph node at his initial diagnosis in October 2018. There was some discrepancy in the reported histology of the 2 biopsies, but this was likely related to the small sample size of the lung biopsy. 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 The PD-L1 expression was reported low at 10%. 2. There was MRI evidence of solitary brain metastasis involving the right frontal lobe. 3. He also had a locally advanced basal cell skin carcinoma involving the right frontal scalp. Treatment included radiation followed later by surgical resection/grafting. 4. Hypertension. 5. Coronary artery disease with previous myocardial infarction and angioplasty/stent placement. 6. Hiatal hernia/GERD. 7. Benign prostatic hypertrophy with recent urinary retention. 8. Nephrolithiasis. Plan/Problems Addressed at this Visit: 1. Non-small cell carcinoma involving the middle lobe of the right lung, stage IV ( T2a, N3, M1b). There was CT evidence of multiple sites of lymph node involvement with biopsy proven involvement in a tracheoesophageal lymph node at his initial diagnosis in October 2018. There was some discrepancy in the reported histology of the 2 biopsies, but this was likely related to the small sample size of the lung biopsy. 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 The PD-L1 expression was reported low at 10%. He initially underwent SRS to the brain metastasis and he also completed radiation to the basal cell carcinoma. He then had a very good response to systemic therapy with 4 cycles of carboplatin/pemetrexed chemotherapy in combination with pembrolizumab, administered from 02/16/2019 through 04/22/2019. He then continued maintenance pembrolizumab, but it was stopped after 2 cycles due to side effects, the most significant being joint pain. He was then given consolidation radiation to the neck/chest area, completed on 10/26/2019 to a total dose of 6000 cGy. In November 2020 he completed palliative whole brain radiation for progression of metastatic disease in the brain. He now has evidence of additional disease progression with local recurrence in the middle of the right lung, development of bilateral adrenal metastases, and development of 2 sites of metastatic bone involvement. The latter did not appear to be overtly symptomatic, but there had been a significant decline in his performance status. Dr Brower reviewed options for further management which may include a trial of second line chemotherapy with Taxotere, second line immunotherapy, or combined chemotherapy/immunotherapy. Dr Brower reviewed potential side effects with the treatments. In the setting of declining performance status, the concern was for the potential for toxicity with the chemotherapy-containing regimen, Dr Brower felt the best option would be immunotherapy alone. The other option discussed was to just continue with symptomatic/supportive care. He was motivated to continue treatment, and opted for a trial of therapy with pembrolizumab. He began his first cycle on April 04, 2021. A. cycle 2 pembrolizumab given on 04/25/2021. B. We will plan to hold his immunotherapy until completion of his radiation which should be within the next 10 days. His performance status is still pretty marginal. I am also obviously concerned about pneumonitis as he has had so many complications. C. We will start him on prednisone 5 mg daily for appetite is that this will help with his performance status at all. D. We will plan to see him back in 2 weeks with CBC CMP and TSH. E. Mr. Maynard was instructed to contact us in interim should questions or problems arise. 2. Acute Pain-severe suspected to be due to T8 metastatic lesion. A. His pain is he has been undergoing radiation therapy. He is also receiving pain medication with MSIR (orally) every 4 hours. He is receiving supportive care here in the clinic and has required IV morphine with his IV hydration and radiation therapy. 3. Follow-up plan. A. He will have supportive care with hydration, antiemetics, pain medicine and completion of the planned radiation oncology for treatment of the T8 lesion.. B. We will plan to see him back in 2 weeks with CBC CMP TSH for consideration of cycle 3 pembrolizumab. C. Mr. Maynard was instructed to contact us in interim should questions or problems arise. Signed By: Dejan Liz-, [facility] Gerald Brower MD <<Signature on File>>
== END 2021-05-17 23:59 | disposition home or self-care (01) ==
LOC: ONCMED 05:50
PROVIDERS: Internal Medicine Medical Oncology; Nurse Practitioner; Absent Provider Radiology Radiation Oncology; PCP Family Medicine; Visit Provider Radiology Radiation Oncology
DX: Z51.0 Encounter for antineoplastic radiation therapy (principal); Z51.12 Encounter for antineoplastic immunotherapy; C34.2 Malignant neoplasm of middle lobe, bronchus or lung; C79.31 Secondary malignant neoplasm of brain; C77.8 Secondary and unspecified malignant neoplasm of lymph nodes of multiple regions; C79.51 Secondary malignant neoplasm of bone; I10 Essential (primary) hypertension; I25.10 Atherosclerotic heart disease of native coronary artery without angina pectoris; Z95.5 Presence of coronary angioplasty implant and graft; K44.9 Diaphragmatic hernia without obstruction or gangrene; K21.9 Gastro-esophageal reflux disease without esophagitis; N40.1 Benign prostatic hyperplasia with lower urinary tract symptoms; R33.9 Retention of urine, unspecified; N20.0 Calculus of kidney; Z85.828 Personal history of other malignant neoplasm of skin; Z79.899 Other long term (current) drug therapy
CPT/HCPCS: 36415; 74018; 77290; 77295; 77300; 77334; 77387; 77412; 80053; 84443; 85025; 96360; 96361; 96365; 96374; 96375; 96376; 96413; 99214; 99215; J1100; J2270; J7030; J7050; J9271

== ENCOUNTER 2021-05-18 06:51 | Outpatient (RCR) | payer MEDICARE, OTHER, SELFPAY ==
[2021-05-18] MEDS: sodium chloride 0.9% 1,000 ML 999 ML IV (13:22)
== END 2021-05-19 15:00 | disposition home or self-care (01) ==
LOC: ONCMED 06:51
PROVIDERS: Absent Provider Radiology Radiation Oncology; PCP Family Medicine; Visit Provider Radiology Radiation Oncology
DX: Z51.0 Encounter for antineoplastic radiation therapy (principal); C44.41 Basal cell carcinoma of skin of scalp and neck; C34.2 Malignant neoplasm of middle lobe, bronchus or lung; C79.31 Secondary malignant neoplasm of brain; C77.8 Secondary and unspecified malignant neoplasm of lymph nodes of multiple regions; C79.51 Secondary malignant neoplasm of bone; Z79.899 Other long term (current) drug therapy
CPT/HCPCS: 77014; 77336; 77387; 77412; 96360; J7030